=== PATIENT | male | born 1980 | race American Indian/Alaskan Native ===

== ENCOUNTER 2018-06-17 09:27 | Inpatient (IN) | payer OTHER, SELFPAY ==
[2018-06-17] MEDS ORDERED: NITRO-BID 2% TP ONE (10:13)
[2018-06-17] MEDS ORDERED: NORMODYNE IV ONE ×3 (10:16→11:15)
[2018-06-17 10:19] LABS: Basophils % (Auto) 0.4 % (0.0-1.8); Eosinophils # (Auto) 0.1 K/mm3 (0.0-0.4); Eosinophils % (Auto) 1.4 % (0.0-4.3); Hematocrit 27.2 % (35.5-45.6); Hemoglobin 8.4 gm/dl (11.8-15.2); Lymphocytes # (Auto) 1.6 K/mm3 (1.2-5.4); Lymphocytes % (Auto) 20.3 % (13.4-35.0); Mean Corpuscular HGB Conc 31 % (32-34); Mean Corpuscular Volume 77 fl (84-94); Monocytes # (Auto) 0.8 K/mm3 (0.0-0.8); Monocytes % (Auto) 10.5 % (0.0-7.3); Platelet Count 142 K/mm3 (140-440); Red Blood Count 3.54 M/mm3 (3.65-5.03); Red Cell Distribution Width 19.2 % (13.2-15.2)
--- NOTE | 2018-06-17 10:20 | Emergency Department Report ---
ED Chest Pain HPI - General Chief Complaint: Chest Pain Stated Complaint: CP Time Seen by Provider: 06/17/18 10:01 Source: patient Mode of arrival: Stretcher Limitations: No Limitations - History of Present Illness Initial Comments: Mr. Gross is a very pleasant 38-year-old male who presents to the ER with his via EMS. He has a history of severe hypertension, chronic kidney disease CHF COPD and depression. He has had 3 days of reproducible chest pain with exertion. However today became more severe. He was crying due to such severe pain. Pain Is Sharp Central radiating to the neck and back. He has associated shortness of breath. Denies hand pain now is 0 out of 10 after aspirin and nitroglycerin provided by EMS. He did have history of angina. According to his 's recollection, ge was admitted approximately one year ago at [facility] for "angina". No history of heart attack. Mr. Gross Is followed by nephrology, cardiology and PCP are within the [facility]. He has never received treatment at our hospital. MD Complaint: chest pain -: Gradual, days(s) (3) Onset: during rest, during exertion Pain Location: substernal Pain Radiation: back Severity: severe Severity scale (0 -10): 10 Quality: sharp Consistency: constant Improves With: nitroglycerin Worsens With: exertion re: dyspnea Treatments Prior to Arrival: aspirin, nitroglycerin Aspirin use within the Past 7 Days: (1) Yes - Related Data Home Medications Medication Instructions Recorded Confirmed Last Taken Hydralazine HCl 50 mg PO TID 06/17/18 06/17/18 06/16/18 50 ISOSORBIDE MONOnitrate [Imdur ER] 60 mg PO QDAY 06/17/18 06/17/18 06/16/18 60 Metoprolol Xl [Metoprolol 100 mg PO DAILY 06/17/18 06/17/18 06/16/18 SUCCINATE ER TAB] 100 NIFEdipine [Nifedipine ER] 90 mg PO DAILY 06/17/18 06/17/18 06/16/18 90 Pantoprazole [Protonix] 40 mg PO QDAY 06/17/18 06/17/18 06/16/18 40 Allergies Allergy/AdvReac Type Severity Reaction Status Date / Time ibuprofen Allergy Bleeding Verified 06/17/18 09:52 Heart Score - HEART Score History: Moderately suspicious EKG: Non-specific Age: < 45 Risk factors: > 3 risk factors or hx of atherosclerotic disease Troponin: 1-3x normal limit HEART Score: 5 ED Review of Systems ROS: Stated complaint: CP Other details as noted in HPI Comment: All other systems reviewed and negative Constitutional: denies: fever, malaise Respiratory: denies: cough Cardiovascular: chest pain Gastrointestinal: denies: abdominal pain, nausea, vomiting ED Past Medical Hx - Past Medical History Previous Medical History?: Yes Hx Hypertension: Yes Hx Congestive Heart Failure: Yes Hx GERD: Yes Hx Renal Disease: Yes Hx Psychiatric Treatment: Yes (Depression) - Surgical History Additional Surgical History: Vasectomy - Social History Smoking Status: Never Smoker Substance Use Type: None - Medications Home Medications: Home Medications Medication Instructions Recorded Confirmed Last Taken Type Hydralazine HCl 50 mg PO TID 06/17/18 06/17/18 06/16/18 History 50 ISOSORBIDE MONOnitrate [Imdur ER] 60 mg PO QDAY 06/17/18 06/17/18 06/16/18 History 60 Metoprolol Xl [Metoprolol 100 mg PO DAILY 06/17/18 06/17/18 06/16/18 History SUCCINATE ER TAB] 100 NIFEdipine [Nifedipine ER] 90 mg PO DAILY 06/17/18 06/17/18 06/16/18 History 90 Pantoprazole [Protonix] 40 mg PO QDAY 06/17/18 06/17/18 06/16/18 History 40 ED Physical Exam - General Limitations: No Limitations General appearance: alert, in no apparent distress - Head Head exam: Present: atraumatic, normocephalic - Eye Eye exam: Present: normal appearance - ENT ENT exam: Present: mucous membranes moist - Neck Neck exam: Present: normal inspection. Absent: tenderness, meningismus - Respiratory Respiratory exam: Present: normal lung sounds bilaterally. Absent: respiratory distress, wheezes, rales, rhonchi - Cardiovascular Cardiovascular Exam: Present: regular rate, normal rhythm, normal heart sounds. Absent: systolic murmur, diastolic murmur, rubs, gallop - GI/Abdominal GI/Abdominal exam: Present: soft. Absent: distended, tenderness, guarding, rebound - Rectal Rectal exam: Present: deferred - Extremities Exam Extremities exam: Present: normal inspection - Back Exam Back exam: Present: normal inspection - Neurological Exam Neurological exam: Present: alert, oriented X3 - Psychiatric Psychiatric exam: Present: normal affect, normal mood - Skin Skin exam: Present: warm, dry, intact, normal color. Absent: rash ED Course Vital Signs 06/17/18 06/17/18 06/17/18 09:35 09:54 10:20 Temperature 97.9 F Pulse Rate 86 89 Respiratory 13 14 Rate Blood Pressure 204/136 229/155 Blood Pressure [Left] O2 Sat by Pulse 95 93 Oximetry 06/17/18 06/17/18 06/17/18 10:52 11:07 11:16 Temperature Pulse Rate 79 79 82 Respiratory 14 12 11 L Rate Blood Pressure 240/140 240/140 Blood Pressure 221/135 [Left] O2 Sat by Pulse 93 99 98 Oximetry 06/17/18 06/17/18 06/17/18 11:17 11:30 11:46 Temperature Pulse Rate 83 82 84 Respiratory 15 17 Rate Blood Pressure 210/140 240/140 Blood Pressure [Left] O2 Sat by Pulse 97 97 Oximetry 06/17/18 06/17/18 06/17/18 12:00 12:16 12:30 Temperature Pulse Rate 88 93 H 93 H Respiratory 19 16 14 Rate Blood Pressure 172/106 165/102 164/94 Blood Pressure [Left] O2 Sat by Pulse 97 98 99 Oximetry 06/17/18 06/17/18 06/17/18 12:46 13:00 13:16 Temperature Pulse Rate 88 88 89 Respiratory 16 22 21 Rate Blood Pressure 164/94 146/87 146/87 Blood Pressure [Left] O2 Sat by Pulse 99 98 98 Oximetry 06/17/18 06/17/18 06/17/18 13:30 13:46 14:00 Temperature Pulse Rate 87 86 92 H Respiratory 13 24 16 Rate Blood Pressure 153/96 153/96 187/108 Blood Pressure [Left] O2 Sat by Pulse 98 96 99 Oximetry 06/17/18 14:16 Temperature Pulse Rate 91 H Respiratory 12 Rate Blood Pressure 187/108 Blood Pressure [Left] O2 Sat by Pulse 99 Oximetry ED Medical Decision Making - Lab Data Result diagrams: 06/17/18 10:07 06/17/18 10:07 Laboratory Results - last 24 hr 06/17/18 06/17/18 06/17/18 10:07 10:07 12:42 WBC 7.8 RBC 3.54 L Hgb 8.4 L Hct 27.2 L MCV 77 L MCH 24 L MCHC 31 L RDW 19.2 H Plt Count 142 Lymph % (Auto) 20.3 [place] % (Auto) 10.5 H Eos % (Auto) 1.4 Baso % (Auto) 0.4 Lymph # 1.6 [place] # 0.8 Eos # 0.1 Baso # 0.0 Seg Neutrophils % 67.4 Seg Neutrophils # 5.2 Sodium 144 Potassium 4.0 Chloride 109.4 H Carbon Dioxide 20 L Anion Gap 19 BUN 53 H Creatinine 9.7 H Estimated GFR 6 BUN/Creatinine Ratio 5 Glucose 91 Calcium 8.3 L Troponin T 0.100 H 0.103 H* Triglycerides 98 Cholesterol 161 LDL Cholesterol Direct 121 HDL Cholesterol 38 L Cholesterol/HDL Ratio 4.23 - EKG Data -: EKG Interpreted by Me - EKG Data 06/17/18 14:37 EKG time at 10:01 Normal sinus rhythm rate 80 beats a minute normal axis positive LVH with repolarization no evidence of infarct or ischemia - Radiology Data Radiology results: report reviewed Atelectasis or infiltrate of the right middle lobe according to radiology report, - Medical Decision Making Mr. Gross presents with chest pain and hypertensive emergency. Patient did not take his blood pressure medicines prior to arrival. Highest systolic blood pressure 240 mm Hg , he required multiple doses of IV and TP medications to obtain lower blood pressure. Once blood pressure decreased to systolic 144 mm hg, Mr. Gross developed nausea and vomiting. Chest pain easily resolved with nitroglycerin. Therefore I did not feel that patient had dissection or pulmonary embolism. He does have a known history of " angina". He has been prescribed isosorbide dinitrate. He will require cardiac evaluation. explained that he was admitted for anginal symptoms last year at the [facility]. No hx of ND. I have asked our law secretary to obtain medical records from [facility]. Ms. Gross is admitted to telemetry, hospitalist service. Dr. Barnes accepted admission. No indication of pneumonia according to clinical presentation. Critical Care Time: Yes Critical care time in (mins) excluding proc time.: 40 Critical care attestation.: If time is entered above; I have spent that time in minutes in the direct care of this critically ill patient, excluding procedure time. 40 minutes of critical care time excluding procedures were used in the care of the patient. Patient required multiple assessments and interventions. I updated family members at the bedside. I reviewed the electronic medical record. I spoke with jewelry consultant involved in the care of the patient. ED Disposition Clinical Impression: Acute coronary syndrome, Hypertensive emergency Disposition: DC-[id number] OP ADMIT IP TO THIS HOSP Is pt being admited?: Yes Does the pt Need Aspirin: No Condition: Stable
[2018-06-17 10:40] LABS: Calcium 8.3 mg/dL (8.4-10.2)
[2018-06-17 10:58] LABS: Chol/HDL Ratio 4.23 %
[2018-06-17] MEDS ORDERED: MORPHINE ONE (11:09)
[2018-06-17] MEDS ORDERED: MORPHINE IV ONE (11:15)
[2018-06-17] MEDS ORDERED: APRESOLINE IV ONE ×2 (11:26→14:31)
--- NOTE | 2018-06-17 13:31 | XRay Report ---
FINAL REPORT EXAM: XR CHEST 1V AP HISTORY: dyspnea COMPARISON: None. TECHNIQUE: Single frontal view of the chest FINDINGS: The cardiomediastinal silhouette is normal in appearance. There atelectasis of the right middle lobe. The left lung is clear. No pleural effusion or pneumothor ax. No acute bony or soft tissue abnormality. IMPRESSION: Atelectasis or infiltrate of the right middle lobe.
[2018-06-17] MEDS ORDERED: PROTONIX PO ONE (14:41)
[2018-06-17] MEDS ORDERED: APRESOLINE PO ONE (14:41)
[2018-06-17] MEDS ORDERED: TOPROL XL PO ONE (14:41)
[2018-06-17] MEDS: ZOFRAN IV ONE ×2 (15:02→16:01)
[2018-06-17] MEDS ORDERED: PROCARDIA XL PO ONE (15:30)
[2018-06-17] MEDS ORDERED: APRESOLINE ONE (15:58)
[2018-06-17] MEDS ORDERED: ZOFRAN ONE (16:01)
[2018-06-17] MEDS: IMDUR PO SCH (17:55)
[2018-06-17] MEDS ORDERED: ZOFRAN IV PRN (18:02)
--- NOTE | 2018-06-17 19:18 | History and Physical Report ---
History of Present Illness Date of examination: 06/17/18 Date of admission: 06/17/18 13:03 Chief complaint: CC Chest pain for 3 days History of present illness: History of Present Illness: 38 y/o AAM with pmh of HTN,GHF ,COPD and ESRD <Morbid obesity and Depression comes by EMS for recurrent Chest pain since 3 days.Worse today and exacerbated by exertion.No diaphoresis or Palpitations.Slight SOB.No fever or chills.Pain is sharp and radiating to the neck and back.Intensity is about 7/10.No syncope. Past Medical History Previous Medical History?: Yes Hx Hypertension: Yes Hx Congestive Heart Failure: Yes Hx GERD: Yes Hx Renal Disease: Yes Hx Psychiatric Treatment: Yes (Depression) Surgical History Additional Surgical History: Vasectomy Social History Smoking Status: Never Smoker Substance Use Type: None Family history Htn Medications Home Medications: Home Medications Medication Instructions Recorded Confirmed Last Taken Type Hydralazine HCl 50 mg PO TID 06/17/18 06/17/18 06/16/18 History 50 ISOSORBIDE MONOnitrate [Imdur ER] 60 mg PO QDAY 06/17/18 06/17/18 06/16/18 Histo ry 60 Metoprolol Xl [Metoprolol 100 mg PO DAILY 06/17/18 06/17/18 06/16/18 History SUCCINATE ER TAB] 100 NIFEdipine [Nifedipine ER] 90 mg PO DAILY 06/17/18 06/17/18 06/16/18 History 90 Pantoprazole [Protonix] 40 mg PO QDAY 06/17/18 06/17/18 06/16/18 History 40 Review of Systems ROS: Stated complaint: CP Other details as noted in HPI Comment: All other systems reviewed and negative Constitutional: denies: fever, malaise Respiratory: denies: cough Cardiovascular: chest pain Gastrointestinal: denies: abdominal pain, nausea, vomiting Medications and Allergies Allergies Allergy/AdvReac Type Severity Reaction Status Date / Time ibuprofen Allergy Bleeding Verified 06/17/18 09:52 Home Medications Medication Instructions Recorded Confirmed Last Taken Type Hydralazine HCl 50 mg PO TID 06/17/18 06/17/18 06/16/18 History 50 ISOSORBIDE MONOnitrate [Imdur ER] 60 mg PO QDAY 06/17/18 06/17/18 06/16/18 History 60 Metoprolol Xl [Metoprolol 100 mg PO DAILY 06/17/18 06/17/18 06/16/18 History SUCCINATE ER TAB] 100 NIFEdipine [Nifedipine ER] 90 mg PO DAILY 06/17/18 06/17/18 06/16/18 History 90 Pantoprazole [Protonix] 40 mg PO QDAY 06/17/18 06/17/18 06/16/18 History 40 Active Meds: Active Medications Isosorbide Mononitrate (Imdur) 60 mg PO QDAY [facility] Last Admin: 06/17/18 17:55 Dose: 60 mg Documented by: Ondansetron HCl (Zofran) 4 mg IV Q4H PRN PRN Reason: Nausea And Vomiting Last Admin: 06/17/18 18:19 Dose: 4 mg Documented by: Exam - Constitutional Vitals: Temp Pulse Resp BP Pulse Ox 97.9 F 96 H 18 144/86 91 06/17/18 17:04 06/17/18 17:55 06/17/18 17:04 06/17/18 17:55 06/17/18 17:04 General appearance: Present: no acute distress, well-nourished - EENT Eyes: Present: PERRL ENT: hearing intact, clear oral mucosa - Neck Neck: Present: supple, normal ROM - Respiratory Respiratory effort: normal Respiratory: bilateral: CTA - Cardiovascular Heart rate: 78 Rhythm: regular Heart Sounds: Present: S1 & S2. Absent: rub, click - Extremities Extremities: no ischemia, pulses intact, pulses symmetrical, No edema Peripheral Pulses: within normal limits - Abdominal General gastrointestinal: Present: soft, non-tender, non-distended, normal bowel sounds Male genitourinary: Present: normal - Integumentary Integumentary: Present: clear, warm, dry - Musculoskeletal Musculoskeletal: gait normal, strength equal bilaterally - Psychiatric Psychiatric: appropriate mood/affect, intact judgment & insight - Neurologic Neurologic: CNII-XII intact, moves all extremities - Allied Health Allied health notes reviewed: nursing Results - Labs CBC & Chem 7: 06/18/18 04:17 06/18/18 04:17 Labs: Laboratory Last Values WBC 7.8 K/mm3 (4.5-11.0) 06/17/18 10:07 RBC 3.54 M/mm3 (3.65-5.03) L 06/17/18 10:07 Hgb 8.4 gm/dl (11.8-15.2) L 06/17/18 10:07 Hct 27.2 % (35.5-45.6) L 06/17/18 10:07 MCV 77 fl (84-94) L 06/17/18 10:07 MCH 24 pg (28-32) L 06/17/18 10:07 MCHC 31 % (32-34) L 06/17/18 10:07 RDW 19.2 % (13.2-15.2) H 06/17/18 10:07 Plt Count 142 K/mm3 (140-440) 06/17/18 10:07 Lymph % (Auto) 20.3 % (13.4-35.0) 06/17/18 10:07 [place] % (Auto) 10.5 % (0.0-7.3) H 06/17/18 10:07 Eos % (Auto) 1.4 % (0.0-4.3) 06/17/18 10:07 Baso % (Auto) 0.4 % (0.0-1.8) 06/17/18 10:07 Lymph # 1.6 K/mm3 (1.2-5.4) 06/17/18 10:07 [place] # 0.8 K/mm3 (0.0-0.8) 06/17/18 10:07 Eos # 0.1 K/mm3 (0.0-0.4) 06/17/18 10:07 Baso # 0.0 K/mm3 (0.0-0.1) 06/17/18 10:07 Seg Neutrophils % 67.4 % (40.0-70.0) 06/17/18 10:07 Seg Neutrophils # 5.2 K/mm3 (1.8-7.7) 06/17/18 10:07 Sodium 144 mmol/L (137-145) 06/17/18 10:07 Potassium 4.0 mmol/L (3.6-5.0) 06/17/18 10:07 Chloride 109.4 mmol/L (98-107) H 06/17/18 10:07 Carbon Dioxide 20 mmol/L (22-30) L 06/17/18 10:07 Anion Gap 19 mmol/L 06/17/18 10:07 BUN 53 mg/dL (9-20) H 06/17/18 10:07 Creatinine 9.7 mg/dL (0.8-1.5) H 06/17/18 10:07 Estimated GFR 6 ml/min 06/17/18 10:07 BUN/Creatinine Ratio 5 % 06/17/18 10:07 Glucose 91 mg/dL (75-100) 06/17/18 10:07 Calcium 8.3 mg/dL (8.4-10.2) L 06/17/18 10:07 Troponin T 0.106 ng/mL (0.00-0.029) H* 06/17/18 15:53 Triglycerides 98 mg/dL (2-149) 06/17/18 10:07 Cholesterol 161 mg/dL (50-199) 06/17/18 10:07 LDL Cholesterol Direct 121 mg/dL (50-130) 06/17/18 10:07 HDL Cholesterol 38 mg/dL (40-59) L 06/17/18 10:07 Cholesterol/HDL Ratio 4.23 % 06/17/18 10:07 - Imaging and Cardiology EKG: report reviewed CT scan - chest: report reviewed (IMPRESSION: Atelectasis or infiltrate of R middle lobe) Assessment and Plan Advance Directives: Yes (Full code) VTE prophylaxis?: Chemical Plan of care discussed with patient/family: Yes - Patient Problems (1) Hypertensive emergency Current Visit: Yes Status: Acute Plan to address problem: Initial BP very high 204/136 and 229/155 PO HYudralazine Metoprolol and Nifedipine initiated IV Hydralazine and IV Labetolol initiated Counselled about compliance Patient non compliant (2) Acute coronary syndrome Current Visit: Yes Status: Acute Plan to address problem: W/u for NV/Ischemia Lexiscan on Tuesday AM and serial Troponins (3) ESRD on hemodialysis Current Visit: Yes Status: Chronic Plan to address problem: Nephrolology trigonometry teacher consulted for possible HD today or tomorrow (4) GERD (gastroesophageal reflux disease) Current Visit: Yes Status: Chronic Qualifiers: Esophagitis presence: with esophagitis Qualified Code(s): K21.0 - Gastro- esophageal reflux disease with esophagitis Plan to address problem: On PPI's/Famotidine (5) Anemia Current Visit: Yes Status: Chronic Qualifiers: Anemia type: due to chronic kidney disease Chronic kidney disease stage: on chronic dialysis Qualified Code(s): N18.6 - End stage renal disease; D63.1 - Anemia in chronic kidney disease; Z99.2 - Dependence on renal dialysis Plan to address problem: Epogen as outpatient (6) DVT prophylaxis Current Visit: Yes Status: Acute Plan to address problem: On Heparin and GI prophylaxis
[2018-06-17] MEDS ORDERED: TYLENOL PO PRN (19:19)
[2018-06-17] MEDS ORDERED: SODIUM CHLORIDE FLUSH SYRINGE 10 ML IV PRN (19:19)
[2018-06-17] MEDS ORDERED: PHENERGAN PR PRN (19:19)
[2018-06-17] MEDS ORDERED: NON-FORMULARY (Nifedipine [Nifedipine Er] 90 MG) PO SCH (19:30)
[2018-06-17] MEDS ORDERED: IMDUR PO SCH (20:00)
[2018-06-17] MEDS ORDERED: NON-FORMULARY (Hydralazine Hcl [Hydralazine Hcl] 50 MG) PO SCH (20:00)
[2018-06-17] MEDS: APRESOLINE PO SCH (22:42)
[2018-06-17] MEDS: PROTONIX PO SCH (22:43)
[2018-06-17] MEDS: SODIUM CHLORIDE FLUSH SYRINGE 10 ML IV SCH (22:43)
[2018-06-18 05:01] LABS: Basophils % (Auto) 0.3 % (0.0-1.8); Eosinophils % (Auto) 0.1 % (0.0-4.3); Hematocrit 28.7 % (35.5-45.6); Hemoglobin 8.9 gm/dl (11.8-15.2); Lymphocytes # (Auto) 0.8 K/mm3 (1.2-5.4); Mean Corpuscular HGB Conc 31 % (32-34); Mean Corpuscular Volume 77 fl (84-94); Monocytes # (Auto) 0.7 K/mm3 (0.0-0.8); Platelet Count 149 K/mm3 (140-440); Red Blood Count 3.74 M/mm3 (3.65-5.03); Red Cell Distribution Width 19.3 % (13.2-15.2)
[2018-06-18 05:34] LABS: Albumin 3.3 g/dL (3.9-5); Calcium 8.7 mg/dL (8.4-10.2)
[2018-06-18] MEDS: APRESOLINE PO SCH ×3 (06:27→21:52)
[2018-06-18] MEDS: PERCOCET 5/325 PO PRN ×2 (06:33→11:46)
[2018-06-18] MEDS: IMDUR PO SCH (09:45)
[2018-06-18] MEDS: PROTONIX PO SCH (09:45)
[2018-06-18] MEDS: PROCARDIA XL PO SCH (09:46)
[2018-06-18] MEDS: TOPROL XL PO SCH (09:46)
[2018-06-18] MEDS: SODIUM CHLORIDE FLUSH SYRINGE 10 ML IV SCH ×2 (09:47→21:55)
[2018-06-18] MEDS: ZOFRAN IV PRN (11:41)
--- NOTE | 2018-06-18 13:19 | Consultation ---
History of Present Illness - Reason for Consult Consult date: 06/18/18 acute renal failure, chronic renal failure - History of Present Illness History of present illness: Mr Gross is a 38 year old M with a PMH of CKD not on dialysis, HTN, CHF, COPD who has been admitted to the [facility] with chest pain as well as SHOB and nausea and vomiting. He denies diarrhea, dysuria, fever, chill s. He has 2+ BLE edema. Pt has a h/o CKD and is not on dialysis. He says he is making urine. ROS: As in HPI otherwise 12 point review of systems -ve Past Medical History Previous Medical History?: Yes Hx Hypertension: Yes Hx Congestive Heart Failure: Yes Hx GERD: Yes Hx Renal Disease: Yes Hx Psychiatric Treatment: Yes (Depression) Surgical History Additional Surgical History: Vasectomy Social History Smoking Status: Never Smoker Substance Use Type: None Family history HTN Medications and Allergies Allergies Allergy/AdvReac Type Severity Reaction Status Date / Time ibuprofen Allergy Bleeding Verified 06/17/18 09:52 Home Medications Medication Instructions Recorded Confirmed Last Taken Type Hydralazine HCl 50 mg PO TID 06/17/18 06/17/18 06/16/18 History 50 ISOSORBIDE MONOnitrate [Imdur ER] 60 mg PO QDAY 06/17/18 06/17/18 06/16/18 History 60 Metoprolol Xl [Metoprolol 100 mg PO DAILY 06/17/18 06/17/18 06/16/18 History SUCCINATE ER TAB] 100 NIFEdipine [Nifedipine ER] 90 mg PO DAILY 06/17/18 06/17/18 06/16/18 History 90 Pantoprazole [Protonix] 40 mg PO QDAY 06/17/18 06/17/18 06/16/18 History 40 Active Meds: Active Medications Acetaminophen (Tylenol) 650 mg PO Q4H PRN PRN Reason: Pain MILD(1-3)/Fever >100.5/VALDEZ Hydralazine HCl (Apresoline) 50 mg PO Q8HR [facility] Last Admin: 06/18/18 06:27 Dose: 50 mg Documented by: Hydromorphone HCl (Dilaudid) 1 mg IV Q3H PRN PRN Reason: Pain , Severe (7-10) Isosorbide Mononitrate (Imdur) 60 mg PO QDAY [facility] Last Admin: 06/18/18 09:45 Dose: 60 mg Documented by: Metoprolol Succinate (Toprol Xl) 100 mg PO DAILY [facility] Last Admin: 06/18/18 09:46 Dose: 100 mg Documented by: Nifedipine (Procardia Xl) 90 mg PO QDAY [facility] Last Admin: 06/18/18 09:46 Dose: 90 mg Documented by: Ondansetron HCl (Zofran) 4 mg IV Q8H PRN PRN Reason: Nausea And Vomiting Last Admin: 06/18/18 11:41 Dose: 4 mg Documented by: Oxycodone/Acetaminophen (Percocet 5/325) 1 tab PO Q6H PRN PRN Reason: Pain, Moderate (4-6) Last Admin: 06/18/18 11:46 Dose: 1 tab Documented by: Pantoprazole Sodium (Protonix) 40 mg PO QDAY [facility] Last Admin: 06/18/18 09:45 Dose: 40 mg Documented by: Promethazine HCl (Phenergan) 25 mg IN Q6H PRN PRN Reason: N/V IF NPO AND NO IV ACCESS Sodium Chloride (Sodium Chloride Flush Syringe 10 Ml) 10 ml IV BID [facility] Last Admin: 06/18/18 09:47 Dose: 10 ml Documented by: Sodium Chloride (Sodium Chloride Flush Syringe 10 Ml) 10 ml IV PRN PRN PRN Reason: LINE FLUSH Exam - Vital Signs Vital signs: Vital Signs Temp Pulse Resp BP Pulse Ox 97.9 F 86 13 204/136 95 06/17/18 09:35 06/17/18 09:35 06/17/18 09:35 06/17/18 09:35 06/17/18 09:35 - Physical Exam Narrative exam: GE:AAOX3, HEENT:PERRLA Neck:Supple Chest:Coarse BS BL CVS:RRR Abd:Soft, BS+ Ext: 2+ BLE edema UG: No rodriguez Psyche:Appropriate mood Results - Lab Results 06/18/18 04:17 06/18/18 04:17 Most recent lab results Calcium 8.7 mg/dL (8.4-10.2) 06/18/18 04:17 Assessment and Plan Assessment: Acute Kidney injury on top of CKD vs CKD progression Chest Pain Metabolic acidosis: Acute on chronic CHF Essential HTN: Hyperlipidemia, chronic: Anemia of chronic disease: Obesity: Plan -He likely has progressive CKD. Check Urine studies, Renal US. If renal function does not improve will need dialysis initiation. -CXR congested. Diurese with lasix 80 mg BID IV -Renally dose all meds and avoid nephrotoxic meds -Avoid RAAS inhibitors for now -Titrate BP meds PRN -Monitor H&H, Check Iron pane. Start Epogen. Mukesh Lindsey MD [phone]
--- NOTE | 2018-06-18 13:25 | Progress Note ---
Assessment and Plan Assessment and plan: Patient is 38 yo man with a history of hypertension, depression, CHF, CKD 4 not on hemodialysis and gerd who presented with chest pains. -Hypertensive emergency, Initial BP very high, 204/136 and 229/155, PO HYudralazine Metoprolol and Nifedipine initiated, IV Hydralazine and IV Labetolol initiated, -Elevated troponins with chest pains, Acute coronary syndrome: consult Cardiology -ARF/CKD 4, not on hemodialysis: consult nephrology -GERD (gastroesophageal reflux disease) -AOCD: monitor cbc -DVT prophylaxis: On Heparin and GI prophylaxis -Non-compliance: Counseled about compliance History Interval history: Patient was seen and examined. Follow-up on current diagnosis of chest pains. Overnight uneventful. Patient denies any shortness breath, nausea/vomiting or severe headaches. Imaging, nursing note, chart, labs and old chart reviewed. Discussed with patient. Hospitalist Physical - Physical exam Narrative exam: Gen: WDWN, NAD, Awake, Alert, Orientated x 3, bmi 40.9 HEENT: NCAT, EOMI, PERRL, OP Clear Neck: supple, no adenopathy, no thyromegaly, no JVD CVS/Heart: Reg bradycardia, normal S1S2, pulses present bilaterally Chest/Lungs: diminished, Symmetrical chest expansion, good air entry bilaterally GI/Abdomen: soft, NTND, good bowel sounds, no guarding or rebound /Bladder: no suprapubic tenderness, no CVA or paraspinal tenderness Extermity/Skin: bilateral leg edema, no obvious rash MSK: FROM x 4 Neuro: CN 2-12 grossly intact, no new focal deficits Psych: calm - Constitutional Vitals: Temp Pulse Resp BP Pulse Ox 98.3 F 100 H 20 126/76 91 06/18/18 08:19 06/18/18 09:46 06/18/18 11:46 06/18/18 09:46 06/18/18 10:00 General appearance: Present: no acute distress, well-nourished Results - Labs CBC & Chem 7: 06/18/18 04:17 06/18/18 04:17 Labs: Laboratory Last Values WBC 9.4 K/mm3 (4.5-11.0) 06/18/18 04:17 RBC 3.74 M/mm3 (3.65-5.03) 06/18/18 04:17 Hgb 8.9 gm/dl (11.8-15.2) L 06/18/18 04:17 Hct 28.7 % (35.5-45.6) L 06/18/18 04:17 MCV 77 fl (84-94) L 06/18/18 04:17 MCH 24 pg (28-32) L 06/18/18 04:17 MCHC 31 % (32-34) L 06/18/18 04:17 RDW 19.3 % (13.2-15.2) H 06/18/18 04:17 Plt Count 149 K/mm3 (140-440) 06/18/18 04:17 Lymph % (Auto) 9.0 % (13.4-35.0) L 06/18/18 04:17 [place] % (Auto) 7.0 % (0.0-7.3) 06/18/18 04:17 Eos % (Auto) 0.1 % (0.0-4.3) 06/18/18 04:17 Baso % (Auto) 0.3 % (0.0-1.8) 06/18/18 04:17 Lymph # 0.8 K/mm3 (1.2-5.4) L 06/18/18 04:17 [place] # 0.7 K/mm3 (0.0-0.8) 06/18/18 04:17 Eos # 0.0 K/mm3 (0.0-0.4) 06/18/18 04:17 Baso # 0.0 K/mm3 (0.0-0.1) 06/18/18 04:17 Seg Neutrophils % 83.6 % (40.0-70.0) H 06/18/18 04:17 Seg Neutrophils # 7.8 K/mm3 (1.8-7.7) H 06/18/18 04:17 Sodium 144 mmol/L (137-145) 06/18/18 04:17 Potassium 4.0 mmol/L (3.6-5.0) 06/18/18 04:17 Chloride 109.0 mmol/L (98-107) H 06/18/18 04:17 Carbon Dioxide 20 mmol/L (22-30) L 06/18/18 04:17 Anion Gap 19 mmol/L 06/18/18 04:17 BUN 54 mg/dL (9-20) H 06/18/18 04:17 Creatinine 9.9 mg/dL (0.8-1.5) H 06/18/18 04:17 Estimated GFR 7 ml/min 06/18/18 04:17 BUN/Creatinine Ratio 5 % 06/18/18 04:17 Glucose 98 mg/dL (75-100) 06/18/18 04:17 Hemoglobin A1c < 4.2 % (4-6) 06/17/18 19:24 Calcium 8.7 mg/dL (8.4-10.2) 06/18/18 04:17 Total Bilirubin 0.20 mg/dL (0.1-1.2) 06/18/18 04:17 AST 13 units/L (5-40) 06/18/18 04:17 ALT 12 units/L (7-56) 06/18/18 04:17 Alkaline Phosphatase 71 units/L (35-129) 06/18/18 04:17 Troponin T 0.099 ng/mL (0.00-0.029) H 06/17/18 20:00 Total Protein 6.9 g/dL (6.3-8.2) 06/18/18 04:17 Albumin 3.3 g/dL (3.9-5) L 06/18/18 04:17 Albumin/Globulin Ratio 0.9 % 06/18/18 04:17 Triglycerides 98 mg/dL (2-149) 06/17/18 10:07 Cholesterol 161 mg/dL (50-199) 06/17/18 10:07 LDL Cholesterol Direct 121 mg/dL (50-130) 06/17/18 10:07 HDL Cholesterol 38 mg/dL (40-59) L 06/17/18 10:07 Cholesterol/HDL Ratio 4.23 % 06/17/18 10:07
[2018-06-18] MEDS ORDERED: REGLAN IV PRN (13:47)
--- NOTE | 2018-06-18 15:35 | XRay Report ---
FINAL REPORT EXAM: XR ABDOMEN 1V AP HISTORY: nausea and vometing, call results COMPARISON: None. TECHNIQUE: Two views of the abdomen FINDINGS: Nonobstructive bowel gas pattern. No free air. No abnormal calcification. No organomegaly. No acute b dedrick or soft tissue abnormality. Large amount of stool within the colon. IMPRESSION: Nonobstructive bowel gas pattern.
[2018-06-18] MEDS ORDERED: MIRALAX 3350 PO PRN (17:10)
--- NOTE | 2018-06-18 18:08 | Ultrasound Report ---
FINAL REPORT EXAM: US RENAL BILAT HISTORY: suzette COMPARISON: None available. TECHNIQUE: Several real-time grayscale and color Doppler images were obtained. FINDINGS: Right kidney measures 11.5 x 5.3 x 7.4 centimeters. Cortex 2.5 centimeters. Left kidney measures 12.0 x 6.6 x 6.0 centimeters. Cortex 1.8 centimeters. Increased echogenicity of the kidneys concerning fo r medical renal disease. This also limits evaluation for focal renal lesion. At the lateral margin left kidney there is a hypoechoic indeterminate lesion measuring 2.3 x 2.0 x 3. 0 centimeters. Gross vascular flow to the kidneys. IMPRESSION: Increased echogenicity kidneys most often seen with chronic long-standing medical renal disease. No hydronephrosis. Indeterminate hypoechoic lesion at the lateral margin of the left kidney measuring 3 centimeters. Kelli id mass is not excluded.
[2018-06-18] MEDS: LASIX IV SCH (18:23)
[2018-06-19] MEDS: LASIX IV SCH ×2 (05:49→18:23)
[2018-06-19] MEDS: APRESOLINE PO SCH ×3 (05:49→22:10)
[2018-06-19] MEDS: PERCOCET 5/325 PO PRN ×4 (06:05→23:15)
[2018-06-19 06:53] LABS: Creatinine,Urine 80.8 mg/dL (0.1-20.0)
[2018-06-19 06:56] LABS: Amorphous Crystals,Urine 1+; Bilirubin,Urine NEG (Negative); Blood,Urine NEG (Negative); Color,Urine Straw (Yellow); Mucus,Urine FEW /HPF; Urobilinogen,Urine < 2.0 mg/dL (<2.0)
[2018-06-19 07:13] LABS: Protein/Creatinine Ratio,Urine 3.17
[2018-06-19] MEDS ORDERED: LEXISCAN IV ONE ×2 (08:40→08:41)
--- NOTE | 2018-06-19 09:37 | Progress Note ---
Assessment and Plan Acute Kidney injury on top of CKD vs CKD progression Chest Pain Metabolic acidosis: Acute on chronic CHF Essential HTN: Hyperlipidemia, chronic: Anemia of chronic disease: Obesity: Plan -He likely has progressive CKD. no hydronephrosis on renal US but possible solid mass, will consult urology - secondary GN and vasculitis work up ordered - no indication for [employer], if cardiac work up negative and the patient is overall stable with negative secondary GN work up, he can be discharged from renal standpoint and to be followed as an outpt. if remains volume overloaded or signs of uremia will start HD while inpatient -CXR congested. Diurese with lasix 80 mg BID IV -Renally dose all meds and avoid nephrotoxic meds -Avoid RAAS inhibitors for now -Titrate BP meds PRN -Monitor H&H, Check Iron pane. cont Epogen Subjective Date of service: 06/19/18 Principal diagnosis: chronic kidney disease Interval history: the patient was in stress test Objective - Vital Signs Vital signs: Vital Signs - 12hr 06/18/18 06/18/18 06/18/18 21:52 22:00 23:22 Temperature 98.0 F Pulse Rate 100 H 100 H 92 H Respiratory 18 Rate Blood Pressure 144/94 157/102 O2 Sat by Pulse 91 Oximetry 06/19/18 06/19/18 03:35 05:49 Temperature 98.4 F Pulse Rate 99 H 99 H Respiratory 18 Rate Blood Pressure 130/71 130/71 O2 Sat by Pulse 82 L Oximetry - Lab 06/18/18 04:17 06/18/18 04:17 Most recent lab results Calcium 8.7 mg/dL (8.4-10.2) 06/18/18 04:17 Urine Creatinine 80.8 mg/dL (0.1-20.0) H 06/18/18 06:30 Urine Sodium 63 mmol/L 06/18/18 06:30 Urine Total Protein 256 mg/dL (5-11.8) H 06/18/18 06:30 Medications & Allergies - Medications Allergies/Adverse Reactions: Allergies ibuprofen Allergy (Verified 06/17/18 09:52) Bleeding Home Medications: Home Medications Medication Instructions Recorded Confirmed Last Taken Type Hydralazine HCl 50 mg PO TID 06/17/18 06/17/18 06/16/18 History 50 ISOSORBIDE MONOnitrate [Imdur ER] 60 mg PO QDAY 06/17/18 06/17/18 06/16/18 History 60 Metoprolol Xl [Metoprolol 100 mg PO DAILY 06/17/18 06/17/18 06/16/18 History SUCCINATE ER TAB] 100 NIFEdipine [Nifedipine ER] 90 mg PO DAILY 06/17/18 06/17/18 06/16/18 History 90 Pantoprazole [Protonix] 40 mg PO QDAY 06/17/18 06/17/18 06/16/18 History 40 Active Medications: Generic Name Dose Route Start Last Admin Trade Name Freq PRN Reason Stop Dose Admin Acetaminophen 650 mg 06/17/18 19:19 Tylenol PO Q4H PRN Pain MILD(1-3)/Fever >100.5/VALDEZ Epoetin Jeison 10,000 unit 06/19/18 13:29 Procrit SUB-Q MOWEFR VERNELL Furosemide 80 mg 06/18/18 18:00 06/19/18 05:49 Lasix IV 80 mg 0600,1800 VRENELL Administration Hydralazine HCl 50 mg 06/17/18 22:00 06/19/18 05:49 Apresoline PO 50 mg Q8HR VERNELL Administration Hydromorphone HCl 1 mg 06/17/18 19:19 Dilaudid IV Q3H PRN Pain , Severe (7-10) Isosorbide Mononitrate 60 mg 06/17/18 16:00 06/18/18 09:45 Imdur PO 60 mg QDAY VERNELL Administration Metoclopramide HCl 10 mg 06/18/18 13:47 06/18/18 14:05 Reglan IV 10 mg Q6H PRN Administration Nausea And Vomiting Metoprolol Succinate 100 mg 06/18/18 10:00 06/18/18 09:46 Toprol Xl PO 100 mg DAILY VERNELL Administration Nifedipine 90 mg 06/18/18 10:00 06/18/18 09:46 Procardia Xl PO 90 mg QDAY VERNELL Administration Ondansetron HCl 4 mg 06/17/18 19:19 06/18/18 11:41 Zofran IV 4 mg Q8H PRN Administration Nausea And Vomiting Oxycodone/Acetaminophen 1 tab 06/17/18 19:19 06/19/18 06:05 Percocet 5/325 PO 1 tab Q6H PRN Administration Pain, Moderate (4-6) Pantoprazole Sodium 40 mg 06/17/18 22:00 06/18/18 09:45 Protonix PO 40 mg QDAY VERNELL Administration Polyethylene Glycol 17 gm 06/18/18 17:10 06/18/18 18:23 Miralax 3350 PO 17 gm QDAY PRN Administration Constipation Promethazine HCl 25 mg 06/17/18 19:19 Phenergan GA Q6H PRN N/V IF NPO AND NO IV ACCESS Sodium Chloride 10 ml 06/17/18 22:00 06/18/18 21:55 Sodium Chloride Flush Syringe 10 Ml IV 10 ml BID VERNELL Administration Sodium Chloride 10 ml 06/17/18 19:19 Sodium Chloride Flush Syringe 10 Ml IV PRN PRN LINE FLUSH
[2018-06-19] MEDS: ZOFRAN IV PRN (09:38)
[2018-06-19] MEDS ORDERED: ZOFRAN ONE (09:41)
--- NOTE | 2018-06-19 11:31 | Consultation ---
History of Present Illness Consult date: 06/19/18 Consult reason: chest pain History of present illness: Patient is a 38-year-old man with multiple medical problems. He has severe u ncontrolled hypertension, chronic kidney disease, COPD. His chronic kidney disease appears to be severe but he is not yet on hemodialysis. He presents to the hospital at this time with nonexertional chest pain, and on presentation was found severely hypertensive with a systolic blood pressure 200. Laboratory values on this presentation show anemia with a hematocrit of 27, and end-stage renal failure with a creatinine of 9.7. Troponin levels were measured, minimally elevated at 0.1, consistent value on multiple measurements. EKG was a sinus rhythm, left ventricular hypertrophy with diffuse repolarization changes of left ventricle hypertrophy. A chest x-ray showed mild cardiomegaly, clear lungs, no heart failure or fluid overload. The patient has had extensive prior ischemic cardiac workup including a cardiac catheterization just last year at [facility]. Patient describes a radial catheter approach, which reported normal coronaries, he is unable to articulate his left ventricular function assessment. We have requested his cardiac catheterization records for review. This morning, the medical service ordered a stress test which has been completed, results are pending. Past History Past Medical History: hypertension, renal failure Medications and Allergies Allergies Allergy/AdvReac Type Severity Reaction Status Date / Time ibuprofen Allergy Bleeding Verified 06/17/18 09:52 Home Medications Medication Instructions Recorded Confirmed Last Taken Type Hydralazine HCl 50 mg PO TID 06/17/18 06/17/18 06/16/18 History 50 ISOSORBIDE MONOnitrate [Imdur ER] 60 mg PO QDAY 06/17/18 06/17/18 06/16/18 History 60 Metoprolol Xl [Metoprolol 100 mg PO DAILY 06/17/18 06/17/18 06/16/18 History SUCCINATE ER TAB] 100 NIFEdipine [Nifedipine ER] 90 mg PO DAILY 06/17/18 06/17/18 06/16/18 History 90 Pantoprazole [Protonix] 40 mg PO QDAY 06/17/18 06/17/18 06/16/18 History 40 Active Meds: Active Medications Acetaminophen (Tylenol) 650 mg PO Q4H PRN PRN Reason: Pain MILD(1-3)/Fever >100.5/VALDEZ Epoetin Jeison (Procrit) 10,000 [facility] Furosemide (Lasix) 80 mg IV 0600,1800 [facility] Last Admin: 06/19/18 05:49 Dose: 80 mg Documented by: Hydralazine HCl (Apresoline) 50 mg PO Q8HR [facility] Last Admin: 06/19/18 05:49 Dose: 50 mg Documented by: Hydromorphone HCl (Dilaudid) 1 mg IV Q3H PRN PRN Reason: Pain , Severe (7-10) Isosorbide Mononitrate (Imdur) 60 mg PO QDAY [facility] Last Admin: 06/18/18 09:45 Dose: 60 mg Documented by: Metoclopramide HCl (Reglan) 10 mg IV Q6H PRN PRN Reason: Nausea And Vomiting Last Admin: 06/18/18 14:05 Dose: 10 mg Documented by: Metoprolol Succinate (Toprol Xl) 100 mg PO DAILY [facility] Last Admin: 06/18/18 09:46 Dose: 100 mg Documented by: Nifedipine (Procardia Xl) 90 mg PO QDAY [facility] Last Admin: 06/18/18 09:46 Dose: 90 mg Documented by: Ondansetron HCl (Zofran) 4 mg IV Q8H PRN PRN Reason: Nausea And Vomiting Last Admin: 06/19/18 09:38 Dose: 4 mg Documented by: Oxycodone/Acetaminophen (Percocet 5/325) 1 tab PO Q6H PRN PRN Reason: Pain, Moderate (4-6) Last Admin: 06/19/18 06:05 Dose: 1 tab Documented by: Pantoprazole Sodium (Protonix) 40 mg PO QDAY [facility] Last Admin: 06/18/18 09:45 Dose: 40 mg Documented by: Polyethylene Glycol (Miralax [id number]) 17 gm PO QDAY PRN PRN Reason: Constipation Last Admin: 06/18/18 18:23 Dose: 17 gm Documented by: Promethazine HCl (Phenergan) 25 mg DE Q6H PRN PRN Reason: N/V IF NPO AND NO IV ACCESS Sodium Chloride (Sodium Chloride Flush Syringe 10 Ml) 10 ml IV BID [facility] Last Admin: 06/18/18 21:55 Dose: 10 ml Documented by: Sodium Chloride (Sodium Chloride Flush Syringe 10 Ml) 10 ml IV PRN PRN PRN Reason: LINE FLUSH Review of Systems Cardiovascular: chest pain, shortness of breath, no orthopnea, no palpitations, no rapid/irregular heart beat, no edema, no syncope, no lightheadedness Physical Examination Vital Signs Temp Pulse Resp BP Pulse Ox 97.9 F 86 13 204/136 95 06/17/18 09:35 06/17/18 09:35 06/17/18 09:35 06/17/18 09:35 06/17/18 09:35 General appearance: no acute distress HEENT: Positive: PERRL, EOMI Neck: Positive: neck supple Cardiac: Positive: Reg Rate and Rhythm Lungs: Positive: Decreased Breath Sounds Neuro: Positive: Grossly Intact Abdomen: Positive: Soft Male genitourinary: Positive: deferred Skin: Positive: Clear Extremities: Absent: edema Results 06/18/18 04:17 06/18/18 04:17 EKG interpretations - Telemetry EKG Rhythm: Sinus Rhythm Assessment and Plan - Patient Problems (1) Chest pain Current Visit: Yes Status: Acute Plan to address problem: Chest pain is atypical, and the patient's report of a negative cardiac catheterization procedure just last year, makes this an unlikely presentation for symptomatic coronary disease. We will get the cardiac catheterization report from [facility] for review. We will order an echocardiogram for left ventricular function assessment, to tailor further medical therapy. (2) Uncontrolled hypertension Current Visit: Yes Status: Acute Plan to address problem: We will make recommendations for aggressive management and control of hypertension. (3) End stage renal disease Current Visit: Yes Status: Acute Plan to address problem: End-stage renal disease management with nephrology on board.
[2018-06-19] MEDS ORDERED: CARDURA PO ONE (11:35)
[2018-06-19] MEDS: PROCARDIA XL PO SCH (12:31)
[2018-06-19] MEDS: IMDUR PO SCH (12:32)
[2018-06-19] MEDS: PROTONIX PO SCH (12:32)
[2018-06-19] MEDS: TOPROL XL PO SCH (12:32)
--- NOTE | 2018-06-19 12:40 | Treadmill Report ---
THALLIUM STRESS TEST LEFT VENTRICLE: Left ventricle is moderately to severely dilated. Perfusion study demonstrates somewhat heterogeneous uptake of the tracer in all segments, but no significant fixed or reversible defects identified. Gated analysis demonstrates at least mild left ventricular systolic dysfunction with ejection fraction calculated at 45%. CONCLUSION: Evidence of a dilated cardiomyopathy with at least mild left ventricular systolic dysfunction. There is no reversible or significant fixed defect suggesting a nonischemic cardiomyopathy. Clinical correlation is recommended. JOB# [id number] CA/NTS
[2018-06-19] MEDS ORDERED: PROCRIT SUB-Q SCH (13:29)
--- NOTE | 2018-06-19 17:47 | Progress Note ---
Assessment and Plan Assessment and plan: Patient is 38 yo man with a history of hypertension, depression, CHF, CKD 4 not on hemodialysis and gerd who presented with chest pains. 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 Follow-up on current diagnosis of chest pains. Overnight uneventful. Patient denies any shortness breath, nausea/vomiting or severe headaches. Imaging, nursing note, chart, labs and old chart reviewed. Discussed with patient. and stepson at bedside. Hospitalist Physical - Physical exam Narrative exam: Gen: WDWN, NAD, Awake, Alert, Orientated x 3, bmi 40.9 HEENT: NCAT, EOMI, PERRL, OP Clear Neck: supple, no adenopathy, no thyromegaly, no JVD CVS/Heart: Reg bradycardia, normal S1S2, pulses present bilaterally Chest/Lungs: diminished, Symmetrical chest expansion, good air entry bilaterally GI/Abdomen: soft, NTND, good bowel sounds, no guarding or rebound /Bladder: no suprapubic tenderness, no CVA or paraspinal tenderness Extermity/Skin: bilateral leg edema, no obvious rash MSK: FROM x 4 Neuro: CN 2-12 grossly intact, no new focal deficits Psych: calm - Constitutional Vitals: Temp Pulse Resp BP Pulse Ox 98.1 F 96 H 20 131/69 96 06/19/18 17:42 06/19/18 17:41 06/19/18 17:41 06/19/18 17:41 06/19/18 17:41 General appearance: Present: no acute distress Results - Labs CBC & Chem 7: 06/18/18 04:17 06/18/18 04:17 Labs: Laboratory Last Values WBC 9.4 K/mm3 (4.5-11.0) 06/18/18 04:17 RBC 3.74 M/mm3 (3.65-5.03) 06/18/18 04:17 Hgb 8.9 gm/dl (11.8-15.2) L 06/18/18 04:17 Hct 28.7 % (35.5-45.6) L 06/18/18 04:17 MCV 77 fl (84-94) L 06/18/18 04:17 MCH 24 pg (28-32) L 06/18/18 04:17 MCHC 31 % (32-34) L 06/18/18 04:17 RDW 19.3 % (13.2-15.2) H 06/18/18 04:17 Plt Count 149 K/mm3 (140-440) 06/18/18 04:17 Lymph % (Auto) 9.0 % (13.4-35.0) L 06/18/18 04:17 [place] % (Auto) 7.0 % (0.0-7.3) 06/18/18 04:17 Eos % (Auto) 0.1 % (0.0-4.3) 06/18/18 04:17 Baso % (Auto) 0.3 % (0.0-1.8) 06/18/18 04:17 Lymph # 0.8 K/mm3 (1.2-5.4) L 06/18/18 04:17 [place] # 0.7 K/mm3 (0.0-0.8) 06/18/18 04:17 Eos # 0.0 K/mm3 (0.0-0.4) 06/18/18 04:17 Baso # 0.0 K/mm3 (0.0-0.1) 06/18/18 04:17 Seg Neutrophils % 83.6 % (40.0-70.0) H 06/18/18 04:17 Seg Neutrophils # 7.8 K/mm3 (1.8-7.7) H 06/18/18 04:17 Sodium 144 mmol/L (137-145) 06/18/18 04:17 Potassium 4.0 mmol/L (3.6-5.0) 06/18/18 04:17 Chloride 109.0 mmol/L (98-107) H 06/18/18 04:17 Carbon Dioxide 20 mmol/L (22-30) L 06/18/18 04:17 Anion Gap 19 mmol/L 06/18/18 04:17 BUN 54 mg/dL (9-20) H 06/18/18 04:17 Creatinine 9.9 mg/dL (0.8-1.5) H 06/18/18 04:17 Estimated GFR 7 ml/min 06/18/18 04:17 BUN/Creatinine Ratio 5 % 06/18/18 04:17 Glucose 98 mg/dL (75-100) 06/18/18 04:17 Hemoglobin A1c < 4.2 % (4-6) 06/17/18 19:24 Calcium 8.7 mg/dL (8.4-10.2) 06/18/18 04:17 Total Bilirubin 0.20 mg/dL (0.1-1.2) 06/18/18 04:17 AST 13 units/L (5-40) 06/18/18 04:17 ALT 12 units/L (7-56) 06/18/18 04:17 Alkaline Phosphatase 71 units/L (35-129) 06/18/18 04:17 Troponin T 0.099 ng/mL (0.00-0.029) H 06/17/18 20:00 Total Protein 6.9 g/dL (6.3-8.2) 06/18/18 04:17 Albumin 3.3 g/dL (3.9-5) L 06/18/18 04:17 Albumin/Globulin Ratio 0.9 % 06/18/18 04:17 Triglycerides 98 mg/dL (2-149) 06/17/18 10:07 Cholesterol 161 mg/dL (50-199) 06/17/18 10:07 LDL Cholesterol Direct 121 mg/dL (50-130) 06/17/18 10:07 HDL Cholesterol 38 mg/dL (40-59) L 06/17/18 10:07 Cholesterol/HDL Ratio 4.23 % 06/17/18 10:07 Urine Color Straw (Yellow) 06/18/18 06:30 Urine Turbidity Clear (Clear) 06/18/18 06:30 Urine pH 5.0 (5.0-7.0) 06/18/18 06:30 Ur Specific [place] 1.006 (1.003-1.030) 06/18/18 06:30 Urine Protein 100 mg/dl mg/dL (Negative) 06/18/18 06:30 Urine Glucose (UA) Neg mg/dL (Negative) 06/18/18 06:30 Urine Ketones Neg mg/dL (Negative) 06/18/18 06:30 Urine Blood Neg (Negative) 06/18/18 06:30 Urine Nitrite Neg (Negative) 06/18/18 06:30 Urine Bilirubin Neg (Negative) 06/18/18 06:30 Urine Urobilinogen < 2.0 mg/dL (<2.0) 06/18/18 06:30 Ur Leukocyte Esterase Neg (Negative) 06/18/18 06:30 Urine WBC (Auto) 2.0 /HPF (0.0-6.0) 06/18/18 06:30 Urine RBC (Auto) 5.0 /HPF (0.0-6.0) 06/18/18 06:30 Amorphous Crystals 1+ 06/18/18 06:30 Urine Mucus Few /HPF 06/18/18 06:30 Urine Eosinophils None seen (None Seen) 06/18/18 06:30 Urine Creatinine 80.8 mg/dL (0.1-20.0) H 06/18/18 06:30 Protein/Creatinin Ratio 3.17 06/18/18 06:30 Urine Sodium 63 mmol/L 06/18/18 06:30 Urine Urea Nitrogen 257 06/18/18 06:30 Urine Total Protein 256 mg/dL (5-11.8) H 06/18/18 06:30 Hep Bs Antigen Non-reactive (Negative) 06/19/18 16:00 Hepatitis C Antibody Non-reactive (NonReactive) 06/19/18 16:00 HIV 1&2 Antibody Rapid Non react (Non React) 06/19/18 16:00 HIV P24 Antigen Non react (Non React) 06/19/18 16:00
[2018-06-19] MEDS: PROCRIT SUB-Q SCH (19:18)
[2018-06-19] MEDS: SODIUM CHLORIDE FLUSH SYRINGE 10 ML IV SCH (22:11)
[2018-06-20 05:36] LABS: Basophils % (Auto) 0.6 % (0.0-1.8); Eosinophils # (Auto) 0.1 K/mm3 (0.0-0.4); Eosinophils % (Auto) 1.6 % (0.0-4.3); Hematocrit 26.7 % (35.5-45.6); Hemoglobin 8.1 gm/dl (11.8-15.2); Lymphocytes # (Auto) 1.2 K/mm3 (1.2-5.4); Lymphocytes % (Auto) 18.5 % (13.4-35.0); Mean Corpuscular HGB Conc 30 % (32-34); Mean Corpuscular Volume 77 fl (84-94); Monocytes # (Auto) 0.8 K/mm3 (0.0-0.8); Monocytes % (Auto) 11.8 % (0.0-7.3); Platelet Count 137 K/mm3 (140-440); Red Blood Count 3.45 M/mm3 (3.65-5.03)
[2018-06-20] MEDS: APRESOLINE PO SCH ×3 (05:42→21:06)
[2018-06-20] MEDS: LASIX IV SCH ×2 (05:43→18:45)
[2018-06-20 05:57] LABS: Calcium 8.7 mg/dL (8.4-10.2)
--- NOTE | 2018-06-20 09:50 | Progress Note ---
Assessment and Plan Assessment and plan: Patient is 38 yo man with a history of hypertension, depression, CHF, CKD 4 not on hemodialysis and gerd who presented with chest pains. * 06/19/18 2D ECHO: The left ventricular chamber size is normal. Severe concentric LVH. The myocardium has a granular appearance on echo raising the suspicion of infiltrative cardiomyopathy. Global left ventricular systolic function appears hyperdynamic, estimated EF 70-75%, abnormal left ventricular diastolic filling, c/w impaired relaxation, right ventricle wall thickness is moderately increased, right ventricle is mildly dilated, moderate AR, RVSP 48 mmHg, trivial pericardial effusion -Hypertensive malignancy with urgency with Initial BPs very high, 204/136 and 229/155, PO HYudralazine Metoprolol and Nifedipine initiated, IV Hydralazine and IV Labetolol initiated, -Elevated troponins with chest pains, Acute coronary syndrome unlikely: d/w Cardiology -ARF/CKD 5, ATN and Vasomotor nephrology, poa, not on hemodialysis, Cr is worsening: d/w Nephrology -GERD (gastroesophageal reflux disease): h2 christianne, d/c ppi due to renal failure -AOCD: monitor cbc -DVT prophylaxis: On Heparin and GI prophylaxis -Morbid obesity, bmi 40.9: 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 Follow-up on current diagnosis of chest pains. Overnight uneventful. Patient denies any shortness breath, nausea/vomiting or severe headaches. Imaging, nursing note, chart, labs and old chart reviewed. Discussed with patient. and stepson at bedside. Hospitalist Physical - Physical exam Narrative exam: Gen: WDWN, NAD, Awake, Alert, Orientated x 3, bmi 40.9 HEENT: NCAT, EOMI, PERRL, OP Clear Neck: supple, no adenopathy, no thyromegaly, no JVD CVS/Heart: Reg bradycardia, normal S1S2, pulses present bilaterally Chest/Lungs: diminished, Symmetrical chest expansion, good air entry bilaterally GI/Abdomen: soft, NTND, good bowel sounds, no guarding or rebound /Bladder: no suprapubic tenderness, no CVA or paraspinal tenderness Extermity/Skin: bilateral leg edema, no obvious rash MSK: FROM x 4 Neuro: CN 2-12 grossly intact, no new focal deficits Psych: calm - Constitutional Vitals: Temp Pulse Resp BP Pulse Ox 98.3 F 103 H 20 134/68 94 06/20/18 09:01 06/20/18 09:01 06/20/18 09:02 06/20/18 09:02 06/20/18 09:01 General appearance: Present: no acute distress Results - Labs CBC & Chem 7: 06/20/18 05:09 06/20/18 05:09 Labs: Laboratory Last Values WBC 6.5 K/mm3 (4.5-11.0) 06/20/18 05:09 RBC 3.45 M/mm3 (3.65-5.03) L 06/20/18 05:09 Hgb 8.1 gm/dl (11.8-15.2) L 06/20/18 05:09 Hct 26.7 % (35.5-45.6) L 06/20/18 05:09 MCV 77 fl (84-94) L 06/20/18 05:09 MCH 23 pg (28-32) L 06/20/18 05:09 MCHC 30 % (32-34) L 06/20/18 05:09 RDW 20.0 % (13.2-15.2) H 06/20/18 05:09 Plt Count 137 K/mm3 (140-440) L 06/20/18 05:09 Lymph % (Auto) 18.5 % (13.4-35.0) 06/20/18 05:09 [place] % (Auto) 11.8 % (0.0-7.3) H 06/20/18 05:09 Eos % (Auto) 1.6 % (0.0-4.3) 06/20/18 05:09 Baso % (Auto) 0.6 % (0.0-1.8) 06/20/18 05:09 Lymph # 1.2 K/mm3 (1.2-5.4) 06/20/18 05:09 [place] # 0.8 K/mm3 (0.0-0.8) 06/20/18 05:09 Eos # 0.1 K/mm3 (0.0-0.4) 06/20/18 05:09 Baso # 0.0 K/mm3 (0.0-0.1) 06/20/18 05:09 Seg Neutrophils % 67.5 % (40.0-70.0) 06/20/18 05:09 Seg Neutrophils # 4.4 K/mm3 (1.8-7.7) 06/20/18 05:09 Sodium 143 mmol/L (137-145) 06/20/18 05:09 Potassium 4.3 mmol/L (3.6-5.0) 06/20/18 05:09 Chloride 104.6 mmol/L (98-107) 06/20/18 05:09 Carbon Dioxide 26 mmol/L (22-30) 06/20/18 05:09 Anion Gap 17 mmol/L 06/20/18 05:09 BUN 55 mg/dL (9-20) H 06/20/18 05:09 Creatinine 11.6 mg/dL (0.8-1.5) H 06/20/18 05:09 Estimated GFR 6 ml/min 06/20/18 05:09 BUN/Creatinine Ratio 5 % 06/20/18 05:09 Glucose 106 mg/dL (75-100) H 06/20/18 05:09 Hemoglobin A1c < 4.2 % (4-6) 06/17/18 19:24 Calcium 8.7 mg/dL (8.4-10.2) 06/20/18 05:09 Phosphorus 6.60 mg/dL (2.5-4.5) H 06/20/18 05:09 Total Bilirubin 0.20 mg/dL (0.1-1.2) 06/18/18 04:17 AST 13 units/L (5-40) 06/18/18 04:17 ALT 12 units/L (7-56) 06/18/18 04:17 Alkaline Phosphatase 71 units/L (35-129) 06/18/18 04:17 Troponin T 0.099 ng/mL (0.00-0.029) H 06/17/18 20:00 Total Protein 6.9 g/dL (6.3-8.2) 06/18/18 04:17 Albumin 3.3 g/dL (3.9-5) L 06/18/18 04:17 Albumin/Globulin Ratio 0.9 % 06/18/18 04:17 Triglycerides 98 mg/dL (2-149) 06/17/18 10:07 Cholesterol 161 mg/dL (50-199) 06/17/18 10:07 LDL Cholesterol Direct 121 mg/dL (50-130) 06/17/18 10:07 HDL Cholesterol 38 mg/dL (40-59) L 06/17/18 10:07 Cholesterol/HDL Ratio 4.23 % 06/17/18 10:07 Urine Color Straw (Yellow) 06/18/18 06:30 Urine Turbidity Clear (Clear) 06/18/18 06:30 Urine pH 5.0 (5.0-7.0) 06/18/18 06:30 Ur Specific [place] 1.006 (1.003-1.030) 06/18/18 06:30 Urine Protein 100 mg/dl mg/dL (Negative) 06/18/18 06:30 Urine Glucose (UA) Neg mg/dL (Negative) 06/18/18 06:30 Urine Ketones Neg mg/dL (Negative) 06/18/18 06:30 Urine Blood Neg (Negative) 06/18/18 06:30 Urine Nitrite Neg (Negative) 06/18/18 06:30 Urine Bilirubin Neg (Negative) 06/18/18 06:30 Urine Urobilinogen < 2.0 mg/dL (<2.0) 06/18/18 06:30 Ur Leukocyte Esterase Neg (Negative) 06/18/18 06:30 Urine WBC (Auto) 2.0 /HPF (0.0-6.0) 06/18/18 06:30 Urine RBC (Auto) 5.0 /HPF (0.0-6.0) 06/18/18 06:30 Amorphous Crystals 1+ 06/18/18 06:30 Urine Mucus Few /HPF 06/18/18 06:30 Urine Eosinophils None seen (None Seen) 06/18/18 06:30 Urine Creatinine 80.8 mg/dL (0.1-20.0) H 06/18/18 06:30 Protein/Creatinin Ratio 3.17 06/18/18 06:30 Urine Sodium 63 mmol/L 06/18/18 06:30 Urine Urea Nitrogen 257 06/18/18 06:30 Urine Total Protein 256 mg/dL (5-11.8) H 06/18/18 06:30 Hep Bs Antigen Non-reactive (Negative) 06/19/18 16:00 Hepatitis C Antibody Non-reactive (NonReactive) 06/19/18 16:00 HIV 1&2 Antibody Rapid Non react (Non React) 06/19/18 16:00 HIV P24 Antigen Non react (Non React) 06/19/18 16:00
[2018-06-20] MEDS: SODIUM CHLORIDE FLUSH SYRINGE 10 ML IV SCH (10:00)
[2018-06-20] MEDS: PROCARDIA XL PO SCH (10:10)
[2018-06-20] MEDS: TOPROL XL PO SCH (10:10)
[2018-06-20] MEDS: IMDUR PO SCH (10:11)
--- NOTE | 2018-06-20 10:55 | Progress Note ---
Assessment and Plan Chronic renal failure COPD Systemic Hypertension Echo showing severe LVH, normal LVEF Possible infiltrative pattern MPI this admission - no ischemia Recommendations: BP control Consider initiation of HD Outpatient cardiac MRI and/or Tc-pyrophosphate scan to evaluate for cardiac sarcoid No further inpatient cardiac work-up is needed Subjective Date of service: 06/20/18 Principal diagnosis: chronic kidney disease Interval history: Patient denies chest pain or shortness of breath Objective Vital Signs Temp Pulse Resp BP BP Pulse Ox 06/20/18 09:02 20 134/68 06/20/18 09:01 98.3 F 103 H 20 134/88 94 06/20/18 05:42 96 H 159/83 06/20/18 00:39 98.2 F 96 H 18 117/63 91 06/19/18 22:10 94 H 119/75 06/19/18 21:23 92 H 06/19/18 20:21 97.9 F 92 H 18 119/75 92 06/19/18 18:14 96 H 131/69 06/19/18 17:42 98.1 F 06/19/18 17:41 96 H 20 131/69 96 06/19/18 13:30 20 06/19/18 12:35 98.0 F 95 H 20 172/97 92 - Physical Examination HEENT: Positive: PERRL, EOMI Neck: Positive: neck supple Cardiac: Positive: Reg Rate and Rhythm Lungs: Positive: Normal Exam Neuro: Positive: Grossly Intact Abdomen: Positive: Soft Skin: Positive: Clear Extremities: Absent: edema - Labs and Meds CBC 06/20/18 Range/Units 05:09 WBC 6.5 (4.5-11.0) K/mm3 RBC 3.45 L (3.65-5.03) M/mm3 Hgb 8.1 L (11.8-15.2) gm/dl Hct 26.7 L (35.5-45.6) % Plt Count 137 L (140-440) K/mm3 Lymph # 1.2 (1.2-5.4) K/mm3 Isabella # 0.8 (0.0-0.8) K/mm3 Eos # 0.1 (0.0-0.4) K/mm3 Baso # 0.0 (0.0-0.1) K/mm3 Comprehensive Metabolic Panel 06/20/18 Range/Units 05:09 Sodium 143 (137-145) mmol/L Potassium 4.3 (3.6-5.0) mmol/L Chloride 104.6 (98-107) mmol/L Carbon Dioxide 26 (22-30) mmol/L BUN 55 H (9-20) mg/dL Creatinine 11.6 H (0.8-1.5) mg/dL Glucose 106 H (75-100) mg/dL Calcium 8.7 (8.4-10.2) mg/dL - Imaging and Cardiology EKG: report reviewed
--- NOTE | 2018-06-20 12:34 | Progress Note ---
Assessment and Plan poss L renal mass get Ct without oposs mri may be a cyst nothing acute consult dictated Subjective Date of service: 06/20/18 Principal diagnosis: chronic kidney disease Objective - Constitutional Vitals: Vital Signs - 12hr 06/20/18 06/20/18 06/20/18 00:39 05:42 09:01 Temperature 98.2 F 98.3 F Pulse Rate 96 H 96 H 103 H Respiratory 18 20 Rate Blood Pressure 117/63 159/83 Blood Pressure 134/88 [Left] O2 Sat by Pulse 91 94 Oximetry 06/20/18 06/20/18 06/20/18 09:02 12:22 12:24 Temperature 97.9 F 97.9 F Pulse Rate 91 H Respiratory 20 18 Rate Blood Pressure 134/68 Blood Pressure 118/81 [Left] O2 Sat by Pulse 96 Oximetry General appearance: Present: no acute distress Extremities: no ischemia - Gastrointestinal General gastrointestinal: Present: non-tender - Labs CBC & Chem 7: 06/20/18 05:09 06/20/18 05:09 Labs: Abnormal lab results 06/20/18 06/20/18 Range/Units 05:09 05:09 RBC 3.45 L (3.65-5.03) M/mm3 Hgb 8.1 L (11.8-15.2) gm/dl Hct 26.7 L (35.5-45.6) % MCV 77 L (84-94) fl MCH 23 L (28-32) pg MCHC 30 L (32-34) % RDW 20.0 H (13.2-15.2) % Plt Count 137 L (140-440) K/mm3 [place] % (Auto) 11.8 H (0.0-7.3) % BUN 55 H (9-20) mg/dL Creatinine 11.6 H (0.8-1.5) mg/dL Glucose 106 H (75-100) mg/dL Phosphorus 6.60 H (2.5-4.5) mg/dL Medications & Allergies - Medications Allergies/Adverse Reactions: Allergies ibuprofen Allergy (Verified 06/17/18 09:52) Bleeding Home Medications: Home Medications Medication Instructions Recorded Confirmed Last Taken Type Hydralazine HCl 50 mg PO TID 06/17/18 06/17/18 06/16/18 History 50 ISOSORBIDE MONOnitrate [Imdur ER] 60 mg PO QDAY 06/17/18 06/17/18 06/16/18 History 60 Metoprolol Xl [Metoprolol 100 mg PO DAILY 06/17/18 06/17/18 06/16/18 History SUCCINATE ER TAB] 100 NIFEdipine [Nifedipine ER] 90 mg PO DAILY 06/17/18 06/17/18 06/16/18 History 90 Pantoprazole [Protonix] 40 mg PO QDAY 06/17/18 06/17/18 06/16/18 History 40 Active Medications: Generic Name Dose Route Start Last Admin Trade Name Freq PRN Reason Stop Dose Admin Acetaminophen 650 mg 06/17/18 19:19 Tylenol PO Q4H PRN Pain MILD(1-3)/Fever >100.5/VALDEZ Epoetin Jeison 10,000 unit 06/19/18 18:09 06/19/18 19:18 Procrit SUB-Q 10,000 unit MOWEFR VERNELL Administration Famotidine 20 mg 06/20/18 22:00 Pepcid PO DAILY VERNELL Furosemide 80 mg 06/18/18 18:00 06/20/18 05:43 Lasix IV 80 mg 0600,1800 VERNELL Administration Hydralazine HCl 50 mg 06/17/18 22:00 06/20/18 05:42 Apresoline PO 50 mg Q8HR VERNELL Administration Hydromorphone HCl 1 mg 06/17/18 19:19 Dilaudid IV Q3H PRN Pain , Severe (7-10) Isosorbide Mononitrate 60 mg 06/17/18 16:00 06/20/18 10:11 Imdur PO 60 mg QDAY VERNELL Administration Metoclopramide HCl 10 mg 06/18/18 13:47 06/18/18 14:05 Reglan IV 10 mg Q6H PRN Administration Nausea And Vomiting Metoprolol Succinate 100 mg 06/18/18 10:00 06/20/18 10:10 Toprol Xl PO 100 mg DAILY VERNELL Administration Nifedipine 90 mg 06/18/18 10:00 06/20/18 10:10 Procardia Xl PO 90 mg QDAY VERNELL Administration Ondansetron HCl 4 mg 06/17/18 19:19 06/19/18 09:38 Zofran IV 4 mg Q8H PRN Administration Nausea And Vomiting Oxycodone/Acetaminophen 1 tab 06/17/18 19:19 06/19/18 23:15 Percocet 5/325 PO 1 tab Q6H PRN Administration Pain, Moderate (4-6) Polyethylene Glycol 17 gm 06/18/18 17:10 06/18/18 18:23 Miralax 3350 PO 17 gm QDAY PRN Administration Constipation Promethazine HCl 25 mg 06/17/18 19:19 Phenergan [place] Q6H PRN N/V IF NPO AND NO IV ACCESS Sodium Chloride 10 ml 06/17/18 22:00 06/19/18 22:11 Sodium Chloride Flush Syringe 10 Ml IV 10 ml BID VERNELL Administration Sodium Chloride 10 ml 06/17/18 19:19 Sodium Chloride Flush Syringe 10 Ml IV PRN PRN LINE FLUSH
--- NOTE | 2018-06-20 13:29 | Progress Note ---
Assessment and Plan Assessment: Acute Kidney injury on top of CKD vs CKD progression Chest Pain Metabolic acidosis: Acute on chronic CHF Essential HTN: Hyperlipidemia, chronic: Anemia of chronic disease: Obesity: Plan -Cr worsening. Possibly ESRD now. Discussed R&B of HD with patient risks including hypotension, bleeding, infection, arrythmia, stroke. Also made aware of risks of not doing dialysis. Pt does not want dialysis at this time but will think about it. -CXR was congested. Diurese with lasix 80 mg BID IV -No hydronephrosis on renal US but possible solid mass, Urology consulted. - has nephrotic range proteinuria, secondary GN and vasculitis work up ordered -Renally dose all meds and avoid nephrotoxic meds -Avoid RAAS inhibitors for now -Titrate BP meds PRN -Monitor H&H, Started Epogen. Mukesh Lindsey MD [phone] Subjective Date of service: 06/20/18 Principal diagnosis: chronic kidney disease Interval history: Denies CP, SHOB. Family at bedside. Objective - Exam Narrative Exam: GE:AAOX3, HEENT:PERRLA Neck:Supple Chest:Coarse BS BL CVS:RRR Abd:Soft, BS+ Ext: 2+ BLE edema UG: No rodriguez Psyche:Appropriate mood - Vital Signs Vital signs: Vital Signs - 12hr 06/20/18 06/20/18 06/20/18 05:42 09:01 09:02 Temperature 98.3 F Pulse Rate 96 H 103 H Respiratory 20 20 Rate Blood Pressure 159/83 134/68 Blood Pressure 134/88 [Left] O2 Sat by Pulse 94 Oximetry 06/20/18 06/20/18 12:22 12:24 Temperature 97.9 F 97.9 F Pulse Rate 91 H Respiratory 18 Rate Blood Pressure Blood Pressure 118/81 [Left] O2 Sat by Pulse 96 Oximetry - Lab 06/20/18 05:09 06/20/18 05:09 Most recent lab results Calcium 8.7 mg/dL (8.4-10.2) 06/20/18 05:09 Phosphorus 6.60 mg/dL (2.5-4.5) H 06/20/18 05:09 Urine Creatinine 80.8 mg/dL (0.1-20.0) H 06/18/18 06:30 Urine Sodium 63 mmol/L 06/18/18 06:30 Urine Total Protein 256 mg/dL (5-11.8) H 06/18/18 06:30 Medications & Allergies - Medications Allergies/Adverse Reactions: Allergies ibuprofen Allergy (Verified 06/17/18 09:52) Bleeding Home Medications: Home Medications Medication Instructions Recorded Confirmed Last Taken Type Hydralazine HCl 50 mg PO TID 06/17/18 06/17/18 06/16/18 History 50 ISOSORBIDE MONOnitrate [Imdur ER] 60 mg PO QDAY 06/17/18 06/17/18 06/16/18 History 60 Metoprolol Xl [Metoprolol 100 mg PO DAILY 06/17/18 06/17/18 06/16/18 History SUCCINATE ER TAB] 100 NIFEdipine [Nifedipine ER] 90 mg PO DAILY 06/17/18 06/17/18 06/16/18 History 90 Pantoprazole [Protonix] 40 mg PO QDAY 06/17/18 06/17/18 06/16/18 History 40 Active Medications: Generic Name Dose Route Start Last Admin Trade Name Freq PRN Reason Stop Dose Admin Acetaminophen 650 mg 06/17/18 19:19 Tylenol PO Q4H PRN Pain MILD(1-3)/Fever >100.5/VALDEZ Epoetin Jeison 10,000 unit 06/19/18 18:09 06/19/18 19:18 Procrit SUB-Q 10,000 unit MOWEFR VERNELL Administration Famotidine 20 mg 06/20/18 22:00 Pepcid PO DAILY VERNELL Furosemide 80 mg 06/18/18 18:00 06/20/18 05:43 Lasix IV 80 mg 0600,1800 VERNELL Administration Hydralazine HCl 50 mg 06/17/18 22:00 06/20/18 05:42 Apresoline PO 50 mg Q8HR VERNELL Administration Hydromorphone HCl 1 mg 06/17/18 19:19 Dilaudid IV Q3H PRN Pain , Severe (7-10) Isosorbide Mononitrate 60 mg 06/17/18 16:00 06/20/18 10:11 Imdur PO 60 mg QDAY VERNELL Administration Metoclopramide HCl 10 mg 06/18/18 13:47 06/18/18 14:05 Reglan IV 10 mg Q6H PRN Administration Nausea And Vomiting Metoprolol Succinate 100 mg 06/18/18 10:00 06/20/18 10:10 Toprol Xl PO 100 mg DAILY VERNELL Administration Nifedipine 90 mg 06/18/18 10:00 06/20/18 10:10 Procardia Xl PO 90 mg QDAY VERNELL Administration Ondansetron HCl 4 mg 06/17/18 19:19 06/19/18 09:38 Zofran IV 4 mg Q8H PRN Administration Nausea And Vomiting Oxycodone/Acetaminophen 1 tab 06/17/18 19:19 06/19/18 23:15 Percocet 5/325 PO 1 tab Q6H PRN Administration Pain, Moderate (4-6) Polyethylene Glycol 17 gm 06/18/18 17:10 06/18/18 18:23 Miralax 3350 PO 17 gm QDAY PRN Administration Constipation Promethazine HCl 25 mg 06/17/18 19:19 Phenergan [place] Q6H PRN N/V IF NPO AND NO IV ACCESS Sodium Chloride 10 ml 06/17/18 22:00 06/19/18 22:11 Sodium Chloride Flush Syringe 10 Ml IV 10 ml BID VERNELL Administration Sodium Chloride 10 ml 06/17/18 19:19 Sodium Chloride Flush Syringe 10 Ml IV PRN PRN LINE FLUSH
--- NOTE | 2018-06-20 13:33 | Consultation ---
HISTORY OF PRESENT ILLNESS: The patient is a 38-year-old gentleman, who is morbidly obese, who presented with hypertension and renal failure. He is on multiple medications for blood pressure including metoprolol, nifedipine, nitroglycerin, and hydralazine. He has creatinine of 11. He has no hydronephrosis, questionable hypoechoic mass, left lateral kidney. He has never had manipulation. He had previous Trichomonas. He is moderately anemic and has severe erectile dysfunction. He has no difficulty with flow, but he has some mild polyuria. PAST MEDICAL HISTORY: As mentioned above including congestive heart failure and depression. MEDICATIONS: As mentioned above. SOCIAL HISTORY: Negative. FAMILY HISTORY: Hypertension. REVIEW OF SYSTEMS: Significant weight gain and erectile dysfunction. PHYSICAL EXAMINATION: GENERAL: He is awake. He is in no distress. ABDOMEN: Protuberant, soft, and nondistended. No CVA tenderness. GENITALIA: Testes descended bilaterally, circumcised. No hernias. IMPRESSION AND PLAN: Possible left renal mass. We will get a CT scan without contrast, possible MRI. I suspect this is more of a cyst, chronic renal insufficiency, and no acute genitourinary problem. At this point, he needs to be followed up as an outpatient. Limited use of oral medications for erectile dysfunction because of nitroglycerin. He may be a candidate for an implant or for injections and/or vacuum device. JOB# [id number] KATHRYN/OSIEL
--- NOTE | 2018-06-20 14:41 | Cat Scan Report ---
FINAL REPORT EXAM: CT ABDOMEN WO CON HISTORY: l renal mass TECHNIQUE: CT of the abdomen was performed without intravenous contrast. Reconstructions were included in the coronal and sagittal planes. PRIORS: Renal ultrasound from 06/18/2018. FINDINGS: Lower thorax: The lung bases are clear. The visualized portions of the heart are normal. Liver: The liver is normal in attenuation. No intrahepatic biliary duct dilation. No focal hepatic le sions. Gallbladder/ biliary system: No cholelithiasis. The common bile duct appears nondilated. Spleen: No splenic lesions are seen. Pancreas: No pancreatic lesions are seen. No pancreatic duct dilation. Kidneys: There is a nonspecific hyper attenuating left renal lesion measuring 2.9 x 2.4 centimeters. No hydronephrosis. No renal or ureteral calcifications. Adrenal glands: No adrenal masses. Vasculature: The abdominal aorta is nondilated. Lymph nodes: No enlarged lymph nodes are seen in the abdomen. Bowel, mesentery, peritoneum: No bowel obstruction. No free fluid or free air. The appendix is normal . No colonic diverticulosis. No bowel wall thickening. There is a large hiatal hernia containing most of the stomach. Abdominal wall: No abdominal wall hernia or other subcutaneous findings. Bones: Diffuse sclerotic appearance of the bones may be related to chronic renal disease. IMPRESSION: 1. Nonspecific left renal lesion likely represents a proteinaceous or hemorrhagic cyst. Further evalu ation with multiphasic renal CT or MRI is necessary for definitive characterization. Solid renal neop lasm is not completely excluded on the basis of this study. 2. Large hiatal hernia containing most of the stomach.
[2018-06-20] MEDS: PERCOCET 5/325 PO PRN ×2 (14:43→21:10)
[2018-06-20] MEDS: PEPCID PO SCH (21:06)
[2018-06-21] MEDS: APRESOLINE PO SCH ×3 (05:00→21:15)
[2018-06-21] MEDS: LASIX IV SCH ×2 (05:00→17:32)
[2018-06-21] MEDS: SODIUM CHLORIDE FLUSH SYRINGE 10 ML IV SCH ×3 (05:23→21:16)
[2018-06-21 06:31] LABS: Basophils % (Auto) 0.7 % (0.0-1.8); Eosinophils # (Auto) 0.1 K/mm3 (0.0-0.4); Eosinophils % (Auto) 1.8 % (0.0-4.3); Hematocrit 28.5 % (35.5-45.6); Hemoglobin 8.8 gm/dl (11.8-15.2); Lymphocytes # (Auto) 1.3 K/mm3 (1.2-5.4); Lymphocytes % (Auto) 23.1 % (13.4-35.0); Mean Corpuscular HGB Conc 31 % (32-34); Mean Corpuscular Volume 77 fl (84-94); Monocytes # (Auto) 0.8 K/mm3 (0.0-0.8); Monocytes % (Auto) 14.8 % (0.0-7.3); Platelet Count 142 K/mm3 (140-440); Red Blood Count 3.69 M/mm3 (3.65-5.03); Red Cell Distribution Width 19.4 % (13.2-15.2)
[2018-06-21 07:07] LABS: Calcium 8.7 mg/dL (8.4-10.2)
[2018-06-21] MEDS: PROCARDIA XL PO SCH (09:33)
[2018-06-21] MEDS: PEPCID PO SCH (09:34)
[2018-06-21] MEDS: IMDUR PO SCH (09:34)
[2018-06-21] MEDS: TOPROL XL PO SCH (09:46)
--- NOTE | 2018-06-21 10:56 | Progress Note ---
Assessment and Plan Chronic renal failure Nephrotic range proteinuria COPD Systemic Hypertension Echo showing severe LVH, normal LVEF Possible infiltrative pattern MPI this admission - no ischemia Recommendations: BP control Consider initiation of HD Outpatient cardiac MRI and/or Tc-pyrophosphate scan to evaluate for cardiac amyloid Check SPEP and UPEP while in the hospital No further inpatient cardiac work-up is needed Subjective Date of service: 06/21/18 Principal diagnosis: chronic kidney disease Interval history: No events overnight Objective Vital Signs Temp Pulse Resp BP BP Pulse Ox 06/21/18 09:46 93 H 149/97 06/21/18 09:34 93 H 149/97 06/21/18 05:13 98.4 F 93 H 18 149/97 91 06/21/18 05:00 94 H 149/97 06/20/18 22:58 98.9 F 98 H 18 109/72 90 06/20/18 22:00 98 H 06/20/18 21:06 99 H 127/78 06/20/18 20:42 98.5 F 99 H 18 127/78 93 06/20/18 15:05 98.2 F 93 H 06/20/18 15:03 130 H 18 128/84 94 06/20/18 12:24 97.9 F 91 H 18 118/81 96 06/20/18 12:22 97.9 F - Physical Examination HEENT: Positive: PERRL, EOMI Neck: Positive: neck supple Cardiac: Positive: Reg Rate and Rhythm Lungs: Positive: Normal Exam Neuro: Positive: Grossly Intact Abdomen: Positive: Soft Skin: Positive: Clear Extremities: Absent: edema - Labs and Meds CBC 06/21/18 Range/Units 06:05 WBC 5.6 (4.5-11.0) K/mm3 RBC 3.69 (3.65-5.03) M/mm3 Hgb 8.8 L (11.8-15.2) gm/dl Hct 28.5 L (35.5-45.6) % Plt Count 142 (140-440) K/mm3 Lymph # 1.3 (1.2-5.4) K/mm3 [place] # 0.8 (0.0-0.8) K/mm3 Eos # 0.1 (0.0-0.4) K/mm3 Baso # 0.0 (0.0-0.1) K/mm3 Comprehensive Metabolic Panel 06/21/18 Range/Units 06:05 Sodium 143 (137-145) mmol/L Potassium 3.7 (3.6-5.0) mmol/L Chloride 102.7 (98-107) mmol/L Carbon Dioxide 24 (22-30) mmol/L BUN 56 H (9-20) mg/dL Creatinine 11.2 H (0.8-1.5) mg/dL Glucose 104 H (75-100) mg/dL Calcium 8.7 (8.4-10.2) mg/dL - Imaging and Cardiology EKG: report reviewed
--- NOTE | 2018-06-21 11:15 | Progress Note ---
Assessment and Plan ESRD not on HD Chest Pain Metabolic acidosis: Acute on chronic CHF Essential HTN: Hyperlipidemia, chronic: Anemia of chronic disease: Obesity: Plan -agreeable with HD, vascular consult placed for permcath. discussed with case management re outpatient dilaysis placement -cont lasix 80 mg BID IV -No hydronephrosis on renal US but possible solid mass, Urology consulted. - has nephrotic range proteinuria, secondary GN and vasculitis work up ordered, pending -Renally dose all meds and avoid nephrotoxic meds -Avoid RAAS inhibitors for now -Titrate BP meds PRN -Monitor H&H, Started Epogen. Subjective Date of service: 06/21/18 Principal diagnosis: chronic kidney disease Interval history: the patient is agreeable to HD. Objective - Vital Signs Vital signs: Vital Signs - 12hr 06/21/18 06/21/18 06/21/18 05:00 05:13 09:34 Temperature 98.4 F Pulse Rate 94 H 93 H 93 H Respiratory 18 Rate Blood Pressure 149/97 149/97 149/97 O2 Sat by Pulse 91 Oximetry 06/21/18 09:46 Temperature Pulse Rate 93 H Respiratory Rate Blood Pressure 149/97 O2 Sat by Pulse Oximetry - General Appearance General appearance: well-developed, well-nourished, appears stated age EENT: ATNC, PERRL, mucous membranes moist Neck: no JVD, no carotid bruit Respiratory: Present: Decreased Breath Sounds. Absent: Rales, Ronchi Cardiology: regular, S1S2 Gastrointestinal: normoactive bowel sounds, no tenderness, no distended Integumentary: no rash, warm and dry Neurologic: no focal deficit, no asterixis, alert and oriented x3 Musculoskeletal: other (trace pitting edema in BLE) Psychiatric: mood/affect appropriate, cooperative - Lab 06/21/18 06:05 06/21/18 06:05 Most recent lab results Calcium 8.7 mg/dL (8.4-10.2) 06/21/18 06:05 Phosphorus 6.40 mg/dL (2.5-4.5) H 06/21/18 06:05 Urine Creatinine 54.1 mg/dL (0.1-20.0) H 06/21/18 05:30 Urine Sodium 63 mmol/L 06/18/18 06:30 Urine Total Protein 256 mg/dL (5-11.8) H 06/18/18 06:30 Medications & Allergies - Medications Allergies/Adverse Reactions: Allergies ibuprofen Allergy (Verified 06/17/18 09:52) Bleeding Home Medications: Home Medications Medication Instructions Recorded Confirmed Last Taken Type Hydralazine HCl 50 mg PO TID 06/17/18 06/17/18 06/16/18 History 50 ISOSORBIDE MONOnitrate [Imdur ER] 60 mg PO QDAY 06/17/18 06/17/18 06/16/18 History 60 Metoprolol Xl [Metoprolol 100 mg PO DAILY 06/17/18 06/17/18 06/16/18 History SUCCINATE ER TAB] 100 NIFEdipine [Nifedipine ER] 90 mg PO DAILY 06/17/18 06/17/18 06/16/18 History 90 Pantoprazole [Protonix] 40 mg PO QDAY 06/17/18 06/17/18 06/16/18 History 40 Active Medications: Generic Name Dose Route Start Last Admin Trade Name Freq PRN Reason Stop Dose Admin Acetaminophen 650 mg 06/17/18 19:19 Tylenol PO Q4H PRN Pain MILD(1-3)/Fever >100.5/VALDEZ Epoetin Jeison 10,000 unit 06/19/18 18:09 06/19/18 19:18 Procrit SUB-Q 10,000 unit MOWEFR VERNELL Administration Famotidine 20 mg 06/20/18 22:00 06/21/18 09:34 Pepcid PO 20 mg DAILY VERNELL Administration Furosemide 80 mg 06/18/18 18:00 06/21/18 05:00 Lasix IV 80 mg 0600,1800 VERNELL Administration Hydralazine HCl 50 mg 06/17/18 22:00 06/21/18 05:00 Apresoline PO 50 mg Q8HR VERNELL Administration Hydromorphone HCl 1 mg 06/17/18 19:19 Dilaudid IV Q3H PRN Pain , Severe (7-10) Isosorbide Mononitrate 60 mg 06/17/18 16:00 06/21/18 09:34 Imdur PO 60 mg QDAY VERNELL Administration Metoclopramide HCl 10 mg 06/18/18 13:47 06/18/18 14:05 Reglan IV 10 mg Q6H PRN Administration Nausea And Vomiting Metoprolol Succinate 100 mg 06/18/18 10:00 06/21/18 09:46 Toprol Xl PO 100 mg DAILY VERNELL Administration Nifedipine 90 mg 06/18/18 10:00 06/21/18 09:33 Procardia Xl PO 90 mg QDAY VERNELL Administration Ondansetron HCl 4 mg 06/17/18 19:19 06/19/18 09:38 Zofran IV 4 mg Q8H PRN Administration Nausea And Vomiting Oxycodone/Acetaminophen 1 tab 06/17/18 19:19 06/20/18 21:10 Percocet 5/325 PO 1 tab Q6H PRN Administration Pain, Moderate (4-6) Polyethylene Glycol 17 gm 06/18/18 17:10 06/18/18 18:23 Miralax 3350 PO 17 gm QDAY PRN Administration Constipation Promethazine HCl 25 mg 06/17/18 19:19 Phenergan [place] Q6H PRN N/V IF NPO AND NO IV ACCESS Sodium Chloride 10 ml 06/17/18 22:00 06/21/18 09:35 Sodium Chloride Flush Syringe 10 Ml IV 10 ml BID VERNELL Administration Sodium Chloride 10 ml 06/17/18 19:19 Sodium Chloride Flush Syringe 10 Ml IV PRN PRN LINE FLUSH
--- NOTE | 2018-06-21 13:03 | Progress Note ---
Assessment and Plan Assessment and plan: Patient is 38 yo man with a history of hypertension, depression, CHF, CKD 4 not on hemodialysis and gerd who presented with chest pains. * 06/19/18 2D ECHO: The left ventricular chamber size is normal. Severe concentric LVH. The myocardium has a granular appearance on echo raising the suspicion of infiltrative cardiomyopathy. Global left ventricular systolic function appears hyperdynamic, estimated EF 70-75%, abnormal left ventricular diastolic filling, c/w impaired relaxation, right ventricle wall thickness is moderately increased, right ventricle is mildly dilated, moderate AR, RVSP 48 mmHg, trivial pericardial effusion -Hypertensive malignancy with urgency with Initial BPs very high, 204/136 and 229/155, PO HYudralazine Metoprolol and Nifedipine initiated, IV Hydralazine and IV Labetolol initiated, -Elevated troponins with chest pains, Acute coronary syndrome unlikely: d/w Cardiology -ARF/CKD 5, ATN and Vasomotor nephrology, poa, not on hemodialysis, Cr steady today at 11.2, was 11.6 yesterday: d/w Nephrology, Renal u/s reviewed -GERD (gastroesophageal reflux disease): h2 christianne, d/c ppi due to renal failure -AOCD: monitor cbc -DVT prophylaxis: On Heparin and GI prophylaxis -Morbid obesity, bmi 40.9: senior counsel commercial on weight reduction -Non-compliance: Counseled about compliance Disposition: continue inpatient care, anticipate discharge once Cr plateau and cleared by nephrology d/w his mother over the phone per his request to start HD, History Interval history: Patient was seen and examined. Follow-up on current diagnosis of chest pains. Overnight uneventful. Patient denies any shortness breath, nausea/vomiting or severe headaches. Imaging, nursing note, chart, labs and old chart reviewed. Discussed with patient. and stepson at bedside. Hospitalist Physical - Physical exam Narrative exam: Gen: WDWN, NAD, Awake, Alert, Orientated x 3, bmi 40.9 HEENT: NCAT, EOMI, PERRL, OP Clear Neck: supple, no adenopathy, no thyromegaly, no JVD CVS/Heart: Reg bradycardia, normal S1S2, pulses present bilaterally Chest/Lungs: diminished, Symmetrical chest expansion, good air entry bilaterally GI/Abdomen: soft, NTND, good bowel sounds, no guarding or rebound /Bladder: no suprapubic tenderness, no CVA or paraspinal tenderness Extermity/Skin: bilateral leg edema, no obvious rash MSK: FROM x 4 Neuro: CN 2-12 grossly intact, no new focal deficits Psych: calm - Constitutional Vitals: Temp Pulse Resp BP Pulse Ox 98.4 F 93 H 18 149/97 99 06/21/18 05:13 06/21/18 10:00 06/21/18 10:00 06/21/18 09:46 06/21/18 10:00 General appearance: Present: no acute distress Results - Labs CBC & Chem 7: 06/21/18 06:05 06/21/18 06:05 Labs: Laboratory Last Values WBC 5.6 K/mm3 (4.5-11.0) 06/21/18 06:05 RBC 3.69 M/mm3 (3.65-5.03) 06/21/18 06:05 Hgb 8.8 gm/dl (11.8-15.2) L 06/21/18 06:05 Hct 28.5 % (35.5-45.6) L 06/21/18 06:05 MCV 77 fl (84-94) L 06/21/18 06:05 MCH 24 pg (28-32) L 06/21/18 06:05 MCHC 31 % (32-34) L 06/21/18 06:05 RDW 19.4 % (13.2-15.2) H 06/21/18 06:05 Plt Count 142 K/mm3 (140-440) 06/21/18 06:05 Lymph % (Auto) 23.1 % (13.4-35.0) 06/21/18 06:05 [place] % (Auto) 14.8 % (0.0-7.3) H 06/21/18 06:05 Eos % (Auto) 1.8 % (0.0-4.3) 06/21/18 06:05 Baso % (Auto) 0.7 % (0.0-1.8) 06/21/18 06:05 Lymph # 1.3 K/mm3 (1.2-5.4) 06/21/18 06:05 [place] # 0.8 K/mm3 (0.0-0.8) 06/21/18 06:05 Eos # 0.1 K/mm3 (0.0-0.4) 06/21/18 06:05 Baso # 0.0 K/mm3 (0.0-0.1) 06/21/18 06:05 Seg Neutrophils % 59.6 % (40.0-70.0) 06/21/18 06:05 Seg Neutrophils # 3.3 K/mm3 (1.8-7.7) 06/21/18 06:05 Sodium 143 mmol/L (137-145) 06/21/18 06:05 Potassium 3.7 mmol/L (3.6-5.0) 06/21/18 06:05 Chloride 102.7 mmol/L (98-107) 06/21/18 06:05 Carbon Dioxide 24 mmol/L (22-30) 06/21/18 06:05 Anion Gap 20 mmol/L 06/21/18 06:05 BUN 56 mg/dL (9-20) H 06/21/18 06:05 Creatinine 11.2 mg/dL (0.8-1.5) H 06/21/18 06:05 Estimated GFR 6 ml/min 06/21/18 06:05 BUN/Creatinine Ratio 5 % 06/21/18 06:05 Glucose 104 mg/dL (75-100) H 06/21/18 06:05 Hemoglobin A1c < 4.2 % (4-6) 06/17/18 19:24 Calcium 8.7 mg/dL (8.4-10.2) 06/21/18 06:05 Phosphorus 6.40 mg/dL (2.5-4.5) H 06/21/18 06:05 Total Bilirubin 0.20 mg/dL (0.1-1.2) 06/18/18 04:17 AST 13 units/L (5-40) 06/18/18 04:17 ALT 12 units/L (7-56) 06/18/18 04:17 Alkaline Phosphatase 71 units/L (35-129) 06/18/18 04:17 Troponin T 0.099 ng/mL (0.00-0.029) H 06/17/18 20:00 Total Protein 6.9 g/dL (6.3-8.2) 06/18/18 04:17 Albumin 3.3 g/dL (3.9-5) L 06/18/18 04:17 Albumin/Globulin Ratio 0.9 % 06/18/18 04:17 Triglycerides 98 mg/dL (2-149) 06/17/18 10:07 Cholesterol 161 mg/dL (50-199) 06/17/18 10:07 LDL Cholesterol Direct 121 mg/dL (50-130) 06/17/18 10:07 HDL Cholesterol 38 mg/dL (40-59) L 06/17/18 10:07 Cholesterol/HDL Ratio 4.23 % 06/17/18 10:07 Urine Color Straw (Yellow) 06/18/18 06:30 Urine Turbidity Clear (Clear) 06/18/18 06:30 Urine pH 5.0 (5.0-7.0) 06/18/18 06:30 Ur Specific [place] 1.006 (1.003-1.030) 06/18/18 06:30 Urine Protein 100 mg/dl mg/dL (Negative) 06/18/18 06:30 Urine Glucose (UA) Neg mg/dL (Negative) 06/18/18 06:30 Urine Ketones Neg mg/dL (Negative) 06/18/18 06:30 Urine Blood Neg (Negative) 06/18/18 06:30 Urine Nitrite Neg (Negative) 06/18/18 06:30 Urine Bilirubin Neg (Negative) 06/18/18 06:30 Urine Urobilinogen < 2.0 mg/dL (<2.0) 06/18/18 06:30 Ur Leukocyte Esterase Neg (Negative) 06/18/18 06:30 Urine WBC (Auto) 2.0 /HPF (0.0-6.0) 06/18/18 06:30 Urine RBC (Auto) 5.0 /HPF (0.0-6.0) 06/18/18 06:30 Amorphous Crystals 1+ 06/18/18 06:30 Urine Mucus Few /HPF 06/18/18 06:30 Urine Eosinophils None seen (None Seen) 06/18/18 06:30 Urine Creatinine 54.1 mg/dL (0.1-20.0) H 06/21/18 05:30 Protein/Creatinin Ratio 3.17 06/18/18 06:30 Urine Sodium 63 mmol/L 06/18/18 06:30 Urine Urea Nitrogen 257 06/18/18 06:30 Urine Total Protein 256 mg/dL (5-11.8) H 06/18/18 06:30 Hep Bs Antigen Non-reactive (Negative) 06/19/18 16:00 Hepatitis C Antibody Non-reactive (NonReactive) 06/19/18 16:00 HIV 1&2 Antibody Rapid Non react (Non React) 06/19/18 16:00 HIV P24 Antigen Non react (Non React) 06/19/18 16:00
--- NOTE | 2018-06-21 14:50 | Progress Note ---
Assessment and Plan renal mass likely ctyst all discussed needs f/u as out pt Subjective Date of service: 06/21/18 Principal diagnosis: chronic kidney disease Objective - Constitutional Vitals: Vital Signs - 12hr 06/21/18 06/21/18 06/21/18 05:00 05:13 09:34 Temperature 98.4 F Pulse Rate 94 H 93 H 93 H Pulse Rate [ Apical] Pulse Rate [ Left Dorsalis Pedis] Pulse Rate [ Left Radial] Pulse Rate [ Right Dorsalis Pedis] Pulse Rate [ Right Radial] Respiratory 18 Rate Blood Pressure 149/97 149/97 149/97 O2 Sat by Pulse 91 Oximetry 06/21/18 06/21/18 06/21/18 09:46 10:00 14:00 Temperature Pulse Rate 93 H 106 H Pulse Rate [ 93 H Apical] Pulse Rate [ 93 H Left Dorsalis Pedis] Pulse Rate [ 93 H Left Radial] Pulse Rate [ 93 H Right Dorsalis Pedis] Pulse Rate [ 93 H Right Radial] Respiratory 18 Rate Blood Pressure 149/97 O2 Sat by Pulse 99 Oximetry 06/21/18 14:25 Temperature Pulse Rate 90 Pulse Rate [ Apical] Pulse Rate [ Left Dorsalis Pedis] Pulse Rate [ Left Radial] Pulse Rate [ Right Dorsalis Pedis] Pulse Rate [ Right Radial] Respiratory Rate Blood Pressure 120/90 O2 Sat by Pulse Oximetry General appearance: Present: no acute distress - Labs CBC & Chem 7: 06/21/18 06:05 06/21/18 06:05 Labs: Abnormal lab results 06/21/18 06/21/18 06/21/18 Range/Units 05:30 06:05 06:05 Hgb 8.8 L (11.8-15.2) gm/dl Hct 28.5 L (35.5-45.6) % MCV 77 L (84-94) fl MCH 24 L (28-32) pg MCHC 31 L (32-34) % RDW 19.4 H (13.2-15.2) % [place] % (Auto) 14.8 H (0.0-7.3) % BUN 56 H (9-20) mg/dL Creatinine 11.2 H (0.8-1.5) mg/dL Glucose 104 H (75-100) mg/dL Phosphorus 6.40 H (2.5-4.5) mg/dL Urine Creatinine 54.1 H (0.1-20.0) mg/dL Medications & Allergies - Medications Allergies/Adverse Reactions: Allergies ibuprofen Allergy (Verified 06/17/18 09:52) Bleeding Home Medications: Home Medications Medication Instructions Recorded Confirmed Last Taken Type Hydralazine HCl 50 mg PO TID 06/17/18 06/17/18 06/16/18 History 50 ISOSORBIDE MONOnitrate [Imdur ER] 60 mg PO QDAY 06/17/18 06/17/18 06/16/18 History 60 Metoprolol Xl [Metoprolol 100 mg PO DAILY 06/17/18 06/17/18 06/16/18 History SUCCINATE ER TAB] 100 NIFEdipine [Nifedipine ER] 90 mg PO DAILY 06/17/18 06/17/18 06/16/18 History 90 Pantoprazole [Protonix] 40 mg PO QDAY 06/17/18 06/17/18 06/16/18 History 40 Active Medications: Generic Name Dose Route Start Last Admin Trade Name Freq PRN Reason Stop Dose Admin Acetaminophen 650 mg 06/17/18 19:19 Tylenol PO Q4H PRN Pain MILD(1-3)/Fever >100.5/VALDEZ Epoetin Jeison 10,000 unit 06/19/18 18:09 06/19/18 19:18 Procrit SUB-Q 10,000 unit MOWEFR VERNELL Administration Famotidine 20 mg 06/20/18 22:00 06/21/18 09:34 Pepcid PO 20 mg DAILY VERNELL Administration Furosemide 80 mg 06/18/18 18:00 06/21/18 05:00 Lasix IV 80 mg 0600,1800 VERNELL Administration Hydralazine HCl 50 mg 06/17/18 22:00 06/21/18 14:25 Apresoline PO 50 mg Q8HR VERNELL Administration Hydromorphone HCl 1 mg 06/17/18 19:19 Dilaudid IV Q3H PRN Pain , Severe (7-10) Isosorbide Mononitrate 60 mg 06/17/18 16:00 06/21/18 09:34 Imdur PO 60 mg QDAY VERNELL Administration Metoclopramide HCl 10 mg 06/18/18 13:47 06/18/18 14:05 Reglan IV 10 mg Q6H PRN Administration Nausea And Vomiting Metoprolol Succinate 100 mg 06/18/18 10:00 06/21/18 09:46 Toprol Xl PO 100 mg DAILY VERNELL Administration Nifedipine 90 mg 06/18/18 10:00 06/21/18 09:33 Procardia Xl PO 90 mg QDAY VERNELL Administration Ondansetron HCl 4 mg 06/17/18 19:19 06/19/18 09:38 Zofran IV 4 mg Q8H PRN Administration Nausea And Vomiting Oxycodone/Acetaminophen 1 tab 06/17/18 19:19 06/20/18 21:10 Percocet 5/325 PO 1 tab Q6H PRN Administration Pain, Moderate (4-6) Polyethylene Glycol 17 gm 06/18/18 17:10 06/18/18 18:23 Miralax 3350 PO 17 gm QDAY PRN Administration Constipation Promethazine HCl 25 mg 06/17/18 19:19 Phenergan VT Q6H PRN N/V IF NPO AND NO IV ACCESS Sodium Chloride 10 ml 06/17/18 22:00 06/21/18 09:35 Sodium Chloride Flush Syringe 10 Ml IV 10 ml BID VERNELL Administration Sodium Chloride 10 ml 06/17/18 19:19 Sodium Chloride Flush Syringe 10 Ml IV PRN PRN LINE FLUSH
--- NOTE | 2018-06-21 15:59 | Consultation ---
History of Present Illness - Reason for Consult Consult date: 06/21/18 Evaluation for Hemodialysis Access Requesting physician: ABIOLA GERMAIN - History of Present Illness This patient is a 38-year-old -I[place] male that was admitted via the emergency room on 06/17/2018 due to chest pain. This has since improved. Cardiology in addition to nephrology have been consulted. The patient was felt to have acute on chronic kidney disease. It was recommended that he be initiated on hemodialysis. The patient was initially resistant to the idea, but has since agreed. A vascular surgery consult has been requested to evaluate for permacath placement. The patient is right-hand dominant. Past History Past Medical History: hypertension, renal failure Past Surgical History: Other (EGD, colonoscopy, vasectomy) Social history: . denies: smoking (remote history of tobacco use) Family history: other (renal failure) Medications and Allergies Allergies Allergy/AdvReac Type Severity Reaction Status Date / Time ibuprofen Allergy Bleeding Verified 06/17/18 09:52 Home Medications Medication Instructions Recorded Confirmed Last Taken Type Hydralazine HCl 50 mg PO TID 06/17/18 06/17/18 06/16/18 History 50 ISOSORBIDE MONOnitrate [Imdur ER] 60 mg PO QDAY 06/17/18 06/17/18 06/16/18 History 60 Metoprolol Xl [Metoprolol 100 mg PO DAILY 06/17/18 06/17/18 06/16/18 History SUCCINATE ER TAB] 100 NIFEdipine [Nifedipine ER] 90 mg PO DAILY 06/17/18 06/17/18 06/16/18 History 90 Pantoprazole [Protonix] 40 mg PO QDAY 06/17/18 06/17/18 06/16/18 History 40 Active Meds: Active Medications Acetaminophen (Tylenol) 650 mg PO Q4H PRN PRN Reason: Pain MILD(1-3)/Fever >100.5/VALDEZ Epoetin Je[place] (Procrit) 10,000 unit SUB-Q MOWEFR [facility] Last Admin: 06/19/18 19:18 Dose: 10,000 unit Documented by: Famotidine (Pepcid) 20 mg PO DAILY [facility] Last Admin: 06/21/18 09:34 Dose: 20 mg Documented by: Furosemide (Lasix) 80 mg IV 0600,1800 [facility] Last Admin: 06/21/18 05:00 Dose: 80 mg Documented by: Hydralazine HCl (Apresoline) 50 mg PO Q8HR [facility] Last Admin: 06/21/18 14:25 Dose: 50 mg Documented by: Hydromorphone HCl (Dilaudid) 1 mg IV Q3H PRN PRN Reason: Pain , Severe (7-10) Isosorbide Mononitrate (Imdur) 60 mg PO QDAY [facility] Last Admin: 06/21/18 09:34 Dose: 60 mg Documented by: Metoclopramide HCl (Reglan) 10 mg IV Q6H PRN PRN Reason: Nausea And Vomiting Last Admin: 06/18/18 14:05 Dose: 10 mg Documented by: Metoprolol Succinate (Toprol Xl) 100 mg PO DAILY [facility] Last Admin: 06/21/18 09:46 Dose: 100 mg Documented by: Nifedipine (Procardia Xl) 90 mg PO QDAY [facility] Last Admin: 06/21/18 09:33 Dose: 90 mg Documented by: Ondansetron HCl (Zofran) 4 mg IV Q8H PRN PRN Reason: Nausea And Vomiting Last Admin: 06/19/18 09:38 Dose: 4 mg Documented by: Oxycodone/Acetaminophen (Percocet 5/325) 1 tab PO Q6H PRN PRN Reason: Pain, Moderate (4-6) Last Admin: 06/20/18 21:10 Dose: 1 tab Documented by: Polyethylene Glycol (Miralax 3350) 17 gm PO QDAY PRN PRN Reason: Constipation Last Admin: 06/18/18 18:23 Dose: 17 gm Documented by: Promethazine HCl (Phenergan) 25 mg HI Q6H PRN PRN Reason: N/V IF NPO AND NO IV ACCESS Sodium Chloride (Sodium Chloride Flush Syringe 10 Ml) 10 ml IV BID [facility] Last Admin: 06/21/18 09:35 Dose: 10 ml Documented by: Sodium Chloride (Sodium Chloride Flush Syringe 10 Ml) 10 ml IV PRN PRN PRN Reason: LINE FLUSH Review of Systems All systems: negative Exam - Constitutional Vitals: Temp Pulse Resp BP Pulse Ox 98.7 F 90 16 125/82 95 06/21/18 15:51 06/21/18 15:51 06/21/18 15:51 06/21/18 15:51 06/21/18 15:51 General appearance: Present: obese - EENT Eyes: Present: EOM intact ENT: hearing intact - Neck Neck: Present: supple - Respiratory Respiratory effort: normal - Cardiovascular Rhythm: regular - Extremities Extremities: no ischemia - Psychiatric Psychiatric: appropriate mood/affect, intact judgment & insight, cooperative - Neurologic Neurologic: no focal deficits Results - Labs CBC & Chem 7: 06/21/18 06:05 06/21/18 06:05 Labs: Abnormal lab results 06/21/18 06/21/18 06/21/18 Range/Units 05:30 06:05 06:05 Hgb 8.8 L (11.8-15.2) gm/dl Hct 28.5 L (35.5-45.6) % MCV 77 L (84-94) fl MCH 24 L (28-32) pg MCHC 31 L (32-34) % RDW 19.4 H (13.2-15.2) % [place] % (Auto) 14.8 H (0.0-7.3) % BUN 56 H (9-20) mg/dL Creatinine 11.2 H (0.8-1.5) mg/dL Glucose 104 H (75-100) mg/dL Phosphorus 6.40 H (2.5-4.5) mg/dL Urine Creatinine 54.1 H (0.1-20.0) mg/dL Assessment and Plan This patient was admitted via the emergency room due to chest pain. Cardiology and nephrology were consulted. History of pain has improved. He was noted to be in acute on chronic kidney disease. It is felt he will require initiation of hemodialysis. A vascular surgery consult has been requested to evaluate for permacath placement. Risks benefits and alternatives to permacath placement were discussed, and the patient has agreed to proceed. This will be performed in the cardiac catheterization suite utilizing both fluoroscopic and ultrasound guidance. In the event the patient does require long-term hemodialysis access, I will recommend no vena punctures to his left upper extremity. - Patient Problems (1) Acute kidney injury superimposed on chronic kidney disease Current Visit: Yes Status: Acute (2) Uncontrolled hypertension Current Visit: Yes Status: Acute (3) Chest pain Current Visit: Yes Status: Acute
[2018-06-21] MEDS: PROCRIT SUB-Q SCH (18:00)
[2018-06-21] MEDS: PERCOCET 5/325 PO PRN (21:16)
[2018-06-22 06:14] LABS: Basophils % (Auto) 0.6 % (0.0-1.8); Eosinophils # (Auto) 0.1 K/mm3 (0.0-0.4); Eosinophils % (Auto) 1.8 % (0.0-4.3); Hematocrit 31.6 % (35.5-45.6); Hemoglobin 9.7 gm/dl (11.8-15.2); Lymphocytes # (Auto) 1.8 K/mm3 (1.2-5.4); Lymphocytes % (Auto) 23.5 % (13.4-35.0); Mean Corpuscular HGB Conc 31 % (32-34); Mean Corpuscular Volume 76 fl (84-94); Monocytes # (Auto) 0.9 K/mm3 (0.0-0.8); Monocytes % (Auto) 12.1 % (0.0-7.3); Platelet Count 188 K/mm3 (140-440); Red Blood Count 4.14 M/mm3 (3.65-5.03); Red Cell Distribution Width 19.4 % (13.2-15.2)
[2018-06-22] MEDS: APRESOLINE PO SCH ×3 (07:23→22:18)
[2018-06-22] MEDS: LASIX IV SCH ×2 (07:24→17:39)
[2018-06-22] MEDS ORDERED: ANCEF/STERILE WATER 2 GM/20 ML 2 GM/20 ML SYRINGE IV NR (08:00)
--- NOTE | 2018-06-22 09:17 | Progress Note ---
Assessment and Plan ESRD not on HD Chest Pain Metabolic acidosis: Acute on chronic CHF Essential HTN: Hyperlipidemia, chronic: Anemia of chronic disease: Obesity: Plan -agreeable with HD, vascular consult placed for permcath. discussed with case management re outpatient dialysis placement - HD today after permcath placement -cont lasix 80 mg BID IV -No hydronephrosis on renal US but possible solid mass, Urology consulted. - has nephrotic range proteinuria, secondary GN and vasculitis work up ordered, pending -Renally dose all meds and avoid nephrotoxic meds -Avoid RAAS inhibitors for now -Titrate BP meds PRN -Monitor H&H, Started Epogen. Subjective Date of service: 06/22/18 Principal diagnosis: chronic kidney disease Interval history: waiting for catheter placement Objective - Vital Signs Vital signs: Vital Signs - 12hr 06/21/18 06/22/18 06/22/18 22:59 05:04 07:23 Temperature 98.5 F 98.5 F Pulse Rate 91 H 94 H 94 H Respiratory 16 16 Rate Blood Pressure 166/97 182/95 182/95 O2 Sat by Pulse 94 94 Oximetry - General Appearance General appearance: well-developed, well-nourished EENT: ATNC, PERRL, mucous membranes moist Neck: no JVD, no carotid bruit Cardiology: regular, S1S2 Gastrointestinal: normoactive bowel sounds, no tenderness, no distended Integumentary: no rash, warm and dry Neurologic: no focal deficit, no asterixis, alert and oriented x3 Musculoskeletal: other (trace pitting edema in BLE) Psychiatric: mood/affect appropriate, cooperative - Lab 06/22/18 05:24 06/22/18 05:24 Most recent lab results Calcium 9.0 mg/dL (8.4-10.2) 06/22/18 05:24 Phosphorus 6.30 mg/dL (2.5-4.5) H 06/22/18 05:24 Urine Creatinine 54.1 mg/dL (0.1-20.0) H 06/21/18 05:30 Urine Sodium 63 mmol/L 06/18/18 06:30 Urine Total Protein 256 mg/dL (5-11.8) H 06/18/18 06:30 Medications & Allergies - Medications Allergies/Adverse Reactions: Allergies ibuprofen Allergy (Verified 06/17/18 09:52) Bleeding Home Medications: Home Medications Medication Instructions Recorded Confirmed Last Taken Type Hydralazine HCl 50 mg PO TID 06/17/18 06/17/18 06/16/18 History 50 ISOSORBIDE MONOnitrate [Imdur ER] 60 mg PO QDAY 06/17/18 06/17/18 06/16/18 History 60 Metoprolol Xl [Metoprolol 100 mg PO DAILY 06/17/18 06/17/18 06/16/18 History SUCCINATE ER TAB] 100 NIFEdipine [Nifedipine ER] 90 mg PO DAILY 06/17/18 06/17/18 06/16/18 History 90 Pantoprazole [Protonix] 40 mg PO QDAY 06/17/18 06/17/18 06/16/18 History 40 Active Medications: Generic Name Dose Route Start Last Admin Trade Name Freq PRN Reason Stop Dose Admin Acetaminophen 650 mg 06/17/18 19:19 Tylenol PO Q4H PRN Pain MILD(1-3)/Fever >100.5/VALDEZ Epoetin Jeison 10,000 unit 06/19/18 18:09 06/21/18 18:00 Procrit SUB-Q Not Given MOWEFR VERNELL Famotidine 20 mg 06/20/18 22:00 06/21/18 09:34 Pepcid PO 20 mg DAILY VERNELL Administration Furosemide 80 mg 06/18/18 18:00 06/22/18 07:24 Lasix IV 80 mg 0600,1800 VERNELL Administration Hydralazine HCl 50 mg 06/17/18 22:00 06/22/18 07:23 Apresoline PO 50 mg Q8HR VERNELL Administration Hydromorphone HCl 1 mg 06/17/18 19:19 Dilaudid IV Q3H PRN Pain , Severe (7-10) Cefazolin Sodium 2 gm in 20 mls @ 80 mls/hr 06/22/18 08:00 Ancef/Sterile Water 2 Gm/20 Ml IV 06/22/18 23:00 PREOP NR Protocol Isosorbide Mononitrate 60 mg 06/17/18 16:00 06/21/18 09:34 Imdur PO 60 mg QDAY VERNELL Administration Metoclopramide HCl 10 mg 06/18/18 13:47 06/18/18 14:05 Reglan IV 10 mg Q6H PRN Administration Nausea And Vomiting Metoprolol Succinate 100 mg 06/18/18 10:00 06/21/18 09:46 Toprol Xl PO 100 mg DAILY VERNELL Administration Nifedipine 90 mg 06/18/18 10:00 06/21/18 09:33 Procardia Xl PO 90 mg QDAY VERNELL Administration Ondansetron HCl 4 mg 06/17/18 19:19 06/19/18 09:38 Zofran IV 4 mg Q8H PRN Administration Nausea And Vomiting Oxycodone/Acetaminophen 1 tab 06/17/18 19:19 06/21/18 21:16 Percocet 5/325 PO 1 tab Q6H PRN Administration Pain, Moderate (4-6) Polyethylene Glycol 17 gm 06/18/18 17:10 06/18/18 18:23 Miralax 3350 PO 17 gm QDAY PRN Administration Constipation Promethazine HCl 25 mg 06/17/18 19:19 Phenergan MA Q6H PRN N/V IF NPO AND NO IV ACCESS Sodium Chloride 10 ml 06/17/18 22:00 06/21/18 21:16 Sodium Chloride Flush Syringe 10 Ml IV 10 ml BID VERNELL Administration Sodium Chloride 10 ml 06/17/18 19:19 Sodium Chloride Flush Syringe 10 Ml IV PRN PRN LINE FLUSH
[2018-06-22] MEDS: PEPCID PO SCH (09:41)
[2018-06-22] MEDS: IMDUR PO SCH (09:41)
[2018-06-22] MEDS: PROCARDIA XL PO SCH (09:41)
[2018-06-22] MEDS: TOPROL XL PO SCH (09:41)
[2018-06-22] MEDS: SODIUM CHLORIDE FLUSH SYRINGE 10 ML IV SCH ×2 (09:42→22:18)
--- NOTE | 2018-06-22 10:33 | Progress Note ---
Addendum entered and electronically signed by MARIAH BRANCH MD 06/22/18 15:34: Medical therapy for chronic hypertension, nonischemic cardiomyopathy and chronic systolic heart failure. Permacath placement is planned for initiation of hemodialysis. Original Note: Assessment and Plan Chronic renal failure with plans to initiate dialysis COPD Systemic Hypertension Echo showing severe LVH with hyperdynamic LVEF 70-75%. MPI this admission - no ischemia. Plan: Conservative cardiac management. Subjective Date of service: 06/22/18 Principal diagnosis: chronic kidney disease Interval history: Patient awaits permacath placement. He denies chest pain and shortness of breath. Objective Vital Signs Temp Pulse Resp BP BP Pulse Ox 06/22/18 07:23 94 H 182/95 06/22/18 05:04 98.5 F 94 H 16 182/95 94 06/21/18 22:59 98.5 F 91 H 16 166/97 94 06/21/18 21:16 20 06/21/18 21:15 89 165/75 06/21/18 15:51 98.7 F 90 16 125/82 95 06/21/18 14:25 90 120/90 06/21/18 14:00 106 H 06/21/18 12:22 98.3 F 89 18 131/75 94 - Physical Examination General: No Apparent Distress HEENT: Positive: PERRL Neck: Positive: trachea midline Cardiac: Positive: Reg Rate and Rhythm Lungs: Positive: Decreased Breath Sounds Neuro: Positive: Grossly Intact Abdomen: Positive: Soft Extremities: Absent: edema - Labs and Meds CBC 06/22/18 Range/Units 05:24 WBC 7.6 (4.5-11.0) K/mm3 RBC 4.14 (3.65-5.03) M/mm3 Hgb 9.7 L (11.8-15.2) gm/dl Hct 31.6 L (35.5-45.6) % Plt Count 188 (140-440) K/mm3 Lymph # 1.8 (1.2-5.4) K/mm3 [place] # 0.9 H (0.0-0.8) K/mm3 Eos # 0.1 (0.0-0.4) K/mm3 Baso # 0.0 (0.0-0.1) K/mm3 Comprehensive Metabolic Panel 12/27/18 Range/Units 05:24 Sodium 143 (137-145) mmol/L Potassium 3.5 L (3.6-5.0) mmol/L Chloride 103.0 (98-107) mmol/L Carbon Dioxide 23 (22-30) mmol/L BUN 59 H (9-20) mg/dL Creatinine 10.6 H (0.8-1.5) mg/dL Glucose 100 (75-100) mg/dL Calcium 9.0 (8.4-10.2) mg/dL
[2018-06-22] MEDS ORDERED: HEPARIN/NS 5000 UNIT/500ML(CATH LAB) 500 ML IR ONE (12:50)
[2018-06-22] MEDS ORDERED: ANCEF/STERILE WATER 2 GM/20 ML 2 GM/20 ML SYRINGE IV ONE (12:51)
[2018-06-22] MEDS ORDERED: NACL 0.9% 250ML 0 ML ONE (12:51)
[2018-06-22] MEDS ORDERED: NACL 0.9% 250ML 250 ML ONE (12:54)
[2018-06-22] MEDS: VERSED ONE ×4 (13:25→13:41)
[2018-06-22] MEDS: SUBLIMAZE ONE ×4 (13:25→13:41)
[2018-06-22] MEDS: XYLOCAINE 1%/ EPI 1:100,000 INFILTRATI ONE ×3 (13:25→13:36)
[2018-06-22] MEDS: HEPARIN 10,000 UNITS/10 ML ONE ×3 (13:26→14:05)
[2018-06-22] MEDS ORDERED: SUBLIMAZE ONE (13:47)
[2018-06-22] MEDS ORDERED: VERSED ONE (13:47)
--- NOTE | 2018-06-22 14:05 | Operative Report ---
Operative Report Operative Report: EXAM: 1. Ultrasound-guided puncture of the right internal jugular vein 2. Fluoroscopic-guided placement of a right internal jugular tunneled cuffed hemodialysis catheter. DATE: 06/22/18 INDICATION: End stage renal disease MEDICATIONS: Please see nursing report for full details. DEVICES: 27 cm tip to cuff 15 Fr dual lumen hemodialysis catheter [employer] LABORER: KATIE GARCIA MD CONTRAST: None PROCEDURE: The risks, benefits, and alternatives were discussed and informed consent was obtained. The patient was transported to the angiography suite in satisfactory/stable condition and was transported onto the angiography table. The patient's right internal jugular vein was assessed with ultrasound and det ermined to be patent prior to procedure. The patient was prepped and draped in a sterile fashion. The puncture site was anesthetized. Under sonographic guidance, the right internal jugular vein was punctured with a 21-gauge micropuncture needle and a 0.018 inch wire was advanced into the inferior vena cava. The micropuncture needle was exchanged for a transitional dilator and the wire was retracted into the right atrium to tamiko intravascular distance. The wire and inner dilator were removed. 0.035 inch wire was advanced through the transitional dilator into the inferior vena cava. A suitable exit site was identified on the patient's chest inferior and lateral to the venotomy. The site was anesthetized with local anesthetic and the track was anesthetized. Dermatotomy was made. The PermCath was attached to the tunneling device and tunneled between the dermatotomy to the venotomy. Over the 0.035 inch wire, serial dilatation was performed with ultimate placement of a peel-away sheath. The catheter was advanced through the peel- away sheath after the wire was removed and positioned centrally under fluoroscopic guidance. The peel-away sheath was removed. 4-0 Vicryl suture was used to close the venotomy and Dermabond was then applied. 2-0 Ethilon suture was used to secure the catheter at the dermatotomy. The catheter was charged with heparin 1000 units/mL space. Sterile dressing applied. The patient was transferred from the angiography suite back to the floor in stable condition. FINDINGS: 1. Excellent flow was obtained through the dialysis catheter with 20 mL syringes. 2. The catheter tip is in the right atrium. IMPRESSION: 1. Successful ultrasound and fluoroscopically guided placement of a right internal jugular tunneled cuffed hemodialysis catheter.
--- NOTE | 2018-06-22 14:06 | Post Operative Note ---
Date of procedure: 06/22/18 Pre-op diagnosis: ESRD requiring hemodialysis access Post-op diagnosis: same Procedure: permcath placement Anesthesia: local (w/ conscious sedation) Surgeon: KATIE GARCIA Estimated blood loss: minimal Condition: stable Disposition: floor
--- NOTE | 2018-06-22 14:24 | Progress Note ---
Assessment and Plan Assessment and plan: Patient is 38 yo man with a history of hypertension, depression, CHF, CKD 4 not on hemodialysis and gerd who presented with chest pains. * 06/19/18 2D ECHO: The left ventricular chamber size is normal. Severe concentric LVH. The myocardium has a granular appearance on echo raising the suspicion of infiltrative cardiomyopathy. Global left ventricular systolic function appears hyperdynamic, estimated EF 70-75%, abnormal left ventricular diastolic filling, c/w impaired relaxation, right ventricle wall thickness is moderately increased, right ventricle is mildly dilated, moderate AR, RVSP 48 mmHg, trivial pericardial effusion -Hypertensive malignancy with urgency with Initial BPs very high, 204/136 and 229/155, PO HYudralazine Metoprolol and Nifedipine initiated, IV Hydralazine and IV Labetolol initiated, -Elevated troponins with chest pains, Acute coronary syndrome unlikely: d/w Cardiology -ARF/CKD 5, ATN and Vasomotor nephrology, poa, not on hemodialysis, Cr plateau: d/w Nephrology, Renal u/s reviewed -GERD (gastroesophageal reflux disease): h2 christianne, d/c ppi due to renal failure -AOCD: monitor cbc -DVT prophylaxis: On Heparin and GI prophylaxis -Morbid obesity, bmi 40.9: 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 Follow-up on current diagnosis of chest pains, resolved. Overnight uneventful. Patient denies any shortness breath, nausea/vomiting or severe headaches. Imaging, nursing note, chart, labs and old chart reviewed. Discussed with patient. and grandson at bedside. Hospitalist Physical - Physical exam Narrative exam: Gen: WDWN, NAD, Awake, Alert, Orientated x 3, bmi 40.9 HEENT: NCAT, EOMI, PERRL, OP Clear Neck: supple, no adenopathy, no thyromegaly, no JVD CVS/Heart: Reg bradycardia, normal S1S2, pulses present bilaterally Chest/Lungs: diminished, Symmetrical chest expansion, good air entry bilaterally GI/Abdomen: soft, NTND, good bowel sounds, no guarding or rebound /Bladder: no suprapubic tenderness, no CVA or paraspinal tenderness Extermity/Skin: bilateral leg edema, no obvious rash MSK: FROM x 4 Neuro: CN 2-12 grossly intact, no new focal deficits Psych: calm - Constitutional Vitals: Temp Pulse Resp BP Pulse Ox 99.1 F 87 18 176/86 94 06/22/18 12:53 06/22/18 12:53 06/22/18 12:53 06/22/18 12:53 06/22/18 11:35 General appearance: Present: obese Results - Labs CBC & Chem 7: 06/22/18 05:24 06/22/18 05:24 Labs: Laboratory Last Values WBC 7.6 K/mm3 (4.5-11.0) 06/22/18 05:24 RBC 4.14 M/mm3 (3.65-5.03) 06/22/18 05:24 Hgb 9.7 gm/dl (11.8-15.2) L 06/22/18 05:24 Hct 31.6 % (35.5-45.6) L 06/22/18 05:24 MCV 76 fl (84-94) L 06/22/18 05:24 MCH 24 pg (28-32) L 06/22/18 05:24 MCHC 31 % (32-34) L 06/22/18 05:24 RDW 19.4 % (13.2-15.2) H 06/22/18 05:24 Plt Count 188 K/mm3 (140-440) 06/22/18 05:24 Lymph % (Auto) 23.5 % (13.4-35.0) 06/22/18 05:24 [place] % (Auto) 12.1 % (0.0-7.3) H 06/22/18 05:24 Eos % (Auto) 1.8 % (0.0-4.3) 06/22/18 05:24 Baso % (Auto) 0.6 % (0.0-1.8) 06/22/18 05:24 Lymph # 1.8 K/mm3 (1.2-5.4) 06/22/18 05:24 [place] # 0.9 K/mm3 (0.0-0.8) H 06/22/18 05:24 Eos # 0.1 K/mm3 (0.0-0.4) 06/22/18 05:24 Baso # 0.0 K/mm3 (0.0-0.1) 06/22/18 05:24 Seg Neutrophils % 62.0 % (40.0-70.0) 06/22/18 05:24 Seg Neutrophils # 4.7 K/mm3 (1.8-7.7) 06/22/18 05:24 Sodium 143 mmol/L (137-145) 06/22/18 05:24 Potassium 3.5 mmol/L (3.6-5.0) L 06/22/18 05:24 Chloride 103.0 mmol/L (98-107) 06/22/18 05:24 Carbon Dioxide 23 mmol/L (22-30) 06/22/18 05:24 Anion Gap 21 mmol/L 06/22/18 05:24 BUN 59 mg/dL (9-20) H 06/22/18 05:24 Creatinine 10.6 mg/dL (0.8-1.5) H 06/22/18 05:24 Estimated GFR 7 ml/min 06/22/18 05:24 BUN/Creatinine Ratio 6 % 06/22/18 05:24 Glucose 100 mg/dL (75-100) 06/22/18 05:24 Hemoglobin A1c < 4.2 % (4-6) 06/17/18 19:24 Calcium 9.0 mg/dL (8.4-10.2) 06/22/18 05:24 Phosphorus 6.30 mg/dL (2.5-4.5) H 06/22/18 05:24 Total Bilirubin 0.20 mg/dL (0.1-1.2) 06/18/18 04:17 AST 13 units/L (5-40) 06/18/18 04:17 ALT 12 units/L (7-56) 06/18/18 04:17 Alkaline Phosphatase 71 units/L (35-129) 06/18/18 04:17 Troponin T 0.099 ng/mL (0.00-0.029) H 06/17/18 20:00 Total Protein 6.9 g/dL (6.3-8.2) 06/18/18 04:17 Albumin 3.3 g/dL (3.9-5) L 06/18/18 04:17 Albumin/Globulin Ratio 0.9 % 06/18/18 04:17 Triglycerides 98 mg/dL (2-149) 06/17/18 10:07 Cholesterol 161 mg/dL (50-199) 06/17/18 10:07 LDL Cholesterol Direct 121 mg/dL (50-130) 06/17/18 10:07 HDL Cholesterol 38 mg/dL (40-59) L 06/17/18 10:07 Cholesterol/HDL Ratio 4.23 % 06/17/18 10:07 Urine Color Straw (Yellow) 06/18/18 06:30 Urine Turbidity Clear (Clear) 06/18/18 06:30 Urine pH 5.0 (5.0-7.0) 06/18/18 06:30 Ur Specific [place] 1.006 (1.003-1.030) 06/18/18 06:30 Urine Protein 100 mg/dl mg/dL (Negative) 06/18/18 06:30 Urine Glucose (UA) Neg mg/dL (Negative) 06/18/18 06:30 Urine Ketones Neg mg/dL (Negative) 06/18/18 06:30 Urine Blood Neg (Negative) 06/18/18 06:30 Urine Nitrite Neg (Negative) 06/18/18 06:30 Urine Bilirubin Neg (Negative) 06/18/18 06:30 Urine Urobilinogen < 2.0 mg/dL (<2.0) 06/18/18 06:30 Ur Leukocyte Esterase Neg (Negative) 06/18/18 06:30 Urine WBC (Auto) 2.0 /HPF (0.0-6.0) 06/18/18 06:30 Urine RBC (Auto) 5.0 /HPF (0.0-6.0) 06/18/18 06:30 Amorphous Crystals 1+ 06/18/18 06:30 Urine Mucus Few /HPF 06/18/18 06:30 Urine Eosinophils None seen (None Seen) 06/18/18 06:30 Urine Creatinine 54.1 mg/dL (0.1-20.0) H 06/21/18 05:30 Protein/Creatinin Ratio 3.17 06/18/18 06:30 Urine Sodium 63 mmol/L 06/18/18 06:30 Urine Urea Nitrogen 257 06/18/18 06:30 Urine Total Protein 256 mg/dL (5-11.8) H 06/18/18 06:30 Hep Bs Antigen Non-reactive (Negative) 06/19/18 16:00 Hepatitis C Antibody Non-reactive (NonReactive) 06/19/18 16:00 HIV 1&2 Antibody Rapid Non react (Non React) 06/19/18 16:00 HIV P24 Antigen Non react (Non React) 06/19/18 16:00 Nutrition/Malnutrition Assess - Dietary Evaluation Nutrition/Malnutrition Findings: Nutrition Notes Start: 06/22/18 10 :21 Freq: Status: Active Protocol: Document 06/22/18 10:21 SOTO (Rec: 06/22/18 10:26 [facility] SRW- [id number]) Nutrition Notes Need for Assessment generated from: LOS Initial or Follow up Brief Note Height 6 ft 4 in Weight 152.407 kg [place] Body Weight (lbs) 202.0 BMI 40.8 Subjective/Other Information Pt screened for LOS. He has consumed 90% of meals since admission. Percent of energy/protein needs met: 90% energy 72% pro Burn Absent Trauma Absent Is patient on ventilator? No Is Patient Ambulatory and/or Out of Bed Yes REE-([place]-St. Jeor-ambulatory/OOB) [ 3322.241 NUTR.MSJOOB] Kcal/Kg value to use for calculation 14 Approximate Energy Requirements Using 2134 kcal/Kg Calculation Used for Recommendations Kcal/kg Additional Notes Pro needs 0.8-1g/kg adjBW: 98- 122g/day Fluid needs 1ml/kcal Nutrition Intervention Follow-Up By: 06/28/18 Additional Comments F/U: stable intakes
[2018-06-22] MEDS ORDERED: NACL 0.9 (PRIMING MACHINE ONLY DIALYSIS) MC ONE (14:48)
[2018-06-22] MEDS: DILAUDID IV PRN (15:02)
[2018-06-22] MEDS: PERCOCET 5/325 PO PRN (19:18)
[2018-06-22 23:32] LABS: Albumin 3.5 g/dL (3.8-4.8); Gamma Globulin 1.8 g/dL (0.8-1.7)
[2018-06-23 06:11] LABS: Basophils % (Auto) 0.7 % (0.0-1.8); Eosinophils # (Auto) 0.1 K/mm3 (0.0-0.4); Eosinophils % (Auto) 1.3 % (0.0-4.3); Hematocrit 29.5 % (35.5-45.6); Hemoglobin 9.2 gm/dl (11.8-15.2); Lymphocytes # (Auto) 1.3 K/mm3 (1.2-5.4); Lymphocytes % (Auto) 19.9 % (13.4-35.0); Mean Corpuscular HGB Conc 31 % (32-34); Mean Corpuscular Volume 76 fl (84-94); Monocytes # (Auto) 0.8 K/mm3 (0.0-0.8); Monocytes % (Auto) 12.3 % (0.0-7.3); Platelet Count 155 K/mm3 (140-440); Red Blood Count 3.87 M/mm3 (3.65-5.03); Red Cell Distribution Width 19.5 % (13.2-15.2)
[2018-06-23] MEDS: LASIX IV SCH ×2 (06:23→18:31)
[2018-06-23] MEDS: APRESOLINE PO SCH ×3 (06:23→21:14)
[2018-06-23] MEDS: PERCOCET 5/325 PO PRN ×3 (06:28→21:16)
[2018-06-23 06:38] LABS: Calcium 9.1 mg/dL (8.4-10.2)
[2018-06-23] MEDS: PROCARDIA XL PO SCH (09:29)
[2018-06-23] MEDS: SODIUM CHLORIDE FLUSH SYRINGE 10 ML IV SCH ×2 (09:29→21:13)
[2018-06-23] MEDS: IMDUR PO SCH (09:29)
[2018-06-23] MEDS: TOPROL XL PO SCH (09:29)
[2018-06-23] MEDS: PEPCID PO SCH (09:29)
[2018-06-23] MEDS ORDERED: NACL 0.9% 100 ML IV PRN (09:59)
--- NOTE | 2018-06-23 10:16 | Progress Note ---
Assessment and Plan Chronic renal failure initiated on dialysis COPD Systemic Hypertension Echo showing severe LVH with hyperdynamic LVEF 70-75%. MPI this admission - no ischemia. No further recommendations. We will follow intermittently. Subjective Date of service: 06/23/18 Principal diagnosis: chronic kidney disease Interval history: Initiated on dialysis yesterday. Patient denies chest pain and shortness of breath. Objective Vital Signs Temp Pulse Pulse Resp BP BP Pulse Ox 06/23/18 06:28 20 06/23/18 06:23 101 H 141/90 06/23/18 04:53 99.1 F 101 H 18 141/90 98 06/22/18 23:21 99.1 F 87 18 119/66 94 06/22/18 22:18 87 111/72 06/22/18 21:34 94 H 06/22/18 17:00 97.9 F 111 H 20 122/77 95 06/22/18 16:59 97.6 F 92 H 20 155/76 06/22/18 16:46 92 H 155/76 06/22/18 16:15 92 H 111/77 06/22/18 16:00 92 H 151/92 06/22/18 15:45 90 143/74 06/22/18 15:30 93 H 125/73 06/22/18 15:15 90 171/99 06/22/18 15:02 20 06/22/18 15:00 92 H 166/91 06/22/18 14:45 94 H 170/92 06/22/18 14:30 97.5 F L 99 H 20 148/86 06/22/18 12:53 99.1 F 87 18 176/86 06/22/18 11:35 98.2 F 87 20 149/99 94 - Physical Examination General: No Apparent Distress HEENT: Positive: PERRL Neck: Positive: trachea midline Cardiac: Positive: Reg Rate and Rhythm Lungs: Positive: Decreased Breath Sounds Neuro: Positive: Grossly Intact Abdomen: Positive: Soft Extremities: Absent: edema - Labs and Meds CBC 06/23/18 Range/Units 05:50 WBC 6.4 (4.5-11.0) K/mm3 RBC 3.87 (3.65-5.03) M/mm3 Hgb 9.2 L (11.8-15.2) gm/dl Hct 29.5 L (35.5-45.6) % Plt Count 155 (140-440) K/mm3 Lymph # 1.3 (1.2-5.4) K/mm3 [place] # 0.8 (0.0-0.8) K/mm3 Eos # 0.1 (0.0-0.4) K/mm3 Baso # 0.0 (0.0-0.1) K/mm3 Comprehensive Metabolic Panel 06/20/18 06/23/18 Range/Units 09:22 05:50 Sodium 140 (137-145) mmol/L Potassium 3.5 L (3.6-5.0) mmol/L Chloride 98.8 (98-107) mmol/L Carbon Dioxide 24 (22-30) mmol/L BUN 52 H (9-20) mg/dL Creatinine 9.2 H (0.8-1.5) mg/dL Glucose 95 (75-100) mg/dL Calcium 9.1 (8.4-10.2) mg/dL Albumin 3.5 L (3.8-4.8) g/dL
--- NOTE | 2018-06-23 10:36 | Progress Note ---
Assessment and Plan ESRD not on HD Chest Pain Metabolic acidosis: Acute on chronic CHF Essential HTN: Hyperlipidemia, chronic: Anemia of chronic disease: Obesity: Plan -HDagain today for clearance and volume removal - can be discharged from renal standpoint once outpatient dialysis is set up, discussed with case management, unlikely to be done before the holiday - has nephrotic range proteinuria, secondary GN and vasculitis work up ordered, so far with normal complement and negative HCV, HBV and HIV -Renally dose all meds and avoid nephrotoxic meds -Avoid RAAS inhibitors for now -Titrate BP meds PRN Subjective Date of service: 06/23/18 Principal diagnosis: chronic kidney disease Interval history: tolerated permcath placement and dialysis well yesterday Objective - Vital Signs Vital signs: Vital Signs - 12hr 06/22/18 06/23/18 06/23/18 23:21 04:53 06:23 Temperature 99.1 F 99.1 F Pulse Rate 87 101 H 101 H Respiratory 18 18 Rate Blood Pressure 119/66 141/90 141/90 O2 Sat by Pulse 94 98 Oximetry 06/23/18 06:28 Temperature Pulse Rate Respiratory 20 Rate Blood Pressure O2 Sat by Pulse Oximetry - General Appearance General appearance: well-developed, well-nourished, appears stated age EENT: ATNC, PERRL, mucous membranes moist Neck: no JVD, no carotid bruit Respiratory: Present: Clear to Ascultation. Absent: Rales, Ronchi Cardiology: regular, S1S2 Gastrointestinal: normoactive bowel sounds, no tenderness, no distended Integumentary: no rash, warm and dry Neurologic: no focal deficit, no asterixis, alert and oriented x3 Musculoskeletal: other (trace pitting edema in BLE) Psychiatric: mood/affect appropriate, cooperative - Lab 06/23/18 05:50 06/23/18 05:50 Most recent lab results Calcium 9.1 mg/dL (8.4-10.2) 06/23/18 05:50 Phosphorus 6.50 mg/dL (2.5-4.5) H 06/23/18 05:50 Urine Creatinine 54.1 mg/dL (0.1-20.0) H 06/21/18 05:30 Urine Sodium 63 mmol/L 06/18/18 06:30 Urine Total Protein 256 mg/dL (5-11.8) H 06/18/18 06:30 Medications & Allergies - Medications Allergies/Adverse Reactions: Allergies ibuprofen Allergy (Verified 06/17/18 09:52) Bleeding Home Medications: Home Medications Medication Instructions Recorded Confirmed Last Taken Type Hydralazine HCl 50 mg PO TID 06/17/18 06/17/18 06/16/18 History 50 ISOSORBIDE MONOnitrate [Imdur ER] 60 mg PO QDAY 06/17/18 06/17/18 06/16/18 Histo ry 60 Metoprolol Xl [Metoprolol 100 mg PO DAILY 06/17/18 06/17/18 06/16/18 History SUCCINATE ER TAB] 100 NIFEdipine [Nifedipine ER] 90 mg PO DAILY 06/17/18 06/17/18 06/16/18 History 90 Pantoprazole [Protonix] 40 mg PO QDAY 06/17/18 06/17/18 06/16/18 History 40 Active Medications: Generic Name Dose Route Start Last Admin Trade Name Freq PRN Reason Stop Dose Admin Acetaminophen 650 mg 06/17/18 19:19 Tylenol PO Q4H PRN Pain MILD(1-3)/Fever >100.5/VALDEZ Epoetin Jeison 10,000 unit 06/19/18 18:09 06/21/18 18:00 Procrit SUB-Q Not Given MOWEFR VERNELL Famotidine 20 mg 06/20/18 22:00 06/23/18 09:29 Pepcid PO 20 mg DAILY VERNELL Administration Furosemide 80 mg 06/18/18 18:00 06/23/18 06:23 Lasix IV 80 mg 0600,1800 VERNELL Administration Hydralazine HCl 50 mg 06/17/18 22:00 06/23/18 06:23 Apresoline PO 50 mg Q8HR VERNELL Administration Hydromorphone HCl 1 mg 06/17/18 19:19 06/22/18 15:02 Dilaudid IV 1 mg Q3H PRN Administration Pain , Severe (7-10) Sodium Chloride 100 mls @ 999 mls/hr 06/23/18 09:59 Nacl 0.9% IV JC PRN Hypotension Isosorbide Mononitrate 60 mg 06/17/18 16:00 06/23/18 09:29 Imdur PO 60 mg QDAY VERNELL Administration Metoclopramide HCl 10 mg 06/18/18 13:47 06/18/18 14:05 Reglan IV 10 mg Q6H PRN Administration Nausea And Vomiting Metoprolol Succinate 100 mg 06/18/18 10:00 06/23/18 09:29 Toprol Xl PO 100 mg DAILY VERNELL Administration Nifedipine 90 mg 06/18/18 10:00 06/23/18 09:29 Procardia Xl PO 90 mg QDAY VERNELL Administration Ondansetron HCl 4 mg 06/17/18 19:19 06/19/18 09:38 Zofran IV 4 mg Q8H PRN Administration Nausea And Vomiting Oxycodone/Acetaminophen 1 tab 06/17/18 19:19 06/23/18 06:28 Percocet 5/325 PO 1 tab Q6H PRN Administration Pain, Moderate (4-6) Polyethylene Glycol 17 gm 06/18/18 17:10 06/18/18 18:23 Miralax 3350 PO 17 gm QDAY PRN Administration Constipation Promethazine HCl 25 mg 06/17/18 19:19 Phenergan VT Q6H PRN N/V IF NPO AND NO IV ACCESS Sodium Chloride 10 ml 06/17/18 22:00 06/23/18 09:29 Sodium Chloride Flush Syringe 10 Ml IV 10 ml BID VERNELL Administration Sodium Chloride 10 ml 06/17/18 19:19 Sodium Chloride Flush Syringe 10 Ml IV PRN PRN LINE FLUSH
[2018-06-23] MEDS: DILAUDID IV PRN (11:14)
[2018-06-23] MEDS ORDERED: NACL 0.9 (PRIMING MACHINE ONLY DIALYSIS) MC ONE (13:19)
--- NOTE | 2018-06-23 14:47 | Progress Note ---
Assessment and Plan Assessment and plan: Patient is 38 yo man with a history of hypertension, depression, CHF, CKD 4 not on hemodialysis and gerd who presented with chest pains. * 06/19/18 2D ECHO: The left ventricular chamber size is normal. Severe concentric LVH. The myocardium has a granular appearance on echo raising the suspicion of infiltrative cardiomyopathy. Global left ventricular systolic function appears hyperdynamic, estimated EF 70-75%, abnormal left ventricular diastolic filling, c/w impaired relaxation, right ventricle wall thickness is moderately increased, right ventricle is mildly dilated, moderate AR, RVSP 48 mmHg, trivial pericardial effusion -Hypertensive malignancy with urgency with Initial BPs very high, 204/136 and 229/155, PO HYudralazine Metoprolol and Nifedipine initiated, IV Hydralazine and IV Labetolol initiated, -Elevated troponins with chest pains, Acute coronary syndrome unlikely: d/w Cardiology -ARF/CKD 5 now ESRD, ATN and Vasomotor nephrology, poa, not on hemodialysis, Cr plateau: d/w Nephrology, Renal u/s reviewed -GERD (gastroesophageal reflux disease): h2 christianne, d/c ppi due to renal vel lure -AOCD: monitor cbc -DVT prophylaxis: On Heparin and GI prophylaxis -Morbid obesity, bmi 40.9: equal opportunity counselor on weight reduction -Non-compliance: Counseled about compliance Disposition: continue inpatient care, anticipate discharge when hemodialysis is setup d/w his mother over the phone per his request to start HD after permacath 06/22/18 and first hemodialysis 06/22/18, another hemodialysis today. History Interval history: Patient was seen and examined. Follow-up on current diagnosis of chest pains, resolved. Overnight uneventful. Patient denies any shortness breath, nausea/vomiting or severe headaches. Imaging, nursing note, chart, labs and old chart reviewed. Discussed with patient. Patient states that he felt much much better after hemodialysis Hospitalist Physical - Physical exam Narrative exam: Gen: WDWN, NAD, Awake, Alert, Orientated x 3, bmi 40.9 HEENT: NCAT, EOMI, PERRL, OP Clear Neck: supple, no adenopathy, no thyromegaly, no JVD CVS/Heart: Reg bradycardia, normal S1S2, pulses present bilaterally Chest/Lungs: diminished, Symmetrical chest expansion, good air entry bilaterally GI/Abdomen: soft, NTND, good bowel sounds, no guarding or rebound /Bladder: no suprapubic tenderness, no CVA or paraspinal tenderness Extermity/Skin: bilateral leg edema, no obvious rash MSK: FROM x 4 Neuro: CN 2-12 grossly intact, no new focal deficits Psych: calm - Constitutional Vitals: Temp Pulse Resp BP Pulse Ox 97.8 F 86 16 85/47 98 06/23/18 14:19 06/23/18 14:30 06/23/18 14:19 06/23/18 14:30 06/23/18 04:53 General appearance: Present: obese Results - Labs CBC & Chem 7: 06/23/18 05:50 06/23/18 05:50 Labs: Laboratory Last Values WBC 6.4 K/mm3 (4.5-11.0) 06/23/18 05:50 RBC 3.87 M/mm3 (3.65-5.03) 06/23/18 05:50 Hgb 9.2 gm/dl (11.8-15.2) L 06/23/18 05:50 Hct 29.5 % (35.5-45.6) L 06/23/18 05:50 MCV 76 fl (84-94) L 06/23/18 05:50 MCH 24 pg (28-32) L 06/23/18 05:50 MCHC 31 % (32-34) L 06/23/18 05:50 RDW 19.5 % (13.2-15.2) H 06/23/18 05:50 Plt Count 155 K/mm3 (140-440) 06/23/18 05:50 Lymph % (Auto) 19.9 % (13.4-35.0) 06/23/18 05:50 [place] % (Auto) 12.3 % (0.0-7.3) H 06/23/18 05:50 Eos % (Auto) 1.3 % (0.0-4.3) 06/23/18 05:50 Baso % (Auto) 0.7 % (0.0-1.8) 06/23/18 05:50 Lymph # 1.3 K/mm3 (1.2-5.4) 06/23/18 05:50 [place] # 0.8 K/mm3 (0.0-0.8) 06/23/18 05:50 Eos # 0.1 K/mm3 (0.0-0.4) 06/23/18 05:50 Baso # 0.0 K/mm3 (0.0-0.1) 06/23/18 05:50 Seg Neutrophils % 65.8 % (40.0-70.0) 06/23/18 05:50 Seg Neutrophils # 4.2 K/mm3 (1.8-7.7) 06/23/18 05:50 Sodium 140 mmol/L (137-145) 06/23/18 05:50 Potassium 3.5 mmol/L (3.6-5.0) L 06/23/18 05:50 Chloride 98.8 mmol/L (98-107) 06/23/18 05:50 Carbon Dioxide 24 mmol/L (22-30) 06/23/18 05:50 Anion Gap 21 mmol/L 06/23/18 05:50 BUN 52 mg/dL (9-20) H 06/23/18 05:50 Creatinine 9.2 mg/dL (0.8-1.5) H 06/23/18 05:50 Estimated GFR 8 ml/min 06/23/18 05:50 BUN/Creatinine Ratio 6 % 06/23/18 05:50 Glucose 95 mg/dL (75-100) 06/23/18 05:50 Hemoglobin A1c < 4.2 % (4-6) 06/17/18 19:24 Calcium 9.1 mg/dL (8.4-10.2) 06/23/18 05:50 Phosphorus 6.50 mg/dL (2.5-4.5) H 06/23/18 05:50 Total Bilirubin 0.20 mg/dL (0.1-1.2) 06/18/18 04:17 AST 13 units/L (5-40) 06/18/18 04:17 ALT 12 units/L (7-56) 06/18/18 04:17 Alkaline Phosphatase 71 units/L (35-129) 06/18/18 04:17 Troponin T 0.099 ng/mL (0.00-0.029) H 06/17/18 20:00 Serum Total Protein 7.5 g/dL (6.1-8.1) 06/20/18 09:22 Total Protein 6.9 g/dL (6.3-8.2) 06/18/18 04:17 Albumin 3.5 g/dL (3.8-4.8) L 06/20/18 09:22 Albumin/Globulin Ratio 0.9 % 06/18/18 04:17 Pcguu-9-Pqtcchquj 0.5 g/dL (0.2-0.3) H 06/20/18 09:22 Cifqu-7-Alxpvktfe 0.8 g/dL (0.5-0.9) 06/20/18 09:22 Beta Globulins 0.4 g/dL (0.2-0.5) 06/20/18 09:22 Gamma Globulins 1.8 g/dL (0.8-1.7) H 06/20/18 09:22 Abnorm Protein Band 1 see below 06/20/18 09:22 PEP Interpretation see below H 06/20/18 09:22 Triglycerides 98 mg/dL (2-149) 06/17/18 10:07 Cholesterol 161 mg/dL (50-199) 06/17/18 10:07 LDL Cholesterol Direct 121 mg/dL (50-130) 06/17/18 10:07 HDL Cholesterol 38 mg/dL (40-59) L 06/17/18 10:07 Cholesterol/HDL Ratio 4.23 % 06/17/18 10:07 Urine Color Straw (Yellow) 06/18/18 06:30 Urine Turbidity Clear (Clear) 06/18/18 06:30 Urine pH 5.0 (5.0-7.0) 06/18/18 06:30 Ur Specific [place] 1.006 (1.003-1.030) 06/18/18 06:30 Urine Protein 100 mg/dl mg/dL (Negative) 06/18/18 06:30 Urine Glucose (UA) Neg mg/dL (Negative) 06/18/18 06:30 Urine Ketones Neg mg/dL (Negative) 06/18/18 06:30 Urine Blood Neg (Negative) 06/18/18 06:30 Urine Nitrite Neg (Negative) 06/18/18 06:30 Urine Bilirubin Neg (Negative) 06/18/18 06:30 Urine Urobilinogen < 2.0 mg/dL (<2.0) 06/18/18 06:30 Ur Leukocyte Esterase Neg (Negative) 06/18/18 06:30 Urine WBC (Auto) 2.0 /HPF (0.0-6.0) 06/18/18 06:30 Urine RBC (Auto) 5.0 /HPF (0.0-6.0) 06/18/18 06:30 Amorphous Crystals 1+ 06/18/18 06:30 Urine Mucus Few /HPF 06/18/18 06:30 Urine Eosinophils None seen (None Seen) 06/18/18 06:30 Urine Creatinine 54.1 mg/dL (0.1-20.0) H 06/21/18 05:30 Protein/Creatinin Ratio 3.17 06/18/18 06:30 Urine Sodium 63 mmol/L 06/18/18 06:30 Urine Urea Nitrogen 257 06/18/18 06:30 Urine Total Protein 256 mg/dL (5-11.8) H 06/18/18 06:30 Complement C3 138 mg/dL (82-185) 06/19/18 16:00 Complement C4 35 mg/dL (15-53) 06/19/18 16:00 Hep Bs Antigen Non-reactive (Negative) 06/19/18 16:00 Hepatitis C Antibody Non-reactive (NonReactive) 06/19/18 16:00 HIV 1&2 Antibody Rapid Non react (Non React) 06/19/18 16:00 HIV P24 Antigen Non react (Non React) 06/19/18 16:00 Nutrition/Malnutrition Assess - Dietary Evaluation Nutrition/Malnutrition Findings: Nutrition Notes Start: 06/22/18 10:21 Freq: Status: Active Protocol: Document 06/22/18 10:21 [facility] (Rec: 06/22/18 10:26 [facility] [email or web address]) Nutrition Notes Need for Assessment generated from: LOS Initial or Follow up Brief Note Height 6 ft 4 in Weight 152.407 kg [place] Body Weight (lbs) 202.0 BMI 40.8 Subjective/Other Information Pt screened for LOS. He has consumed 90% of meals since admission. Percent of energy/protein needs met: 90% energy 72% pro Burn Absent Trauma Absent Is patient on ventilator? No Is Patient Ambulatory and/or Out of Bed Yes REE-([place]-ambulatory/OOB) [ 3322.241 NUTR.MSJOOB] Kcal/Kg value to use for calculation 14 Approximate Energy Requirements Using 2134 kcal/Kg Calculation Used for Recommendations Kcal/kg Additional Notes Pro needs 0.8-1g/kg adjBW: 98- 122g/day Fluid needs 1ml/kcal Nutrition Intervention Follow-Up By: 06/28/18 Additional Comments F/U: stable intakes
[2018-06-23] MEDS: PROCRIT SUB-Q SCH (18:09)
[2018-06-24] MEDS: APRESOLINE PO SCH ×3 (06:05→21:40)
[2018-06-24] MEDS: LASIX IV SCH ×2 (06:05→17:10)
[2018-06-24 07:47] LABS: Basophils # (Auto) 0.1 K/mm3 (0.0-0.1); Basophils % (Auto) 0.8 % (0.0-1.8); Eosinophils # (Auto) 0.2 K/mm3 (0.0-0.4); Eosinophils % (Auto) 3.5 % (0.0-4.3); Hemoglobin 9.2 gm/dl (11.8-15.2); Lymphocytes # (Auto) 1.6 K/mm3 (1.2-5.4); Lymphocytes % (Auto) 22.2 % (13.4-35.0); Mean Corpuscular HGB Conc 31 % (32-34); Mean Corpuscular Volume 76 fl (84-94); Monocytes % (Auto) 14.6 % (0.0-7.3); Platelet Count 182 K/mm3 (140-440); Red Blood Count 3.93 M/mm3 (3.65-5.03); Red Cell Distribution Width 19.2 % (13.2-15.2)
[2018-06-24] MEDS: PERCOCET 5/325 PO PRN ×2 (07:52→21:40)
[2018-06-24 08:04] LABS: Calcium 9.4 mg/dL (8.4-10.2)
[2018-06-24] MEDS: SODIUM CHLORIDE FLUSH SYRINGE 10 ML IV SCH ×2 (09:51→21:41)
[2018-06-24] MEDS: PEPCID PO SCH (09:51)
[2018-06-24] MEDS: IMDUR PO SCH (10:00)
[2018-06-24] MEDS: TOPROL XL PO SCH (10:00)
[2018-06-24] MEDS: PROCARDIA XL PO SCH (10:00)
[2018-06-24 11:19] LABS: Myeloperoxidase Antibody <1.0 AI (<1.0)
--- NOTE | 2018-06-24 12:10 | Progress Note ---
Assessment and Plan - Patient Problems (1) Chest pain Current Visit: Yes Status: Acute Plan to address problem: Atypical chest pain has resolved. Myocardial perfusion study was negative. (2) Uncontrolled hypertension Current Visit: Yes Status: Acute Plan to address problem: Blood pressure control is optimal on current medications. (3) End stage renal disease Current Visit: Yes Status: Acute Plan to address problem: End-stage renal disease management with initiation of hemodialysis on this admission. Subjective Date of service: 06/24/18 Principal diagnosis: chronic kidney disease Interval history: Patient is comfortable, no chest pain, no shortness of breath, dialysis has been initiated 2 days ago, and a second dialysis session was scheduled for today. Blood pressure is stable at 121 systolic on current medications. Objective Vital Signs Temp Pulse Pulse Resp BP Pulse Ox 06/24/18 06:05 88 121/66 06/24/18 05:30 98.0 F 88 20 121/66 94 06/23/18 22:58 98.0 F 86 20 110/50 95 06/23/18 22:00 86 20 95 06/23/18 21:14 88 103/59 06/23/18 16:55 98.5 F 87 20 95/48 93 06/23/18 14:30 86 85/47 06/23/18 14:19 97.8 F 88 16 113/65 06/23/18 13:45 88 117/75 06/23/18 13:30 92 H 94/61 06/23/18 13:15 95 H 114/54 06/23/18 13:00 95 H 128/69 06/23/18 12:45 92 H 107/81 06/23/18 12:30 98 H 110/82 06/23/18 12:15 93 H 147/86 - Physical Examination General: Appears Well, No Apparent Distress HEENT: Positive: PERRL Neck: Positive: trachea midline Cardiac: Positive: Reg Rate and Rhythm Lungs: Positive: Decreased Breath Sounds Neuro: Positive: Grossly Intact Abdomen: Positive: Soft Skin: Positive: Clear Extremities: Absent: edema - Labs and Meds CBC 06/24/18 Range/Units 07:16 WBC 7.2 (4.5-11.0) K/mm3 RBC 3.93 (3.65-5.03) M/mm3 Hgb 9.2 L (11.8-15.2) gm/dl Hct 30.0 L (35.5-45.6) % Plt Count 182 (140-440) K/mm3 Lymph # 1.6 (1.2-5.4) K/mm3 [place] # 1.0 H (0.0-0.8) K/mm3 Eos # 0.2 (0.0-0.4) K/mm3 Baso # 0.1 (0.0-0.1) K/mm3 Comprehensive Metabolic Panel 06/24/18 Range/Units 07:16 Sodium 140 (137-145) mmol/L Potassium 3.4 L (3.6-5.0) mmol/L Chloride 98.2 (98-107) mmol/L Carbon Dioxide 25 (22-30) mmol/L BUN 40 H (9-20) mg/dL Creatinine 8.5 H (0.8-1.5) mg/dL Glucose 103 H (75-100) mg/dL Calcium 9.4 (8.4-10.2) mg/dL - Imaging and Cardiology EKG: report reviewed
[2018-06-24 13:24] LABS: ANA Screen, IFA Negative (Negative)
--- NOTE | 2018-06-24 14:50 | Progress Note ---
Assessment and Plan Assessment and plan: Patient is 38 yo man with a history of hypertension, depression, CHF, CKD 4 not on hemodialysis and gerd who presented with chest pains. * 06/19/18 2D ECHO: The left ventricular chamber size is normal. Severe concentric LVH. The myocardium has a granular appearance on echo raising the suspicion of infiltrative cardiomyopathy. Global left ventricular systolic function appears hyperdynamic, estimated EF 70-75%, abnormal left ventricular diastolic filling, c/w impaired relaxation, right ventricle wall thickness is moderately increased, right ventricle is mildly dilated, moderate AR, RVSP 48 mmHg, trivial pericardial effusion * His blood pressure medications were optimized. He was seen by cardiology who performed stress test which was negative * The patient had worsening renal function and then went into end-stage renal disease. He was started on dialysis. * His medications were optimized for chronic conditions, he was counseled about improved adherence with medications. * At this point the patient is ready for discharge, and he is awaiting dialysis placement prior to discharge Diagnosis -Hypertensive malignancy with urgency -Chest pain due to hypertensive urgency Nonspecific elevation of troponin, likely due to end-stage renal disease End-stage renal disease -GERD (gastroesophageal reflux disease): -AOCD: -DVT prophylaxis: -Morbid obesity, -Non-compliance: History Interval history: Review of systems Constitutional: No fevers, no malaise, no joint pains CVS: No chest pain, no orthopnea, no dyspnea on exertion, no pedal edema GI: No abdominal pain, no diarrhea, no vomiting, no constipation Respiratory: No shortness of breath, no wheezing, no coughing Hospitalist Physical - Physical exam Narrative exam: General.: Appears well, no distress, nontoxic HEENT: Moist mucous membranes, extraocular muscles intact, no lymphadenopathy Neck: supple Cardiac: S1-S2 heard Lungs: clear to auscultation bilaterally Abdomen: soft , nontender, nondistended, bowel sounds positive Extremities: no edema clubbing or cyanosis Skin: no rash or lesions Neurologic: no gross focal deficits Psych: appropriate behavior, appropriate mood, corporative, judgment intact - Constitutional Vitals: Temp Pulse Resp BP Pulse Ox 98.0 F 88 20 121/66 94 06/24/18 05:30 06/24/18 06:05 06/24/18 05:30 06/24/18 06:05 06/24/18 05:30 General appearance: Present: obese Results - Labs CBC & Chem 7: 06/26/18 04:40 06/26/18 04:40 Labs: Laboratory Last Values WBC 7.2 K/mm3 (4.5-11.0) 06/24/18 07:16 RBC 3.93 M/mm3 (3.65-5.03) 06/24/18 07:16 Hgb 9.2 gm/dl (11.8-15.2) L 06/24/18 07:16 Hct 30.0 % (35.5-45.6) L 06/24/18 07:16 MCV 76 fl (84-94) L 06/24/18 07:16 MCH 24 pg (28-32) L 06/24/18 07:16 MCHC 31 % (32-34) L 06/24/18 07:16 RDW 19.2 % (13.2-15.2) H 06/24/18 07:16 Plt Count 182 K/mm3 (140-440) 06/24/18 07:16 Lymph % (Auto) 22.2 % (13.4-35.0) 06/24/18 07:16 [place] % (Auto) 14.6 % (0.0-7.3) H 06/24/18 07:16 Eos % (Auto) 3.5 % (0.0-4.3) 06/24/18 07:16 Baso % (Auto) 0.8 % (0.0-1.8) 06/24/18 07:16 Lymph # 1.6 K/mm3 (1.2-5.4) 06/24/18 07:16 [place] # 1.0 K/mm3 (0.0-0.8) H 06/24/18 07:16 Eos # 0.2 K/mm3 (0.0-0.4) 06/24/18 07:16 Baso # 0.1 K/mm3 (0.0-0.1) 06/24/18 07:16 Seg Neutrophils % 58.9 % (40.0-70.0) 06/24/18 07:16 Seg Neutrophils # 4.2 K/mm3 (1.8-7.7) 06/24/18 07:16 Sodium 140 mmol/L (137-145) 06/24/18 07:16 Potassium 3.4 mmol/L (3.6-5.0) L 06/24/18 07:16 Chloride 98.2 mmol/L (98-107) 06/24/18 07:16 Carbon Dioxide 25 mmol/L (22-30) 06/24/18 07:16 Anion Gap 20 mmol/L 06/24/18 07:16 BUN 40 mg/dL (9-20) H 06/24/18 07:16 Creatinine 8.5 mg/dL (0.8-1.5) H 06/24/18 07:16 Estimated GFR 9 ml/min 06/24/18 07:16 BUN/Creatinine Ratio 5 % 06/24/18 07:16 Glucose 103 mg/dL (75-100) H 06/24/18 07:16 Hemoglobin A1c < 4.2 % (4-6) 06/17/18 19:24 Calcium 9.4 mg/dL (8.4-10.2) 06/24/18 07:16 Phosphorus 7.00 mg/dL (2.5-4.5) H 06/24/18 07:16 Total Bilirubin 0.20 mg/dL (0.1-1.2) 06/18/18 04:17 AST 13 units/L (5-40) 06/18/18 04:17 ALT 12 units/L (7-56) 06/18/18 04:17 Alkaline Phosphatase 71 units/L (35-129) 06/18/18 04:17 Troponin T 0.099 ng/mL (0.00-0.029) H 06/17/18 20:00 Serum Total Protein 7.5 g/dL (6.1-8.1) 06/20/18 09:22 Total Protein 6.9 g/dL (6.3-8.2) 06/18/18 04:17 Albumin 3.5 g/dL (3.8-4.8) L 06/20/18 09:22 Albumin/Globulin Ratio 0.9 % 06/18/18 04:17 Pbaxq-6-Hlxxsueon 0.5 g/dL (0.2-0.3) H 06/20/18 09:22 Nxdvc-7-Lmziqmqvo 0.8 g/dL (0.5-0.9) 06/20/18 09:22 Beta Globulins 0.4 g/dL (0.2-0.5) 06/20/18 09:22 Gamma Globulins 1.8 g/dL (0.8-1.7) H 06/20/18 09:22 Abnorm Protein Band 1 see below 06/20/18 09:22 PEP Interpretation see below H 06/20/18 09:22 Triglycerides 98 mg/dL (2-149) 06/17/18 10:07 Cholesterol 161 mg/dL (50-199) 06/17/18 10:07 LDL Cholesterol Direct 121 mg/dL (50-130) 06/17/18 10:07 HDL Cholesterol 38 mg/dL (40-59) L 06/17/18 10:07 Cholesterol/HDL Ratio 4.23 % 06/17/18 10:07 Urine Color Straw (Yellow) 06/18/18 06:30 Urine Turbidity Clear (Clear) 06/18/18 06:30 Urine pH 5.0 (5.0-7.0) 06/18/18 06:30 Ur Specific [place] 1.006 (1.003-1.030) 06/18/18 06:30 Urine Protein 100 mg/dl mg/dL (Negative) 06/18/18 06:30 Urine Glucose (UA) Neg mg/dL (Negative) 06/18/18 06:30 Urine Ketones Neg mg/dL (Negative) 06/18/18 06:30 Urine Blood Neg (Negative) 06/18/18 06:30 Urine Nitrite Neg (Negative) 06/18/18 06:30 Urine Bilirubin Neg (Negative) 06/18/18 06:30 Urine Urobilinogen < 2.0 mg/dL (<2.0) 06/18/18 06:30 Ur Leukocyte Esterase Neg (Negative) 06/18/18 06:30 Urine WBC (Auto) 2.0 /HPF (0.0-6.0) 06/18/18 06:30 Urine RBC (Auto) 5.0 /HPF (0.0-6.0) 06/18/18 06:30 Amorphous Crystals 1+ 06/18/18 06:30 Urine Mucus Few /HPF 06/18/18 06:30 Urine Eosinophils None seen (None Seen) 06/18/18 06:30 Urine Creatinine 54.1 mg/dL (0.1-20.0) H 06/21/18 05:30 Protein/Creatinin Ratio 3.17 06/18/18 06:30 Urine Sodium 63 mmol/L 06/18/18 06:30 Urine Urea Nitrogen 257 06/18/18 06:30 Urine Total Protein 256 mg/dL (5-11.8) H 06/18/18 06:30 MELODY Screen Negative (Negative) 06/19/18 16:00 Proteinase 3 (PR3) Ab <1.0 AI (<1.0) 06/19/18 16:00 Myeloperoxidase Ab <1.0 AI (<1.0) 06/19/18 16:00 Complement C3 138 mg/dL (82-185) 06/19/18 16:00 Complement C4 35 mg/dL (15-53) 06/19/18 16:00 Hep Bs Antigen Non-reactive (Negative) 06/19/18 16:00 Hepatitis C Antibody Non-reactive (NonReactive) 06/19/18 16:00 HIV 1&2 Antibody Rapid Non react (Non React) 06/19/18 16:00 HIV P24 Antigen Non react (Non React) 06/19/18 16:00 Nutrition/Malnutrition Assess - Dietary Evaluation Nutrition/Malnutrition Findings: Nutrition Notes Start: 06/22/18 10:21 Freq: Status: Active Protocol: Document 06/22/18 10:21 [facility] (Rec: 06/22/18 10:26 [facility] [email or web address]) Nutrition Notes Need for Assessment generated from: LOS Initial or Follow up Brief Note Height 6 ft 4 in Weight 152.407 kg [place] Body Weight (lbs) 202.0 BMI 40.8 Subjective/Other Information Pt screened for LOS. He has consumed 90% of meals since admission. Percent of energy/protein needs met: 90% energy 72% pro Burn Absent Trauma Absent Is patient on ventilator? No Is Patient Ambulatory and/or Out of Bed Yes REE-([place]-ambulatory/OOB) [ 3322.241 NUTR.MSJOOB] Kcal/Kg value to use for calculation 14 Approximate Energy Requirements Using 2134 kcal/Kg Calculation Used for Recommendations Kcal/kg Additional Notes Pro needs 0.8-1g/kg adjBW: 98- 122g/day Fluid needs 1ml/kcal Nutrition Intervention Follow-Up By: 06/28/18 Additional Comments F/U: stable intakes
--- NOTE | 2018-06-24 17:51 | Progress Note ---
Assessment and Plan ESRD not on HD Chest Pain Metabolic acidosis: Acute on chronic CHF Essential HTN: Hyperlipidemia, chronic: Anemia of chronic disease: Obesity: Plan - no indication for HD ot, will plan for Tuesday - can be discharged from renal standpoint once outpatient dialysis is set up, discussed with case management, unlikely to be done before the iday - has nephrotic range proteinuria, secondary GN and vasculitis work up ordered,all negative -Renally dose all meds and avoid nephrotoxic meds -Avoid RAAS inhibitors for now -Titrate BP meds PRN Subjective Date of service: 06/24/18 Principal diagnosis: chronic kidney disease Interval history: tolerated HD yesterday Objective - Vital Signs Vital signs: Vital Signs - 12hr 06/24/18 06/24/18 06/24/18 06:05 09:47 16:53 Temperature 98.9 F 98.8 F Pulse Rate 88 95 H 95 H Respiratory 20 20 Rate Blood Pressure 121/66 148/98 140/90 O2 Sat by Pulse 100 94 Oximetry - General Appearance General appearance: well-developed, well-nourished EENT: ATNC, PERRL Neck: no JVD, no carotid bruit Respiratory: Present: Clear to Ascultation Cardiology: regular, S1S2 Gastrointestinal: normoactive bowel sounds Integumentary: no rash, warm and dry Neurologic: no focal deficit, no asterixis, alert and oriented x3 Musculoskeletal: other (no edema iN BLE) Psychiatric: mood/affect appropriate, cooperative - Lab 06/24/18 07:16 06/24/18 07:16 Most recent lab results Calcium 9.4 mg/dL (8.4-10.2) 06/24/18 07:16 Phosphorus 7.00 mg/dL (2.5-4.5) H 06/24/18 07:16 Urine Creatinine 54.1 mg/dL (0.1-20.0) H 06/21/18 05:30 Urine Sodium 63 mmol/L 06/18/18 06:30 Urine Total Protein 256 mg/dL (5-11.8) H 06/18/18 06:30 Medications & Allergies - Medications Allergies/Adverse Reactions: Allergies ibuprofen Allergy (Verified 06/17/18 09:52) Bleeding Home Medications: Home Medications Medication Instructions Recorded Confirmed Last Taken Type Hydralazine HCl 50 mg PO TID 06/17/18 06/17/1806/16/18 History 50 ISOSORBIDE MONOnitrate [Imdur ER] 60 mg PO QDAY 06/17/18 06/17/18 06/16/18 History 60 Metoprolol Xl [Metoprolol 100 mg PO DAILY 06/17/18 06/17/18 06/16/18 History SUCCINATE ER TAB] 100 NIFEdipine [Nifedipine ER] 90 mg PO DAILY 06/17/18 06/17/18 06/16/18 History 90 Pantoprazole [Protonix] 40 mg PO QDAY 06/17/18 06/17/18 06/16/18 History 40 Active Medications: Generic Name Dose Route Start Last Admin Trade Name Freq PRN Reason Stop Dose Admin Acetaminophen 650 mg 06/17/18 19:19 Tylenol PO Q4H PRN Pain MILD(1-3)/Fever >100.5/VALDEZ Epoetin Jeison 10,000 unit 06/19/18 18:09 06/23/18 18:09 Procrit SUB-Q Not Given MOWEFR [facility] Famotidine 20 mg 06/20/18 22:00 06/24/18 09:51 Pepcid PO 20 mg DAILY VERNELL Administration Furosemide 80 mg 06/18/18 18:00 06/24/18 17:10 Lasix IV 80 mg 0600,1800 VERNELL Administration Hydralazine HCl 50 mg 06/17/18 22:00 06/24/18 14:12 Apresoline PO Not Given Q8HR VERNELL Hydromorphone HCl 1 mg 06/17/18 19:19 06/23/18 11:14 Dilaudid IV 1 mg Q3H PRN Administration Pain , Severe (7-10) Sodium Chloride 100 mls @ 999 mls/hr 06/23/18 09:59 Nacl 0.9% IV JC PRN Hypotension Isosorbide Mononitrate 60 mg 06/17/18 16:00 06/24/18 10:00 Imdur PO Not Given QDAY [facility] Metoclopramide HCl 10 mg 06/18/18 13:47 06/18/18 14:05 Reglan IV 10 mg Q6H PRN Administration Nausea And Vomiting Metoprolol Succinate 100 mg 06/18/18 10:00 06/24/18 10:00 Toprol Xl PO Not Given DAILY [facility] Nifedipine 90 mg 06/18/18 10:00 06/24/18 10:00 Procardia Xl PO Not Given QDAY VERNELL Ondansetron HCl 4 mg 06/17/18 19:19 06/19/18 09:38 Zofran IV 4 mg Q8H PRN Administration Nausea And Vomiting Oxycodone/Acetaminophen 1 tab 06/17/18 19:19 06/24/18 07:52 Percocet 5/325 PO 1 tab Q6H PRN Administration Pain, Moderate (4-6) Polyethylene Glycol 17 gm 06/18/18 17:10 06/18/18 18:23 Miralax 3350 PO 17 gm QDAY PRN Administration Constipation Promethazine HCl 25 mg 06/17/18 19:19 Phenergan CO Q6H PRN N/V IF NPO AND NO IV ACCESS Sodium Chloride 10 ml 06/17/18 22:00 06/24/18 09:51 Sodium Chloride Flush Syringe 10 Ml IV 10 ml BID VERNELL Administration Sodium Chloride 10 ml 06/17/18 19:19 Sodium Chloride Flush Syringe 10 Ml IV PRN PRN LINE FLUSH
[2018-06-25 06:22] LABS: Basophils % (Auto) 0.7 % (0.0-1.8); Eosinophils # (Auto) 0.2 K/mm3 (0.0-0.4); Eosinophils % (Auto) 3.3 % (0.0-4.3); Hematocrit 29.3 % (35.5-45.6); Hemoglobin 9.1 gm/dl (11.8-15.2); Lymphocytes # (Auto) 1.4 K/mm3 (1.2-5.4); Lymphocytes % (Auto) 21.5 % (13.4-35.0); Mean Corpuscular HGB Conc 31 % (32-34); Mean Corpuscular Volume 76 fl (84-94); Monocytes # (Auto) 0.9 K/mm3 (0.0-0.8); Monocytes % (Auto) 13.3 % (0.0-7.3); Platelet Count 156 K/mm3 (140-440); Red Blood Count 3.86 M/mm3 (3.65-5.03); Red Cell Distribution Width 18.7 % (13.2-15.2)
--- NOTE | 2018-06-25 06:39 | Progress Note ---
Assessment and Plan ESRD not on HD Chest Pain Metabolic acidosis: Acute on chronic CHF Essential HTN: Hyperlipidemia, chronic: Anemia of chronic disease: Obesity: Plan - no indication for HD, ordered for tomorrow - can be discharged from renal standpoint once outpatient dialysis is set up - negative secondary GN and vascultis work up - Renally dose all meds and avoid nephrotoxic meds - Avoid RAAS inhibitors for now Subjective Date of service: 06/25/18 Principal diagnosis: chronic kidney disease Interval history: comfortable, denies SOB Objective - Vital Signs Vital signs: Vital Signs - 12hr 06/24/18 06/24/18 06/24/18 21:37 21:40 23:14 Temperature 97.8 F Pulse Rate 95 H 95 H 94 H Respiratory 20 Rate Blood Pressure 167/104 167/104 156/85 O2 Sat by Pulse 93 91 Oximetry 06/25/18 06/25/18 02:07 04:58 Temperature 97.8 F Pulse Rate 101 H 95 H Respiratory 18 18 Rate Blood Pressure 166/99 O2 Sat by Pulse 100 90 Oximetry - General Appearance General appearance: well-developed, well-nourished, obese EENT: ATNC, PERRL, mucous membranes moist Neck: no JVD, no carotid bruit Respiratory: Present: Clear to Ascultation. Absent: Rales, Ronchi Cardiology: regular, S1S2 Gastrointestinal: normoactive bowel sounds, no hypoactive bowel sounds, no tenderness, no distended Integumentary: no rash, warm and dry Neurologic: no focal deficit, no asterixis Musculoskeletal: other (no edema IN BLE) Psychiatric: mood/affect appropriate, cooperative - Lab 06/25/18 05:50 06/24/18 07:16 Most recent lab results Calcium 9.4 mg/dL (8.4-10.2) 06/24/18 07:16 Phosphorus 7.00 mg/dL (2.5-4.5) H 06/24/18 07:16 Urine Creatinine 54.1 mg/dL (0.1-20.0) H 06/21/18 05:30 Urine Sodium 63 mmol/L 06/18/18 06:30 Urine Total Protein 256 mg/dL (5-11.8) H 06/18/18 06:30 Medications & Allergies - Medications Allergies/Adverse Reactions: Allergies ibuprofen Allergy (Verified 06/17/18 09:52) Bleeding Home Medications: Home Medications Medication Instructions Recorded Confirmed Last Taken Type Hydralazine HCl 50 mg PO TID 06/17/18 06/17/18 06/16/18 History 50 ISOSORBIDE MONOnitrate [Imdur ER] 60 mg PO QDAY 06/17/18 06/17/18 06/16/18 H istory 60 Metoprolol Xl [Metoprolol 100 mg PO DAILY 06/17/18 06/17/18 06/16/18 History SUCCINATE ER TAB] 100 NIFEdipine [Nifedipine ER] 90 mg PO DAILY 06/17/18 06/17/18 06/16/18 History 90 Pantoprazole [Protonix] 40 mg PO QDAY 06/17/18 06/17/18 06/16/18 History 40 Active Medications: Generic Name Dose Route Start Last Admin Trade Name Freq PRN Reason Stop Dose Admin Acetaminophen 650 mg 06/17/18 19:19 Tylenol PO Q4H PRN Pain MILD(1-3)/Fever >100.5/VALDEZ Epoetin Jeison 10,000 unit 06/19/18 18:09 06/23/18 18:09 Procrit SUB-Q Not Given MOWEFR VERNELL Famotidine 20 mg 06/20/18 22:00 06/24/18 09:51 Pepcid PO 20 mg DAILY VERNELL Administration Furosemide 80 mg 06/18/18 18:00 06/24/18 17:10 Lasix IV 80 mg 0600,1800 VERNELL Administration Hydralazine HCl 50 mg 06/17/18 22:00 06/24/18 21:40 Apresoline PO 50 mg Q8HR VERNELL Administration Hydromorphone HCl 1 mg 06/17/18 19:19 06/23/18 11:14 Dilaudid IV 1 mg Q3H PRN Administration Pain , Severe (7-10) Sodium Chloride 100 mls @ 999 mls/hr 06/23/18 09:59 Nacl 0.9% IV JC PRN Hypotension Isosorbide Mononitrate 60 mg 06/17/18 16:00 06/24/18 10:00 Imdur PO Not Given QDAY VERNELL Metoclopramide HCl 10 mg 06/18/18 13:47 06/18/18 14:05 Reglan IV 10 mg Q6H PRN Administration Nausea And Vomiting Metoprolol Succinate 100 mg 06/18/18 10:00 06/24/18 10:00 Toprol Xl PO Not Given DAILY VERNELL Nifedipine 90 mg 06/18/18 10:00 06/24/18 10:00 Procardia Xl PO Not Given QDAY VERNELL Ondansetron HCl 4 mg 06/17/18 19:19 06/19/18 09:38 Zofran IV 4 mg Q8H PRN Administration Nausea And Vomiting Oxycodone/Acetaminophen 1 tab 06/17/18 19:19 06/24/18 21:40 Percocet 5/325 PO 1 tab Q6H PRN Administration Pain, Moderate (4-6) Polyethylene Glycol 17 gm 06/18/18 17:10 06/18/18 18:23 Miralax 3350 PO 17 gm QDAY PRN Administration Constipation Promethazine HCl 25 mg 06/17/18 19:19 Phenergan PA Q6H PRN N/V IF NPO AND NO IV ACCESS Sodium Chloride 10 ml 06/17/18 22:00 06/24/18 21:41 Sodium Chloride Flush Syringe 10 Ml IV 10 ml BID VERNELL Administration Sodium Chloride 10 ml 06/17/18 19:19 Sodium Chloride Flush Syringe 10 Ml IV PRN PRN LINE FLUSH
[2018-06-25] MEDS: LASIX IV SCH ×2 (06:43→17:25)
[2018-06-25] MEDS: APRESOLINE PO SCH ×3 (06:44→22:43)
[2018-06-25] MEDS: PEPCID PO SCH (09:42)
[2018-06-25] MEDS: TOPROL XL PO SCH (09:42)
[2018-06-25] MEDS: PROCARDIA XL PO SCH (09:42)
[2018-06-25] MEDS: IMDUR PO SCH (09:42)
[2018-06-25] MEDS: SODIUM CHLORIDE FLUSH SYRINGE 10 ML IV SCH ×2 (09:43→22:44)
--- NOTE | 2018-06-25 12:30 | Progress Note ---
Assessment and Plan - Patient Problems (1) Chest pain Current Visit: Yes Status: Acute Plan to address problem: Atypical chest pain has resolved. Myocardial perfusion study was negative. (2) Uncontrolled hypertension Current Visit: Yes Status: Acute Plan to address problem: Blood pressure control is optimal on current medications. (3) End stage renal disease Current Visit: Yes Status: Acute Plan to address problem: End-stage renal disease management with initiation of hemodialysis on this admission. Subjective Date of service: 06/25/18 Principal diagnosis: chronic kidney disease Interval history: Patient is comfortable, no chest pain, no shortness of breath, doing well on ongoing hemodialysis. Objective Vital Signs Temp Pulse Resp BP BP Pulse Ox 06/25/18 09:42 94 H 175/91 06/25/18 06:42 93 H 18 167/111 94 06/25/18 04:58 97.8 F 95 H 18 166/99 90 06/25/18 02:07 101 H 18 100 06/24/18 23:14 97.8 F 94 H 20 156/85 91 06/24/18 21:40 95 H 167/104 06/24/18 21:37 95 H 167/104 93 06/24/18 16:53 98.8 F 95 H 20 140/90 94 - Physical Examination General: Appears Well, No Apparent Distress HEENT: Positive: PERRL Neck: Positive: trachea midline Cardiac: Positive: Reg Rate and Rhythm Lungs: Positive: Decreased Breath Sounds Neuro: Positive: Grossly Intact Abdomen: Positive: Soft Skin: Positive: Clear Extremities: Absent: edema - Labs and Meds CBC 06/25/18 Range/Units 05:50 WBC 6.6 (4.5-11.0) K/mm3 RBC 3.86 (3.65-5.03) M/mm3 Hgb 9.1 L (11.8-15.2) gm/dl Hct 29.3 L (35.5-45.6) % Plt Count 156 (140-440) K/mm3 Lymph # 1.4 (1.2-5.4) K/mm3 [place] # 0.9 H (0.0-0.8) K/mm3 Eos # 0.2 (0.0-0.4) K/mm3 Baso # 0.0 (0.0-0.1) K/mm3 Comprehensive Metabolic Panel 06/25/18 Range/Units 05:50 Sodium 138 (137-145) mmol/L Potassium 3.4 L (3.6-5.0) mmol/L Chloride 97.1 L (98-107) mmol/L Carbon Dioxide 23 (22-30) mmol/L BUN 50 H (9-20) mg/dL Creatinine 9.4 H (0.8-1.5) mg/dL Glucose 102 H (75-100) mg/dL Calcium 9.0 (8.4-10.2) mg/dL - Imaging and Cardiology EKG: report reviewed
--- NOTE | 2018-06-25 14:05 | Progress Note ---
Assessment and Plan Assessment and plan: Patient is 38 yo man with a history of hypertension, depression, CHF, CKD 4 not on hemodialysis and gerd who presented with chest pains. * 06/19/18 2D ECHO: The left ventricular chamber size is normal. Severe concentric LVH. The myocardium has a granular appearance on echo raising the suspicion of infiltrative cardiomyopathy. Global left ventricular systolic function appears hyperdynamic, estimated EF 70-75%, abnormal left ventricular diastolic filling, c/w impaired relaxation, right ventricle wall thickness is moderately increased, right ventricle is mildly dilated, moderate AR, RVSP 48 mmHg, trivial pericardial effusion * His blood pressure medications were optimized. He was seen by cardiology who performed stress test which was negative * The patient had worsening renal function and then went into end-stage renal disease. He was started on dialysis. * His medications were optimized for chronic conditions, he was counseled about improved adherence with medications. * At this point the patient is ready for discharge, and he is awaiting dialysis placement prior to discharge Diagnosis -Hypertensive malignancy with urgency -Chest pain due to hypertensive urgency Nonspecific elevation of troponin, likely due to end-stage renal disease End-stage renal disease -GERD (gastroesophageal reflux disease): -AOCD: -DVT prophylaxis: -Morbid obesity, -Non-compliance: History Interval history: Review of systems Constitutional: No fevers, no malaise, no joint pains CVS: No chest pain, no orthopnea, no dyspnea on exertion, no pedal edema GI: No abdominal pain, no diarrhea, no vomiting, no constipation Respiratory: No shortness of breath, no wheezing, no coughing Hospitalist Physical - Physical exam Narrative exam: General.: Appears well, no distress, nontoxic HEENT: Moist mucous membranes, extraocular muscles intact, no lymphadenopathy Neck: supple Cardiac: S1-S2 heard Lungs: clear to auscultation bilaterally Abdomen: soft , nontender, nondistended, bowel sounds positive Extremities: no edema clubbing or cyanosis Skin: no rash or lesions Neurologic: no gross focal deficits Psych: appropriate behavior, appropriate mood, corporative, judgment intact - Constitutional Vitals: Temp Pulse Resp BP Pulse Ox 98.4 F 94 H 22 147/90 95 06/25/18 12:12 06/25/18 12:12 06/25/18 12:12 06/25/18 12:12 06/25/18 12:12 General appearance: Present: obese Results - Labs CBC & Chem 7: 06/26/18 04:40 06/26/18 04:40 Labs: Laboratory Last Values WBC 6.6 K/mm3 (4.5-11.0) 06/25/18 05:50 RBC 3.86 M/mm3 (3.65-5.03) 06/25/18 05:50 Hgb 9.1 gm/dl (11.8-15.2) L 06/25/18 05:50 Hct 29.3 % (35.5-45.6) L 06/25/18 05:50 MCV 76 fl (84-94) L 06/25/18 05:50 MCH 24 pg (28-32) L 06/25/18 05:50 MCHC 31 % (32-34) L 06/25/18 05:50 RDW 18.7 % (13.2-15.2) H 06/25/18 05:50 Plt Count 156 K/mm3 (140-440) 06/25/18 05:50 Lymph % (Auto) 21.5 % (13.4-35.0) 06/25/18 05:50 [place] % (Auto) 13.3 % (0.0-7.3) H 06/25/18 05:50 Eos % (Auto) 3.3 % (0.0-4.3) 06/25/18 05:50 Baso % (Auto) 0.7 % (0.0-1.8) 06/25/18 05:50 Lymph # 1.4 K/mm3 (1.2-5.4) 06/25/18 05:50 [place] # 0.9 K/mm3 (0.0-0.8) H 06/25/18 05:50 Eos # 0.2 K/mm3 (0.0-0.4) 06/25/18 05:50 Baso # 0.0 K/mm3 (0.0-0.1) 06/25/18 05:50 Seg Neutrophils % 61.2 % (40.0-70.0) 06/25/18 05:50 Seg Neutrophils # 4.1 K/mm3 (1.8-7.7) 06/25/18 05:50 Sodium 138 mmol/L (137-145) 06/25/18 05:50 Potassium 3.4 mmol/L (3.6-5.0) L 06/25/18 05:50 Chloride 97.1 mmol/L (98-107) L 06/25/18 05:50 Carbon Dioxide 23 mmol/L (22-30) 06/25/18 05:50 Anion Gap 21 mmol/L 06/25/18 05:50 BUN 50 mg/dL (9-20) H 06/25/18 05:50 Creatinine 9.4 mg/dL (0.8-1.5) H 06/25/18 05:50 Estimated GFR 8 ml/min 06/25/18 05:50 BUN/Creatinine Ratio 5 % 06/25/18 05:50 Glucose 102 mg/dL (75-100) H 06/25/18 05:50 Hemoglobin A1c < 4.2 % (4-6) 06/17/18 19:24 Calcium 9.0 mg/dL (8.4-10.2) 06/25/18 05:50 Phosphorus 7.90 mg/dL (2.5-4.5) H 06/25/18 05:50 Total Bilirubin 0.20 mg/dL (0.1-1.2) 06/18/18 04:17 AST 13 units/L (5-40) 06/18/18 04:17 ALT 12 units/L (7-56) 06/18/18 04:17 Alkaline Phosphatase 71 units/L (35-129) 06/18/18 04:17 Troponin T 0.099 ng/mL (0.00-0.029) H 06/17/18 20:00 Serum Total Protein 7.5 g/dL (6.1-8.1) 06/20/18 09:22 Total Protein 6.9 g/dL (6.3-8.2) 06/18/18 04:17 Albumin 3.5 g/dL (3.8-4.8) L 06/20/18 09:22 Albumin/Globulin Ratio 0.9 % 06/18/18 04:17 Uqrjt-6-Vtwosmmhy 0.5 g/dL (0.2-0.3) H 06/20/18 09:22 Kurhz-7-Vzfemczgd 0.8 g/dL (0.5-0.9) 06/20/18 09:22 Beta Globulins 0.4 g/dL (0.2-0.5) 06/20/18 09:22 Gamma Globulins 1.8 g/dL (0.8-1.7) H 06/20/18 09:22 Abnorm Protein Band 1 see below 06/20/18 09:22 PEP Interpretation see below H 06/20/18 09:22 Triglycerides 98 mg/dL (2-149) 06/17/18 10:07 Cholesterol 161 mg/dL (50-199) 06/17/18 10:07 LDL Cholesterol Direct 121 mg/dL (50-130) 06/17/18 10:07 HDL Cholesterol 38 mg/dL (40-59) L 06/17/18 10:07 Cholesterol/HDL Ratio 4.23 % 06/17/18 10:07 Urine Color Straw (Yellow) 06/18/18 06:30 Urine Turbidity Clear (Clear) 06/18/18 06:30 Urine pH 5.0 (5.0-7.0) 06/18/18 06:30 Ur Specific [place] 1.006 (1.003-1.030) 06/18/18 06:30 Urine Protein 100 mg/dl mg/dL (Negative) 06/18/18 06:30 Urine Glucose (UA) Neg mg/dL (Negative) 06/18/18 06:30 Urine Ketones Neg mg/dL (Negative) 06/18/18 06:30 Urine Blood Neg (Negative) 06/18/18 06:30 Urine Nitrite Neg (Negative) 06/18/18 06:30 Urine Bilirubin Neg (Negative) 06/18/18 06:30 Urine Urobilinogen < 2.0 mg/dL (<2.0) 06/18/18 06:30 Ur Leukocyte Esterase Neg (Negative) 06/18/18 06:30 Urine WBC (Auto) 2.0 /HPF (0.0-6.0) 06/18/18 06:30 Urine RBC (Auto) 5.0 /HPF (0.0-6.0) 06/18/18 06:30 Amorphous Crystals 1+ 06/18/18 06:30 Urine Mucus Few /HPF 06/18/18 06:30 Urine Eosinophils None seen (None Seen) 06/18/18 06:30 Urine Creatinine 54.1 mg/dL (0.1-20.0) H 06/21/18 05:30 Protein/Creatinin Ratio 3.17 06/18/18 06:30 Urine Sodium 63 mmol/L 06/18/18 06:30 Urine Urea Nitrogen 257 06/18/18 06:30 Urine Total Protein 256 mg/dL (5-11.8) H 06/18/18 06:30 MELODY Screen Negative (Negative) 06/19/18 16:00 Proteinase 3 (PR3) Ab <1.0 AI (<1.0) 06/19/18 16:00 Myeloperoxidase Ab <1.0 AI (<1.0) 06/19/18 16:00 Complement C3 138 mg/dL (82-185) 06/19/18 16:00 Complement C4 35 mg/dL (15-53) 06/19/18 16:00 Hep Bs Antigen Non-reactive (Negative) 06/19/18 16:00 Hepatitis C Antibody Non-reactive (NonReactive) 06/19/18 16:00 HIV 1&2 Antibody Rapid Non react (Non React) 06/19/18 16:00 HIV P24 Antigen Non react (Non React) 06/19/18 16:00 Nutrition/Malnutrition Assess - Dietary Evaluation Nutrition/Malnutrition Findings: Nutrition Notes Start: 06/22/18 10:21 Freq: Status: Active Protocol: Document 06/22/18 10:21 SOTO (Rec: 06/22/18 10:26 SOTO [email or web address] [email or web address]) Nutrition Notes Need for Assessment generated from: LOS Initial or Follow up Brief Note Height 6 ft 4 in Weight 152.407 kg [place] Body Weight (lbs) 202.0 BMI 40.8 Subjective/Other Information Pt screened for LOS. He has consumed 90% of meals since admission. Percent of energy/protein needs met: 90% energy 72% pro Burn Absent Trauma Absent Is patient on ventilator? No Is Patient Ambulatory and/or Out of Bed Yes REE-([facility] or-ambulatory/OOB) [ 3322.241 NUTR.MSJOOB] Kcal/Kg value to use for calculation 14 Approximate Energy Requirements Using 2134 kcal/Kg Calculation Used for Recommendations Kcal/kg Additional Notes Pro needs 0.8-1g/kg adjBW: 98- 122g/day Fluid needs 1ml/kcal Nutrition Intervention Follow-Up By: 06/28/18 Additional Comments F/U: stable intakes
[2018-06-25] MEDS: PERCOCET 5/325 PO PRN (22:42)
[2018-06-26 05:02] LABS: Basophils % (Auto) 0.5 % (0.0-1.8); Eosinophils # (Auto) 0.2 K/mm3 (0.0-0.4); Eosinophils % (Auto) 2.9 % (0.0-4.3); Hematocrit 27.8 % (35.5-45.6); Hemoglobin 8.7 gm/dl (11.8-15.2); Lymphocytes # (Auto) 1.6 K/mm3 (1.2-5.4); Mean Corpuscular HGB Conc 31 % (32-34); Mean Corpuscular Volume 76 fl (84-94); Monocytes # (Auto) 0.8 K/mm3 (0.0-0.8); Monocytes % (Auto) 11.7 % (0.0-7.3); Platelet Count 173 K/mm3 (140-440); Red Blood Count 3.65 M/mm3 (3.65-5.03); Red Cell Distribution Width 18.7 % (13.2-15.2)
[2018-06-26 05:20] LABS: Calcium 9.1 mg/dL (8.4-10.2)
[2018-06-26] MEDS: APRESOLINE PO SCH ×3 (06:56→22:08)
[2018-06-26] MEDS: SODIUM CHLORIDE FLUSH SYRINGE 10 ML IV SCH ×2 (10:00→22:08)
[2018-06-26] MEDS: DILAUDID IV PRN (13:10)
--- NOTE | 2018-06-26 15:07 | Progress Note ---
Assessment and Plan Assessment and plan: Patient is 38 yo man with a history of hypertension, depression, CHF, CKD 4 not on hemodialysis and gerd who presented with chest pains. * 06/19/18 2D ECHO: The left ventricular chamber size is normal. Severe concentric LVH. The myocardium has a granular appearance on echo raising the suspicion of infiltrative cardiomyopathy. Global left ventricular systolic function appears hyperdynamic, estimated EF 70-75%, abnormal left ventricular diastolic filling, c/w impaired relaxation, right ventricle wall thickness is moderately increased, right ventricle is mildly dilated, moderate AR, RVSP 48 mmHg, trivial pericardial effusion * His blood pressure medications were optimized. He was seen by cardiology who performed stress test which was negative * The patient had worsening renal function and then went into end-stage renal disease. He was started on dialysis. * His medications were optimized for chronic conditions, he was counseled about improved adherence with medications. * At this point the patient is ready for discharge, and he is awaiting dialysis placement prior to discharge Diagnosis -Hypertensive malignancy with urgency -Chest pain due to hypertensive urgency Nonspecific elevation of troponin, likely due to end-stage renal disease End-stage renal disease -GERD (gastroesophageal reflux disease): -AOCD: -DVT prophylaxis: -Morbid obesity, -Non-compliance: History Interval history: Review of systems Constitutional: No fevers, no malaise, no joint pains CVS: No chest pain, no orthopnea, no dyspnea on exertion, no pedal edema GI: No abdominal pain, no diarrhea, no vomiting, no constipation Respiratory: No shortness of breath, no wheezing, no coughing Hospitalist Physical - Physical exam Narrative exam: General.: Appears well, no distress, nontoxic HEENT: Moist mucous membranes, extraocular muscles intact, no lymphadenopathy Neck: supple Cardiac: S1-S2 heard Lungs: clear to auscultation bilaterally Abdomen: soft , nontender, nondistended, bowel sounds positive Extremities: no edema clubbing or cyanosis Skin: no rash or lesions Neurologic: no gross focal deficits Psych: appropriate behavior, appropriate mood, corporative, judgment intact - Constitutional Vitals: Temp Pulse Resp BP Pulse Ox 98.2 F 87 16 152/87 96 06/26/18 13:00 06/26/18 14:30 06/26/18 13:00 06/26/18 14:30 06/26/18 11:13 General appearance: Present: obese Results - Labs CBC & Chem 7: 06/26/18 04:40 06/26/18 04:40 Labs: Laboratory Last Values WBC 7.1 K/mm3 (4.5-11.0) 06/26/18 04:40 RBC 3.65 M/mm3 (3.65-5.03) 06/26/18 04:40 Hgb 8.7 gm/dl (11.8-15.2) L 06/26/18 04:40 Hct 27.8 % (35.5-45.6) L 06/26/18 04:40 MCV 76 fl (84-94) L 06/26/18 04:40 MCH 24 pg (28-32) L 06/26/18 04:40 MCHC 31 % (32-34) L 06/26/18 04:40 RDW 18.7 % (13.2-15.2) H 06/26/18 04:40 Plt Count 173 K/mm3 (140-440) 06/26/18 04:40 Lymph % (Auto) 22.0 % (13.4-35.0) 06/26/18 04:40 [place] % (Auto) 11.7 % (0.0-7.3) H 06/26/18 04:40 Eos % (Auto) 2.9 % (0.0-4.3) 06/26/18 04:40 Baso % (Auto) 0.5 % (0.0-1.8) 06/26/18 04:40 Lymph # 1.6 K/mm3 (1.2-5.4) 06/26/18 04:40 [place] # 0.8 K/mm3 (0.0-0.8) 06/26/18 04:40 Eos # 0.2 K/mm3 (0.0-0.4) 06/26/18 04:40 Baso # 0.0 K/mm3 (0.0-0.1) 06/26/18 04:40 Seg Neutrophils % 62.9 % (40.0-70.0) 06/26/18 04:40 Seg Neutrophils # 4.5 K/mm3 (1.8-7.7) 06/26/18 04:40 Sodium 137 mmol/L (137-145) 06/26/18 04:40 Potassium 3.4 mmol/L (3.6-5.0) L 06/26/18 04:40 Chloride 95.3 mmol/L (98-107) L 06/26/18 04:40 Carbon Dioxide 23 mmol/L (22-30) 06/26/18 04:40 Anion Gap 22 mmol/L 06/26/18 04:40 BUN 58 mg/dL (9-20) H 06/26/18 04:40 Creatinine 9.5 mg/dL (0.8-1.5) H 06/26/18 04:40 Estimated GFR 8 ml/min 06/26/18 04:40 BUN/Creatinine Ratio 6 % 06/26/18 04:40 Glucose 95 mg/dL (75-100) 06/26/18 04:40 Hemoglobin A1c < 4.2 % (4-6) 06/17/18 19:24 Calcium 9.1 mg/dL (8.4-10.2) 06/26/18 04:40 Phosphorus 7.90 mg/dL (2.5-4.5) H 06/25/18 05:50 Total Bilirubin 0.20 mg/dL (0.1-1.2) 06/18/18 04:17 AST 13 units/L (5-40) 06/18/18 04:17 ALT 12 units/L (7-56) 06/18/18 04:17 Alkaline Phosphatase 71 units/L (35-129) 06/18/18 04:17 Troponin T 0.099 ng/mL (0.00-0.029) H 06/17/18 20:00 Serum Total Protein 7.5 g/dL (6.1-8.1) 06/20/18 09:22 Total Protein 6.9 g/dL (6.3-8.2) 06/18/18 04:17 Albumin 3.5 g/dL (3.8-4.8) L 06/20/18 09:22 Albumin/Globulin Ratio 0.9 % 06/18/18 04:17 Vjvve-5-Nidigdjrr 0.5 g/dL (0.2-0.3) H 06/20/18 09:22 Marwi-2-Mfgxjiytz 0.8 g/dL (0.5-0.9) 06/20/18 09:22 Beta Globulins 0.4 g/dL (0.2-0.5) 06/20/18 09:22 Gamma Globulins 1.8 g/dL (0.8-1.7) H 06/20/18 09:22 Abnorm Protein Band 1 see below 06/20/18 09:22 PEP Interpretation see below H 06/20/18 09:22 Triglycerides 98 mg/dL (2-149) 06/17/18 10:07 Cholesterol 161 mg/dL (50-199) 06/17/18 10:07 LDL Cholesterol Direct 121 mg/dL (50-130) 06/17/18 10:07 HDL Cholesterol 38 mg/dL (40-59) L 06/17/18 10:07 Cholesterol/HDL Ratio 4.23 % 06/17/18 10:07 Urine Color Straw (Yellow) 06/18/18 06:30 Urine Turbidity Clear (Clear) 06/18/18 06:30 Urine pH 5.0 (5.0-7.0) 06/18/18 06:30 Ur Specific [place] 1.006 (1.003-1.030) 06/18/18 06:30 Urine Protein 100 mg/dl mg/dL (Negative) 06/18/18 06:30 Urine Glucose (UA) Neg mg/dL (Negative) 06/18/18 06:30 Urine Ketones Neg mg/dL (Negative) 06/18/18 06:30 Urine Blood Neg (Negative) 06/18/18 06:30 Urine Nitrite Neg (Negative) 06/18/18 06:30 Urine Bilirubin Neg (Negative) 06/18/18 06:30 Urine Urobilinogen < 2.0 mg/dL (<2.0) 06/18/18 06:30 Ur Leukocyte Esterase Neg (Negative) 06/18/18 06:30 Urine WBC (Auto) 2.0 /HPF (0.0-6.0) 06/18/18 06:30 Urine RBC (Auto) 5.0 /HPF (0.0-6.0) 06/18/18 06:30 Amorphous Crystals 1+ 06/18/18 06:30 Urine Mucus Few /HPF 06/18/18 06:30 Urine Eosinophils None seen (None Seen) 06/18/18 06:30 Urine Creatinine 54.1 mg/dL (0.1-20.0) H 06/21/18 05:30 Protein/Creatinin Ratio 3.17 06/18/18 06:30 Urine Sodium 63 mmol/L 06/18/18 06:30 Urine Urea Nitrogen 257 06/18/18 06:30 Urine Total Protein 256 mg/dL (5-11.8) H 06/18/18 06:30 EMLODY Screen Negative (Negative) 06/19/18 16:00 Proteinase 3 (PR3) Ab <1.0 AI (<1.0) 06/19/18 16:00 Myeloperoxidase Ab <1.0 AI (<1.0) 06/19/18 16:00 Complement C3 138 mg/dL (82-185) 06/19/18 16:00 Complement C4 35 mg/dL (15-53) 06/19/18 16:00 Hep Bs Antigen Non-reactive (Negative) 06/19/18 16:00 Hepatitis C Antibody Non-reactive (NonReactive) 06/19/18 16:00 HIV 1&2 Antibody Rapid Non react (Non React) 06/19/18 16:00 HIV P24 Antigen Non react (Non React) 06/19/18 16:00 Nutrition/Malnutrition Assess - Dietary Evaluation Nutrition/Malnutrition Findings: Nutrition Notes Start: 06/22/18 10:21 Freq: Status: Active Protocol: Document 06/22/18 10:21 SOTO (Rec: 06/22/18 10:26 SOTO [email or web address] [email or web address]) Nutrition Notes Need for Assessment generated from: LOS Initial or Follow up Brief Note Height 6 ft 4 in Weight 152.407 kg [place] Body Weight (lbs) 202.0 BMI 40.8 Subjective/Other Information Pt screened for LOS. He has consumed 90% of meals since admission. Percent of energy/protein needs met: 90% energy 72% pro Burn Absent Trauma Absent Is patient on ventilator? No Is Patient Ambulatory and/or Out of Bed Yes REE-([place] or-ambulatory/OOB) [ 3322.241 NUTR.MSJOOB] Kcal/Kg value to use for calculation 14 Approximate Energy Requirements Using 2134 kcal/Kg Calculation Used for Recommendations Kcal/kg Additional Notes Pro needs 0.8-1g/kg adjBW: 98- 122g/day Fluid needs 1ml/kcal Nutrition Intervention Follow-Up By: 06/28/18 Additional Comments F/U: stable intakes
[2018-06-26] MEDS ORDERED: NACL 0.9 (PRIMING MACHINE ONLY DIALYSIS) MC ONE (15:48)
[2018-06-26] MEDS: PROCRIT SUB-Q SCH (15:54)
--- NOTE | 2018-06-26 18:05 | Progress Note ---
Assessment and Plan ESRD on HD: Metabolic Acidosis: - S/p HD today for UF and clearance - Assess need for HD on daily basis - Ok for pt to be discharged from renal standpoint once outpatient dialysis is set up - Negative secondary GN and vascultis work up - Renally dose all meds and avoid nephrotoxic meds - Renal plan d/w Dr Matos Hypertensive Urgency: - Adjust meds as needed - UF with HD Chest Pain: Elevated Troponin: - As per Cardiology Anemia of chronic disease: - Epogen dosing for anemia management Subjective Date of service: 06/26/18 Principal diagnosis: chronic kidney disease Interval history: Pt reports having cramping during his HD treatment today, states feels ok at this time. No family at bedside Objective - Vital Signs Vital signs: Vital Signs - 12hr 06/26/18 06/26/18 06/26/18 06:52 06:56 11:13 Temperature 98.6 F 98.1 F Pulse Rate 90 78 93 H Respiratory 20 20 Rate Blood Pressure 115/90 115/90 143/97 O2 Sat by Pulse 97 96 Oximetry 06/26/18 06/26/18 06/26/18 13:00 13:15 13:30 Temperature 98.2 F Pulse Rate 81 70 81 Respiratory 16 Rate Blood Pressure 170/98 168/97 170/98 O2 Sat by Pulse Oximetry 06/26/18 06/26/18 06/26/18 13:45 14:00 14:15 Temperature Pulse Rate 81 80 84 Respiratory Rate Blood Pressure 173/90 181/92 175/91 O2 Sat by Pulse Oximetry 06/26/18 06/26/18 06/26/18 14:30 14:45 15:00 Temperature Pulse Rate 87 87 87 Respiratory Rate Blood Pressure 152/87 174/88 168/103 O2 Sat by Pulse Oximetry 06/26/18 06/26/18 06/26/18 15:15 15:30 15:45 Temperature Pulse Rate 83 82 84 Respiratory Rate Blood Pressure 187/118 160/94 163/102 O2 Sat by Pulse Oximetry 06/26/18 16:00 Temperature Pulse Rate 84 Respiratory Rate Blood Pressure 173/102 O2 Sat by Pulse Oximetry - General Appearance General appearance: well-developed EENT: ATNC Neck: no JVD Respiratory: Present: Decreased Breath Sounds Cardiology: regular, S1S2, other (ACCESS: Right IJ Perm Catheter intact) Gastrointestinal: normoactive bowel sounds, no tenderness Integumentary: warm and dry Neurologic: alert and oriented x3 Musculoskeletal: other (trace edema to BLE) Psychiatric: mood/affect appropriate, cooperative - Lab 06/26/18 04:40 06/26/18 04:40 Most recent lab results Calcium 9.1 mg/dL (8.4-10.2) 06/26/18 04:40 Phosphorus 7.90 mg/dL (2.5-4.5) H 06/25/18 05:50 Urine Creatinine 54.1 mg/dL (0.1-20.0) H 06/21/18 05:30 Urine Sodium 63 mmol/L 06/18/18 06:30 Urine Total Protein 256 mg/dL (5-11.8) H 06/18/18 06:30 Medications & Allergies - Medications Allergies/Adverse Reactions: Allergies ibuprofen Allergy (Verified 06/17/18 09:52) Bleeding Home Medications: Home Medications Medication Instructions Recorded Confirmed Last Taken Type Hydralazine HCl 50 mg PO TID 06/17/18 06/17/18 06/16/18 History 50 ISOSORBIDE MONOnitrate [Imdur ER] 60 mg PO QDAY 06/17/18 06/17/18 06/16/18 History 60 Metoprolol Xl [Metoprolol 100 mg PO DAILY 06/17/18 06/17/18 06/16/18 History SUCCINATE ER TAB] 100 NIFEdipine [Nifedipine ER] 90 mg PO DAILY 06/17/18 06/17/18 06/16/18 History 90 Pantoprazole [Protonix] 40 mg PO QDAY 06/17/18 06/17/18 06/16/18 History 40 Active Medications: Generic Name Dose Route Start Last Admin Trade Name Freq PRN Reason Stop Dose Admin Acetaminophen 650 mg 06/17/18 19:19 Tylenol PO Q4H PRN Pain MILD(1-3)/Fever >100.5/VALDEZ Epoetin Jeison 10,000 unit 06/19/18 18:09 06/26/18 15:54 Procrit SUB-Q 10,000 unit MOWEFR VERNELL Administration Famotidine 20 mg 06/20/18 22:00 06/25/18 09:42 Pepcid PO 20 mg DAILY VERNELL Administration Furosemide 80 mg 06/18/18 18:00 06/25/18 17:25 Lasix IV 80 mg 0600,1800 [facility] Administration Hydralazine HCl 50 mg 06/17/18 22:00 06/26/18 13:48 Apresoline PO Not Given Q8HR [facility] Hydromorphone HCl 1 mg 06/17/18 19:19 06/26/18 13:10 Dilaudid IV 1 mg Q3H PRN Administration Pain , Severe (7-10) Sodium Chloride 100 mls @ 999 mls/hr 06/23/18 09:59 Nacl 0.9% IV JC PRN Hypotension Isosorbide Mononitrate 60 mg 06/17/18 16:00 06/25/18 09:42 Imdur PO 60 mg QDAY [facility] Administration Losartan Potassium 100 mg 06/26/18 18:00 Cozaar PO QDAY [facility] Metoclopramide HCl 10 mg 06/18/18 13:47 06/18/18 14:05 Reglan IV 10 mg Q6H PRN Administration Nausea And Vomiting Metoprolol Succinate 100 mg 06/18/18 10:00 06/25/18 09:42 Toprol Xl PO 100 mg DAILY [facility] Administration Nifedipine 90 mg 06/18/18 10:00 06/25/18 09:42 Procardia Xl PO 90 mg QDAY [facility] Administration Ondansetron HCl 4 mg 06/17/18 19:19 06/19/18 09:38 Zofran IV 4 mg Q8H PRN Administration Nausea And Vomiting Oxycodone/Acetaminophen 1 tab 06/17/18 19:19 06/25/18 22:42 Percocet 5/325 PO 1 tab Q6H PRN Administration Pain, Moderate (4-6) Polyethylene Glycol 17 gm 06/18/18 17:10 06/18/18 18:23 Miralax 3350 PO 17 gm QDAY PRN Administration Constipation Promethazine HCl 25 mg 06/17/18 19:19 Phenergan [place] Q6H PRN N/V IF NPO AND NO IV ACCESS Sodium Chloride 10 ml 06/17/18 22:00 06/25/18 22:44 Sodium Chloride Flush Syringe 10 Ml IV 10 ml BID VERNELL Administration Sodium Chloride 10 ml 06/17/18 19:19 Sodium Chloride Flush Syringe 10 Ml IV PRN PRN LINE FLUSH
[2018-06-26] MEDS: TOPROL XL PO SCH (18:21)
[2018-06-26] MEDS: PEPCID PO SCH (18:22)
[2018-06-26] MEDS: PROCARDIA XL PO SCH (18:22)
[2018-06-26] MEDS: IMDUR PO SCH (18:22)
[2018-06-26] MEDS: COZAAR PO SCH (18:34)
[2018-06-26] MEDS: LASIX IV SCH (18:35)
[2018-06-26] MEDS: PERCOCET 5/325 PO PRN (22:09)
[2018-06-27] MEDS: LASIX IV SCH ×3 (06:40→20:34)
[2018-06-27] MEDS: APRESOLINE PO SCH ×3 (06:55→23:07)
[2018-06-27] MEDS: PEPCID PO SCH (09:27)
[2018-06-27] MEDS: COZAAR PO SCH (09:49)
[2018-06-27] MEDS: IMDUR PO SCH (09:50)
[2018-06-27] MEDS: TOPROL XL PO SCH (09:51)
[2018-06-27] MEDS: PROCARDIA XL PO SCH (09:51)
[2018-06-27] MEDS: SODIUM CHLORIDE FLUSH SYRINGE 10 ML IV SCH ×2 (13:17→22:59)
[2018-06-27] MEDS ORDERED: XYLOCAINE 1% 20 mL ONE (14:41)
--- NOTE | 2018-06-27 14:57 | Progress Note ---
Assessment and Plan Assessment and plan: Patient is 38 yo man with a history of hypertension, depression, CHF, CKD 4 not on hemodialysis and gerd who presented with chest pains. * 06/19/18 2D ECHO: The left ventricular chamber size is normal. Severe concentric LVH. The myocardium has a granular appearance on echo raising the suspicion of infiltrative cardiomyopathy. Global left ventricular systolic function appears hyperdynamic, estimated EF 70-75%, abnormal left ventricular diastolic filling, c/w impaired relaxation, right ventricle wall thickness is moderately increased, right ventricle is mildly dilated, moderate AR, RVSP 48 mmHg, trivial pericardial effusion * His blood pressure medications were optimized. He was seen by cardiology who performed stress test which was negative * The patient had worsening renal function and then went into end-stage renal disease. He was started on dialysis. * His medications were optimized for chronic conditions, he was counseled about improved adherence with medications. * At this point the patient is ready for discharge, and he is awaiting dialysis placement prior to discharge * Adjust BP medication due to hypotension. Will decrease dose of Losartan * Discussed complaince in detail and he verbalized understanding. `15MINS SPENT Diagnosis -Hypertensive malignancy with urgency -Chest pain due to hypertensive urgency Nonspecific elevation of troponin, likely due to end-stage renal disease End-stage renal disease -GERD (gastroesophageal reflux disease): -AOCD: -DVT prophylaxis: -Morbid obesity, -Non-compliance: History Interval history: Patient seen and examined, resting comfortable, awaiting dialysis set up. Review of systems Constitutional: No fevers, no malaise, no joint pains CVS: No chest pain, no orthopnea, no dyspnea on exertion, no pedal edema GI: No abdominal pain, no diarrhea, no vomiting, no constipation Respiratory: No shortness of breath, no wheezing, no coughing Hospitalist Physical - Physical exam Narrative exam: General.: Appears well, no distress, nontoxic HEENT: Moist mucous membranes, extraocular muscles intact, no lymphadenopathy Neck: supple Cardiac: S1-S2 heard Lungs: clear to auscultation bilaterally Abdomen: soft , nontender, nondistended, bowel sounds positive Extremities: no edema clubbing or cyanosis Skin: no rash or lesions Neurologic: no gross focal deficits Psych: appropriate behavior, appropriate mood, corporative, judgment intact - Constitutional Vitals: Temp Pulse Resp BP Pulse Ox 98.3 F 88 16 116/66 97 06/27/18 12:01 06/27/18 12:01 06/27/18 12:01 06/27/18 13:56 06/27/18 12:01 General appearance: Present: obese Results - Labs CBC & Chem 7: 06/26/18 04:40 06/26/18 04:40 Labs: Laboratory Last Values WBC 7.1 K/mm3 (4.5-11.0) 06/26/18 04:40 RBC 3.65 M/mm3 (3.65-5.03) 06/26/18 04:40 Hgb 8.7 gm/dl (11.8-15.2) L 06/26/18 04:40 Hct 27.8 % (35.5-45.6) L 06/26/18 04:40 MCV 76 fl (84-94) L 06/26/18 04:40 MCH 24 pg (28-32) L 06/26/18 04:40 MCHC 31 % (32-34) L 06/26/18 04:40 RDW 18.7 % (13.2-15.2) H 06/26/18 04:40 Plt Count 173 K/mm3 (140-440) 06/26/18 04:40 Lymph % (Auto) 22.0 % (13.4-35.0) 06/26/18 04:40 [place] % (Auto) 11.7 % (0.0-7.3) H 06/26/18 04:40 Eos % (Auto) 2.9 % (0.0-4.3) 06/26/18 04:40 Baso % (Auto) 0.5 % (0.0-1.8) 06/26/18 04:40 Lymph # 1.6 K/mm3 (1.2-5.4) 06/26/18 04:40 [place] # 0.8 K/mm3 (0.0-0.8) 06/26/18 04:40 Eos # 0.2 K/mm3 (0.0-0.4) 06/26/18 04:40 Baso # 0.0 K/mm3 (0.0-0.1) 06/26/18 04:40 Seg Neutrophils % 62.9 % (40.0-70.0) 06/26/18 04:40 Seg Neutrophils # 4.5 K/mm3 (1.8-7.7) 06/26/18 04:40 Sodium 137 mmol/L (137-145) 06/26/18 04:40 Potassium 3.4 mmol/L (3.6-5.0) L 06/26/18 04:40 Chloride 95.3 mmol/L (98-107) L 06/26/18 04:40 Carbon Dioxide 23 mmol/L (22-30) 06/26/18 04:40 Anion Gap 22 mmol/L 06/26/18 04:40 BUN 58 mg/dL (9-20) H 06/26/18 04:40 Creatinine 9.5 mg/dL (0.8-1.5) H 06/26/18 04:40 Estimated GFR 8 ml/min 06/26/18 04:40 BUN/Creatinine Ratio 6 % 06/26/18 04:40 Glucose 95 mg/dL (75-100) 06/26/18 04:40 Hemoglobin A1c < 4.2 % (4-6) 06/17/18 19:24 Calcium 9.1 mg/dL (8.4-10.2) 06/26/18 04:40 Phosphorus 7.90 mg/dL (2.5-4.5) H 06/25/18 05:50 Total Bilirubin 0.20 mg/dL (0.1-1.2) 06/18/18 04:17 AST 13 units/L (5-40) 06/18/18 04:17 ALT 12 units/L (7-56) 06/18/18 04:17 Alkaline Phosphatase 71 units/L (35-129) 06/18/18 04:17 Troponin T 0.099 ng/mL (0.00-0.029) H 06/17/18 20:00 Serum Total Protein 7.5 g/dL (6.1-8.1) 06/20/18 09:22 Total Protein 6.9 g/dL (6.3-8.2) 06/18/18 04:17 Albumin 3.5 g/dL (3.8-4.8) L 06/20/18 09:22 Albumin/Globulin Ratio 0.9 % 06/18/18 04:17 Tojpz-7-Wokgapbtc 0.5 g/dL (0.2-0.3) H 06/20/18 09:22 Wfueh-2-Gadjbpcdt 0.8 g/dL (0.5-0.9) 06/20/18 09:22 Beta Globulins 0.4 g/dL (0.2-0.5) 06/20/18 09:22 Gamma Globulins 1.8 g/dL (0.8-1.7) H 06/20/18 09:22 Abnorm Protein Band 1 see below 06/20/18 09:22 PEP Interpretation see below H 06/20/18 09:22 Triglycerides 98 mg/dL (2-149) 06/17/18 10:07 Cholesterol 161 mg/dL (50-199) 06/17/18 10:07 LDL Cholesterol Direct 121 mg/dL (50-130) 06/17/18 10:07 HDL Cholesterol 38 mg/dL (40-59) L 06/17/18 10:07 Cholesterol/HDL Ratio 4.23 % 06/17/18 10:07 Urine Color Straw (Yellow) 06/18/18 06:30 Urine Turbidity Clear (Clear) 06/18/18 06:30 Urine pH 5.0 (5.0-7.0) 06/18/18 06:30 Ur Specific Moran 1.006 (1.003-1.030) 06/18/18 06:30 Urine Protein 100 mg/dl mg/dL (Negative) 06/18/18 06:30 Urine Glucose (UA) Neg mg/dL (Negative) 06/18/18 06:30 Urine Ketones Neg mg/dL (Negative) 06/18/18 06:30 Urine Blood Neg (Negative) 06/18/18 06:30 Urine Nitrite Neg (Negative) 06/18/18 06:30 Urine Bilirubin Neg (Negative) 06/18/18 06:30 Urine Urobilinogen < 2.0 mg/dL (<2.0) 06/18/18 06:30 Ur Leukocyte Esterase Neg (Negative) 06/18/18 06:30 Urine WBC (Auto) 2.0 /HPF (0.0-6.0) 06/18/18 06:30 Urine RBC (Auto) 5.0 /HPF (0.0-6.0) 06/18/18 06:30 Amorphous Crystals 1+ 06/18/18 06:30 Urine Mucus Few /HPF 06/18/18 06:30 Urine Eosinophils None seen (None Seen) 06/18/18 06:30 Urine Creatinine 54.1 mg/dL (0.1-20.0) H 06/21/18 05:30 Protein/Creatinin Ratio 3.17 06/18/18 06:30 Urine Sodium 63 mmol/L 06/18/18 06:30 Urine Urea Nitrogen 257 06/18/18 06:30 Urine Total Protein 256 mg/dL (5-11.8) H 06/18/18 06:30 MELODY Screen Negative (Negative) 06/19/18 16:00 Proteinase 3 (PR3) Ab <1.0 AI (<1.0) 06/19/18 16:00 Myeloperoxidase Ab <1.0 AI (<1.0) 06/19/18 16:00 Complement C3 138 mg/dL (82-185) 06/19/18 16:00 Complement C4 35 mg/dL (15-53) 06/19/18 16:00 Hep Bs Antigen Non-reactive (Negative) 06/19/18 16:00 Hepatitis C Antibody Non-reactive (NonReactive) 06/19/18 16:00 HIV 1&2 Antibody Rapid Non react (Non React) 06/19/18 16:00 HIV P24 Antigen Non react (Non React) 06/19/18 16:00 Nutrition/Malnutrition Assess - Dietary Evaluation Nutrition/Malnutrition Findings: Nutrition Notes Start: 06/22/18 10:21 Freq: Status: Active Protocol: Document 06/22/18 10:21 [facility] (Rec: 06/22/18 10:26 [facility] SRW- [id number]) Nutrition Notes Need for Assessment generated from: LOS Initial or Follow up Brief Note Height 6 ft 4 in Weight 152.407 kg [place] Body Weight (lbs) 202.0 BMI 40.8 Subjective/Other Information Pt screened for LOS. He has consumed 90% of meals since admission. Percent of energy/protein needs met: 90% energy 72% pro Burn Absent Trauma Absent Is patient on ventilator? No Is Patient Ambulatory and/or Out of Bed Yes [facility] [ 3322.241 [id number]] Kcal/Kg value to use for calculation 14 Approximate Energy Requirements Using 2134 kcal/Kg Calculation Used for Recommendations Kcal/kg Additional Notes Pro needs 0.8-1g/kg adjBW: 98- 122g/day Fluid needs 1ml/kcal Nutrition Intervention Follow-Up By: 06/28/18 Additional Comments F/U: stable intakes
[2018-06-27] MEDS ORDERED: NACL 0.9% 100 ML IV PRN (16:29)
--- NOTE | 2018-06-27 16:32 | Progress Note ---
Assessment and Plan ESRD on HD: Metabolic Acidosis: - S/p HD yesterday for UF and clearance - Assess need for HD on daily basis - HD tomorrow for gentle UF and clearance - HD prescription adjusted to [facility] for hypokalemia management - Ok for pt to be discharged from renal standpoint once outpatient dialysis is set up - Negative secondary GN and vascultis work up - Renally dose all meds and avoid nephrotoxic meds - Renal plan d/w Dr Matos Hypokalemia: - HD prescription adjusted to [facility] Hypertensive Urgency: - Adjust meds as needed - UF with HD Chest Pain: Elevated Troponin: - As per Cardiology Anemia of chronic disease: - Epogen dosing for anemia management Subjective Date of service: 06/27/18 Principal diagnosis: chronic kidney disease Interval history: Pt states feels ok today, denies shortness of breath. Pt reported cramping during his HD Tx yesterday. Family at bedside Objective - Vital Signs Vital signs: Vital Signs - 12hr 06/27/18 06/27/18 06/27/18 05:28 06:55 09:49 Temperature 98.8 F Pulse Rate 82 82 73 Respiratory 18 Rate Blood Pressure 96/44 96/44 109/62 O2 Sat by Pulse 91 Oximetry 06/27/18 06/27/18 06/27/18 09:50 11:59 12:01 Temperature 98.3 F Pulse Rate 73 97 H 88 Respiratory 16 Rate Blood Pressure 109/62 116/66 O2 Sat by Pulse 96 97 Oximetry 06/27/18 13:56 Temperature Pulse Rate Respiratory Rate Blood Pressure 116/66 O2 Sat by Pulse Oximetry - General Appearance General appearance: well-developed EENT: ATNC Neck: no JVD Respiratory: Present: Decreased Breath Sounds Cardiology: regular, S1S2, other (ACCESS: Right IJ Perm Catheter intact) Gastrointestinal: normoactive bowel sounds, no tenderness Integumentary: warm and dry Neurologic: alert and oriented x3 Musculoskeletal: other (trace edema to both lower extremities) Psychiatric: cooperative - Lab 06/26/18 04:40 06/26/18 04:40 Most recent lab results Calcium 9.1 mg/dL (8.4-10.2) 06/26/18 04:40 Phosphorus 7.90 mg/dL (2.5-4.5) H 06/25/18 05:50 Urine Creatinine 54.1 mg/dL (0.1-20.0) H 06/21/18 05:30 Urine Sodium 63 mmol/L 06/18/18 06:30 Urine Total Protein 256 mg/dL (5-11.8) H 06/18/18 06:30 Medications & Allergies - Medications Allergies/Adverse Reactions: Allergies ibuprofen Allergy (Verified 06/17/18 09:52) Bleeding Home Medications: Home Medications Medication Instructions Recorded Confirmed Last Taken Type Hydralazine HCl 50 mg PO TID 06/17/18 06/17/18 06/16/18 History 50 ISOSORBIDE MONOnitrate [Imdur ER] 60 mg PO QDAY 06/17/18 06/17/18 06/16/18 History 60 Metoprolol Xl [Metoprolol 100 mg PO DAILY 06/17/18 06/17/18 06/16/18 History SUCCINATE ER TAB] 100 NIFEdipine [Nifedipine ER] 90 mg PO DAILY 06/17/18 06/17/18 06/16/18 History 90 Pantoprazole [Protonix] 40 mg PO QDAY 06/17/18 06/17/18 06/16/18 History 40 Active Medications: Generic Name Dose Route Start Last Admin Trade Name Freq PRN Reason Stop Dose Admin Acetaminophen 650 mg 06/17/18 19:19 Tylenol PO Q4H PRN Pain MILD(1-3)/Fever >100.5/VALDEZ Epoetin Jeison 10,000 unit 06/19/18 18:09 06/26/18 15:54 Procrit SUB-Q 10,000 unit MOWEFR VERNELL Administration Famotidine 20 mg 06/20/18 22:00 06/27/18 09:27 Pepcid PO 20 mg DAILY VERNELL Administration Furosemide 80 mg 06/18/18 18:00 06/27/18 06:40 Lasix IV Not Given 0600,1800 VERNELL Hydralazine HCl 50 mg 06/17/18 22:00 06/27/18 13:56 Apresoline PO Not Given Q8HR VERNELL Hydromorphone HCl 1 mg 06/17/18 19:19 06/26/18 13:10 Dilaudid IV 1 mg Q3H PRN Administration Pain , Severe (7-10) Sodium Chloride 100 mls @ 999 mls/hr 06/23/18 09:59 Nacl 0.9% IV JC PRN Hypotension Isosorbide Mononitrate 60 mg 06/17/18 16:00 06/27/18 09:50 Imdur PO Not Given QDAY [facility] Losartan Potassium 50 mg 06/27/18 14:55 Cozaar PO QDAY [facility] Metoclopramide HCl 10 mg 06/18/18 13:47 06/18/18 14:05 Reglan IV 10 mg Q6H PRN Administration Nausea And Vomiting Metoprolol Succinate 100 mg 06/18/18 10:00 06/27/18 09:51 Toprol Xl PO Not Given DAILY [facility] Nifedipine 90 mg 06/18/18 10:00 06/27/18 09:51 Procardia Xl PO Not Given QDAY [facility] Ondansetron HCl 4 mg 06/17/18 19:19 06/19/18 09:38 Zofran IV 4 mg Q8H PRN Administration Nausea And Vomiting Oxycodone/Acetaminophen 1 tab 06/17/18 19:19 06/26/18 22:09 Percocet 5/325 PO 1 tab Q6H PRN Administration Pain, Moderate (4-6) Polyethylene Glycol 17 gm 06/18/18 17:10 06/18/18 18:23 Miralax 3350 PO 17 gm QDAY PRN Administration Constipation Promethazine HCl 25 mg 06/17/18 19:19 Phenergan [place] Q6H PRN N/V IF NPO AND NO IV ACCESS Sodium Chloride 10 ml 06/17/18 22:00 06/27/18 13:17 Sodium Chloride Flush Syringe 10 Ml IV 10 ml BID VERNELL Administration Sodium Chloride 10 ml 06/17/18 19:19 Sodium Chloride Flush Syringe 10 Ml IV PRN PRN LINE FLUSH
[2018-06-27] MEDS: PROCRIT SUB-Q SCH (20:33)
[2018-06-27] MEDS: ZOFRAN IV PRN (22:58)
[2018-06-27] MEDS: DILAUDID IV PRN (22:58)
[2018-06-28] MEDS: APRESOLINE PO SCH ×3 (06:04→21:20)
[2018-06-28] MEDS: LASIX IV SCH ×2 (06:05→21:20)
--- NOTE | 2018-06-28 09:54 | Progress Note ---
Assessment and Plan ESRD on HD: Metabolic Acidosis: - HD today for gentle UF and clearance - HD prescription adjusted to [facility] for hypokalemia management - Ok for pt to be discharged from renal standpoint once outpatient dialysis is set up - Negative secondary GN and vascultis work up - Renally dose all meds and avoid nephrotoxic meds Hypokalemia: - HD prescription adjusted to [facility] Hypertensive Urgency: - Adjust meds as needed - UF with HD Chest Pain: Elevated Troponin: - As per Cardiology Anemia of chronic disease: - Epogen dosing for anemia management Subjective Date of service: 06/28/18 Principal diagnosis: chronic kidney disease Interval history: denies acute issues, comfortable Objective - Vital Signs Vital signs: Vital Signs - 12hr 06/27/18 06/27/18 06/27/18 22:00 22:58 23:03 Temperature 98.5 F Pulse Rate 89 Respiratory 18 20 Rate Respiratory 18 Rate [Chest] Blood Pressure 147/83 O2 Sat by Pulse 95 Oximetry 06/27/18 06/28/18 23:28 05:12 Temperature 98.0 F Pulse Rate 82 Respiratory 18 18 Rate Respiratory Rate [Chest] Blood Pressure 144/92 O2 Sat by Pulse 96 Oximetry - General Appearance General appearance: well-developed, well-nourished, obese EENT: ATNC, PERRL Neck: no JVD, no carotid bruit Respiratory: Present: Clear to Ascultation, Normal Exam Cardiology: regular, S1S2 Gastrointestinal: normoactive bowel sounds, no tenderness, no distended Integumentary: no rash, warm and dry Neurologic: no focal deficit, no asterixis, alert and oriented x3 Musculoskeletal: other (no edema iN BLE) Psychiatric: mood/affect appropriate, cooperative - Lab 06/26/18 04:40 06/26/18 04:40 Most recent lab results Calcium 9.1 mg/dL (8.4-10.2) 06/26/18 04:40 Phosphorus 7.90 mg/dL (2.5-4.5) H 06/25/18 05:50 Urine Creatinine 54.1 mg/dL (0.1-20.0) H 06/21/18 05:30 Urine Sodium 63 mmol/L 06/18/18 06:30 Urine Total Protein 256 mg/dL (5-11.8) H 06/18/18 06:30 Medications & Allergies - Medications Allergies/Adverse Reactions: Allergies ibuprofen Allergy (Verified 06/17/18 09:52) Bleeding Home Medications: Home Medications Medication Instructions Recorded Confirmed Last Taken Type Hydralazine HCl 50 mg PO TID 06/17/18 06/17/18 06/16/18 History 50 ISOSORBIDE MONOnitrate [Imdur ER] 60 mg PO QDAY 06/17/18 06/17/18 06/16/18 History 60 Metoprolol Xl [Metoprolol 100 mg PO DAILY 06/17/18 06/17/18 06/16/18 History SUCCINATE ER TAB] 100 NIFEdipine [Nifedipine ER] 90 mg PO DAILY 06/17/18 06/17/18 06/16/18 History 90 Pantoprazole [Protonix] 40 mg PO QDAY 06/17/18 06/17/18 06/16/18 History 40 Active Medications: Generic Name Dose Route Start Last Admin Trade Name Freq PRN Reason Stop Dose Admin Acetaminophen 650 mg 06/17/18 19:19 Tylenol PO Q4H PRN Pain MILD(1-3)/Fever >100.5/VALDEZ Epoetin Jeison 10,000 unit 06/19/18 18:09 06/27/18 20:33 Procrit SUB-Q Not Given MOWEFR VERNELL Famotidine 20 mg 06/20/18 22:00 06/27/18 09:27 Pepcid PO 20 mg DAILY VERNELL Administration Furosemide 80 mg 06/18/18 18:00 06/28/18 06:05 Lasix IV Not Given 0600,1800 [facility] Hydralazine HCl 50 mg 06/17/18 22:00 06/28/18 06:04 Apresoline PO 50 mg Q8HR VERNELL Administration Hydromorphone HCl 1 mg 06/17/18 19:19 06/27/18 22:58 Dilaudid IV 1 mg Q3H PRN Administration Pain , Severe (7-10) Sodium Chloride 100 mls @ 999 mls/hr 06/23/18 09:59 Nacl 0.9% IV JC PRN Hypotension Sodium Chloride 100 mls @ 999 mls/hr 06/27/18 16:29 Nacl 0.9% IV JC PRN Hypotension Isosorbide Mononitrate 60 mg 06/17/18 16:00 06/27/18 09:50 Imdur PO Not Given QDAY [facility] Losartan Potassium 50 mg 01/01/19 14:55 Cozaar PO QDAY [facility] Metoclopramide HCl 10 mg 06/18/18 13:47 06/18/18 14:05 Reglan IV 10 mg Q6H PRN Administration Nausea And Vomiting Metoprolol Succinate 100 mg 06/18/18 10:00 06/27/18 09:51 Toprol Xl PO Not Given DAILY [facility] Nifedipine 90 mg 06/18/18 10:00 06/27/18 09:51 Procardia Xl PO Not Given QDAY [facility] Ondansetron HCl 4 mg 06/17/18 19:19 06/27/18 22:58 Zofran IV 4 mg Q8H PRN Administration Nausea And Vomiting Oxycodone/Acetaminophen 1 tab 06/17/18 19:19 06/26/18 22:09 Percocet 5/325 PO 1 tab Q6H PRN Administration Pain, Moderate (4-6) Polyethylene Glycol 17 gm 06/18/18 17:10 06/18/18 18:23 Miralax 3350 PO 17 gm QDAY PRN Administration Constipation Promethazine HCl 25 mg 06/17/18 19:19 Phenergan [place] Q6H PRN N/V IF NPO AND NO IV ACCESS Sodium Chloride 10 ml 06/17/18 22:00 06/27/18 22:59 Sodium Chloride Flush Syringe 10 Ml IV 10 ml BID VERNELL Administration Sodium Chloride 10 ml 06/17/18 19:19 Sodium Chloride Flush Syringe 10 Ml IV PRN PRN LINE FLUSH
[2018-06-28] MEDS: DILAUDID IV PRN (09:58)
[2018-06-28] MEDS: PROCRIT SUB-Q SCH ×2 (11:13→20:09)
--- NOTE | 2018-06-28 11:14 | Discharge Summary ---
Providers - Providers Date of Admission: 06/17/18 13:03 Attending physician: LUH VALADEZ MD 06/17/18 19:31 Consult to Physician [CONS] Routine Comment: Consulting Provider: JEEVAN HARRIS Physician Instructions: Reason For Exam: ESRD 06/19/18 09:38 Consult to Physician [CONS] Routine Comment: Consulting Provider: IQRA GRACE Physician Instructions: Reason For Exam: L kidney mass 06/21/18 11:10 Consult to Physician [CONS] Routine Comment: Consulting Provider: JESUSITA WISE Physician Instructions: Reason For Exam: permcath 06/21/18 11:15 Consult to Case Management [CONS] Routine Services Needed at Discharge: Other Notified:: nancy Phone number called:: [phone] Was contact made?: Yes Additional Physician Instructions: New outpatient dialysis Primary care physician: [facility] Hospitalization Reason for admission: chest pain Condition: Stable Hospital course: Patient is 38 yo man with a history of hypertension, depression, CHF, CKD 4 not on hemodialysis and gerd who presented with chest pains. * 06/19/18 2D ECHO: The left ventricular chamber size is normal. Severe concentric LVH. The myocardium has a granular appearance on echo raising the suspicion of infiltrative cardiomyopathy. Global left ventricular systolic function appears hyperdynamic, estimated EF 70-75%, abnormal left ventricular diastolic filling, c/w impaired relaxation, right ventricle wall thickness is moderately increased, right ventricle is mildly dilated, moderate AR, RVSP 48 mmHg, trivial pericardial effusion * His blood pressure medications were optimized. He was seen by cardiology who performed stress test which was negative * The patient had worsening renal function and then went into end-stage renal disease. He was started on dialysis. * His medications were optimized for chronic conditions, he was counseled about improved adherence with medications. * At this point the patient is ready for discharge, and he is awaiting dialysis placement prior to discharge * Adjust BP medication due to hypotension. Will decrease dose of Losartan * Discussed complaince in detail and he verbalized understanding. `15MINS SPENT Diagnosis -Hypertensive malignancy with urgency -Chest pain due to hypertensive urgency -Nonspecific elevation of troponin, likely due to end-stage renal disease -End-stage renal disease -GERD (gastroesophageal reflux disease): -AOCD: -DVT prophylaxis: -Morbid obesity, -Non-compliance: Disposition: TO HOME OR SELFCARE Time spent for discharge: 35 mins Core Measure Documentation - Palliative Care Palliative Care/ Comfort Measures: Not Applicable - Core Measures Any of the following diagnoses?: none Exam - Physical Exam Narrative exam: General.: Appears well, no distress, nontoxic HEENT: Moist mucous membranes, extraocular muscles intact, no lymphadenopathy Neck: supple Cardiac: S1-S2 heard Lungs: clear to auscultation bilaterally Abdomen: soft , nontender, nondistended, bowel sounds positive Extremities: no edema clubbing or cyanosis Skin: no rash or lesions Neurologic: no gross focal deficits Psych: appropriate behavior, appropriate mood, corporative, judgment intact - Constitutional Vitals: Temp Pulse Resp BP Pulse Ox 97.7 F 81 16 134/75 96 06/28/18 09:30 06/28/18 11:00 06/28/18 09:30 06/28/18 11:00 06/28/18 05:12 Plan Activity: advance as tolerated, fall precautions Diet: renal Special Instructions: restrict fluid intake to (1200cc/day), record daily weights Follow up with: PRIMARY MD BUBBA [Primary Care Provider] - 3-5 Days ABIOLA GERMAIN MD [Staff Physician] - 7 Days MARIAH BRANCH MD [Staff Physician] - 7 Days Prescriptions: Famotidine [Pepcid] 20 mg PO DAILY #30 tablet Hydralazine HCl 50 mg PO TID #90 tablet ISOSORBIDE MONOnitrate [Imdur ER] 60 mg PO QDAY #30 tablet Losartan [Cozaar] 50 mg PO QDAY #30 tablet NIFEdipine [Nifedipine ER] 90 mg PO DAILY #30 tablet.er
--- NOTE | 2018-06-28 11:14 | Progress Note ---
Assessment and Plan Assessment and plan: Patient is 38 yo man with a history of hypertension, depression, CHF, CKD 4 not on hemodialysis and gerd who presented with chest pains. * 06/19/18 2D ECHO: The left ventricular chamber size is normal. Severe concentric LVH. The myocardium has a granular appearance on echo raising the suspicion of infiltrative cardiomyopathy. Global left ventricular systolic function appears hyperdynamic, estimated EF 70-75%, abnormal left ventricular diastolic filling, c/w impaired relaxation, right ventricle wall thickness is moderately increased, right ventricle is mildly dilated, moderate AR, RVSP 48 mmHg, trivial pericardial effusion * His blood pressure medications were optimized. He was seen by cardiology who performed stress test which was negative * The patient had worsening renal function and then went into end-stage renal disease. He was started on dialysis. * His medications were optimized for chronic conditions, he was counseled about improved adherence with medications. * At this point the patient is ready for discharge, and he is awaiting dialysis placement prior to discharge * Adjust BP medication due to hypotension. Will decrease dose of Losartan * Discussed complaince in detail and he verbalized understanding. `15MINS SPENT Diagnosis -Hypertensive malignancy with urgency-better controlled -Chest pain due to hypertensive urgency-negative as noted above -Nonspecific elevation of troponin, likely due to end-stage renal disease -End-stage renal disease;-dialysis per Nephrology -GERD (gastroesophageal reflux disease): -AOCD: -DVT prophylaxis: -Morbid obesity, -Non-compliance: History Interval history: Patient seen and examined, resting comfortable, awaiting dialysis set up. Review of systems Constitutional: No fevers, no malaise, no joint pains CVS: No chest pain, no orthopnea, no dyspnea on exertion, no pedal edema GI: No abdominal pain, no diarrhea, no vomiting, no constipation Respiratory: No shortness of breath, no wheezing, no coughing Hospitalist Physical - Physical exam Narrative exam: General.: Appears well, no distress, nontoxic HEENT: Moist mucous membranes, extraocular muscles intact, no lymphadenopathy Neck: supple Cardiac: S1-S2 heard Lungs: clear to auscultation bilaterally Abdomen: soft , nontender, nondistended, bowel sounds positive Extremities: no edema clubbing or cyanosis Skin: no rash or lesions Neurologic: no gross focal deficits Psych: appropriate behavior, appropriate mood, corporative, judgment intact - Constitutional Vitals: Temp Pulse Resp BP Pulse Ox 97.7 F 81 16 134/75 96 06/28/18 09:30 06/28/18 11:00 06/28/18 09:30 06/28/18 11:00 06/28/18 05:12 General appearance: Present: obese Results - Labs CBC & Chem 7: 06/26/18 04:40 06/26/18 04:40 Labs: Laboratory Last Values WBC 7.1 K/mm3 (4.5-11.0) 06/26/18 04:40 RBC 3.65 M/mm3 (3.65-5.03) 06/26/18 04:40 Hgb 8.7 gm/dl (11.8-15.2) L 06/26/18 04:40 Hct 27.8 % (35.5-45.6) L 06/26/18 04:40 MCV 76 fl (84-94) L 06/26/18 04:40 MCH 24 pg (28-32) L 06/26/18 04:40 MCHC 31 % (32-34) L 06/26/18 04:40 RDW 18.7 % (13.2-15.2) H 06/26/18 04:40 Plt Count 173 K/mm3 (140-440) 06/26/18 04:40 Lymph % (Auto) 22.0 % (13.4-35.0) 06/26/18 04:40 [place] % (Auto) 11.7 % (0.0-7.3) H 06/26/18 04:40 Eos % (Auto) 2.9 % (0.0-4.3) 06/26/18 04:40 Baso % (Auto) 0.5 % (0.0-1.8) 06/26/18 04:40 Lymph # 1.6 K/mm3 (1.2-5.4) 06/26/18 04:40 [place] # 0.8 K/mm3 (0.0-0.8) 06/26/18 04:40 Eos # 0.2 K/mm3 (0.0-0.4) 06/26/18 04:40 Baso # 0.0 K/mm3 (0.0-0.1) 06/26/18 04:40 Seg Neutrophils % 62.9 % (40.0-70.0) 06/26/18 04:40 Seg Neutrophils # 4.5 K/mm3 (1.8-7.7) 06/26/18 04:40 Sodium 137 mmol/L (137-145) 06/26/18 04:40 Potassium 3.4 mmol/L (3.6-5.0) L 06/26/18 04:40 Chloride 95.3 mmol/L (98-107) L 06/26/18 04:40 Carbon Dioxide 23 mmol/L (22-30) 06/26/18 04:40 Anion Gap 22 mmol/L 06/26/18 04:40 BUN 58 mg/dL (9-20) H 06/26/18 04:40 Creatinine 9.5 mg/dL (0.8-1.5) H 06/26/18 04:40 Estimated GFR 8 ml/min 06/26/18 04:40 BUN/Creatinine Ratio 6 % 06/26/18 04:40 Glucose 95 mg/dL (75-100) 06/26/18 04:40 Hemoglobin A1c < 4.2 % (4-6) 06/17/18 19:24 Calcium 9.1 mg/dL (8.4-10.2) 06/26/18 04:40 Phosphorus 7.90 mg/dL (2.5-4.5) H 06/25/18 05:50 Total Bilirubin 0.20 mg/dL (0.1-1.2) 06/18/18 04:17 AST 13 units/L (5-40) 06/18/18 04:17 ALT 12 units/L (7-56) 06/18/18 04:17 Alkaline Phosphatase 71 units/L (35-129) 06/18/18 04:17 Troponin T 0.099 ng/mL (0.00-0.029) H 06/17/18 20:00 Serum Total Protein 7.5 g/dL (6.1-8.1) 06/20/18 09:22 Total Protein 6.9 g/dL (6.3-8.2) 06/18/18 04:17 Albumin 3.5 g/dL (3.8-4.8) L 06/20/18 09:22 Albumin/Globulin Ratio 0.9 % 06/18/18 04:17 Bwpfg-7-Algzvxjlg 0.5 g/dL (0.2-0.3) H 06/20/18 09:22 Zjjtq-2-Xbpfckxab 0.8 g/dL (0.5-0.9) 06/20/18 09:22 Beta Globulins 0.4 g/dL (0.2-0.5) 06/20/18 09:22 Gamma Globulins 1.8 g/dL (0.8-1.7) H 06/20/18 09:22 Abnorm Protein Band 1 see below 06/20/18 09:22 PEP Interpretation see below H 06/20/18 09:22 Triglycerides 98 mg/dL (2-149) 06/17/18 10:07 Cholesterol 161 mg/dL (50-199) 06/17/18 10:07 LDL Cholesterol Direct 121 mg/dL (50-130) 06/17/18 10:07 HDL Cholesterol 38 mg/dL (40-59) L 06/17/18 10:07 Cholesterol/HDL Ratio 4.23 % 06/17/18 10:07 Urine Color Straw (Yellow) 06/18/18 06:30 Urine Turbidity Clear (Clear) 06/18/18 06:30 Urine pH 5.0 (5.0-7.0) 06/18/18 06:30 Ur Specific [place] 1.006 (1.003-1.030) 06/18/18 06:30 Urine Protein 100 mg/dl mg/dL (Negative) 06/18/18 06:30 Urine Glucose (UA) Neg mg/dL (Negative) 06/18/18 06:30 Urine Ketones Neg mg/dL (Negative) 06/18/18 06:30 Urine Blood Neg (Negative) 06/18/18 06:30 Urine Nitrite Neg (Negative) 06/18/18 06:30 Urine Bilirubin Neg (Negative) 06/18/18 06:30 Urine Urobilinogen < 2.0 mg/dL (<2.0) 06/18/18 06:30 Ur Leukocyte Esterase Neg (Negative) 06/18/18 06:30 Urine WBC (Auto) 2.0 /HPF (0.0-6.0) 06/18/18 06:30 Urine RBC (Auto) 5.0 /HPF (0.0-6.0) 06/18/18 06:30 Amorphous Crystals 1+ 06/18/18 06:30 Urine Mucus Few /HPF 06/18/18 06:30 Urine Eosinophils None seen (None Seen) 06/18/18 06:30 Urine Creatinine 54.1 mg/dL (0.1-20.0) H 06/21/18 05:30 Protein/Creatinin Ratio 3.17 06/18/18 06:30 Urine Sodium 63 mmol/L 06/18/18 06:30 Urine Urea Nitrogen 257 06/18/18 06:30 Urine Total Protein 256 mg/dL (5-11.8) H 06/18/18 06:30 MELODY Screen Negative (Negative) 06/19/18 16:00 Proteinase 3 (PR3) Ab <1.0 AI (<1.0) 06/19/18 16:00 Myeloperoxidase Ab <1.0 AI (<1.0) 06/19/18 16:00 Complement C3 138 mg/dL (82-185) 06/19/18 16:00 Complement C4 35 mg/dL (15-53) 06/19/18 16:00 Hep Bs Antigen Non-reactive (Negative) 06/19/18 16:00 Hepatitis C Antibody Non-reactive (NonReactive) 06/19/18 16:00 HIV 1&2 Antibody Rapid Non react (Non React) 06/19/18 16:00 HIV P24 Antigen Non react (Non React) 06/19/18 16:00 Nutrition/Malnutrition Assess - Dietary Evaluation Nutrition/Malnutrition Findings: Nutrition Notes Start: 06/22/18 10:21 Freq: Status: Active Protocol: Document 06/22/18 10:21 CAIGLESIA (Rec: 06/22/18 10:26 [email or web address] [id number]) Nutrition Notes Need for Assessment generated from: LOS Initial or Follow up Brief Note Height 6 ft 4 in Weight 152.407 kg [place] Body Weight (lbs) 202.0 BMI 40.8 Subjective/Other Information Pt screened for LOS. He has consumed 90% of meals since admission. Percent of energy/protein needs met: 90% energy 72% pro Burn Absent Trauma Absent Is patient on ventilator? No Is Patient Ambulatory and/or Out of Bed Yes REE-([place] Jeor-ambulatory/OOB) [ 3322.241 NUTR.MSJOOB] Kcal/Kg value to use for calculation 14 Approximate Energy Requirements Using 2134 kcal/Kg Calculation Used for Recommendations Kcal/kg Additional Notes Pro needs 0.8-1g/kg adjBW: 98- 122g/day Fluid needs 1ml/kcal Nutrition Intervention Follow-Up By: 06/28/18 Additional Comments F/U: stable intakes
[2018-06-28] MEDS ORDERED: NACL 0.9 (PRIMING MACHINE ONLY DIALYSIS) MC ONE (11:16)
[2018-06-28] MEDS: PEPCID PO SCH (13:27)
[2018-06-28] MEDS: TOPROL XL PO SCH (13:31)
[2018-06-28] MEDS: SODIUM CHLORIDE FLUSH SYRINGE 10 ML IV SCH ×2 (13:32→21:20)
[2018-06-28] MEDS: IMDUR PO SCH (13:33)
[2018-06-28] MEDS: PROCARDIA XL PO SCH (13:33)
[2018-06-28] MEDS: COZAAR PO SCH (13:35)
[2018-06-28] MEDS: PERCOCET 5/325 PO PRN (21:26)
[2018-06-29] MEDS: LASIX IV SCH (05:58)
[2018-06-29] MEDS: APRESOLINE PO SCH ×2 (05:58→14:01)
--- NOTE | 2018-06-29 10:13 | Progress Note ---
Assessment and Plan Assessment and plan: Patient is 38 yo man with a history of hypertension, depression, CHF, CKD 4 not on hemodialysis and gerd who presented with chest pains. * 06/19/18 2D ECHO: The left ventricular chamber size is normal. Severe concentric LVH. The myocardium has a granular appearance on echo raising the suspicion of infiltrative cardiomyopathy. Global left ventricular systolic function appears hyperdynamic, estimated EF 70-75%, abnormal left ventricular diastolic filling, c/w impaired relaxation, right ventricle wall thickness is moderately increased, right ventricle is mildly dilated, moderate AR, RVSP 48 mmHg, trivial pericardial effusion * His blood pressure medications were optimized. He was seen by cardiology who performed stress test which was negative * The patient had worsening renal function and then went into end-stage renal disease. He was started on dialysis. * His medications were optimized for chronic conditions, he was counseled about improved adherence with medications. * At this point the patient is ready for discharge, and he is awaiting dialysis placement prior to discharge * Adjust BP medication due to hypotension. Will decrease dose of Losartan * Discussed complaince in detail and he verbalized understanding. `15MINS SPENT Diagnosis -Hypertensive malignancy with urgency-better controlled -Chest pain due to hypertensive urgency-negative as noted above -Nonspecific elevation of troponin, likely due to end-stage renal disease -End-stage renal disease;-dialysis per Nephrology -GERD (gastroesophageal reflux disease): -AOCD: -DVT prophylaxis: -Morbid obesity, -Non-compliance: Hospitalist Physical - Constitutional Vitals: Temp Pulse Resp BP Pulse Ox 98.1 F 78 18 122/58 96 06/28/18 17:43 06/29/18 05:58 06/28/18 21:59 06/29/18 05:58 06/28/18 17:43 General appearance: Present: obese Results - Labs CBC & Chem 7: 06/26/18 04:40 06/26/18 04:40 Labs: Laboratory Last Values WBC 7.1 K/mm3 (4.5-11.0) 06/26/18 04:40 RBC 3.65 M/mm3 (3.65-5.03) 06/26/18 04:40 Hgb 8.7 gm/dl (11.8-15.2) L 06/26/18 04:40 Hct 27.8 % (35.5-45.6) L 06/26/18 04:40 MCV 76 fl (84-94) L 06/26/18 04:40 MCH 24 pg (28-32) L 06/26/18 04:40 MCHC 31 % (32-34) L 06/26/18 04:40 RDW 18.7 % (13.2-15.2) H 06/26/18 04:40 Plt Count 173 K/mm3 (140-440) 06/26/18 04:40 Lymph % (Auto) 22.0 % (13.4-35.0) 06/26/18 04:40 [place] % (Auto) 11.7 % (0.0-7.3) H 06/26/18 04:40 Eos % (Auto) 2.9 % (0.0-4.3) 06/26/18 04:40 Baso % (Auto) 0.5 % (0.0-1.8) 06/26/18 04:40 Lymph # 1.6 K/mm3 (1.2-5.4) 06/26/18 04:40 [place] # 0.8 K/mm3 (0.0-0.8) 06/26/18 04:40 Eos # 0.2 K/mm3 (0.0-0.4) 06/26/18 04:40 Baso # 0.0 K/mm3 (0.0-0.1) 06/26/18 04:40 Seg Neutrophils % 62.9 % (40.0-70.0) 06/26/18 04:40 Seg Neutrophils # 4.5 K/mm3 (1.8-7.7) 06/26/18 04:40 Sodium 137 mmol/L (137-145) 06/26/18 04:40 Potassium 3.4 mmol/L (3.6-5.0) L 06/26/18 04:40 Chloride 95.3 mmol/L (98-107) L 06/26/18 04:40 Carbon Dioxide 23 mmol/L (22-30) 06/26/18 04:40 Anion Gap 22 mmol/L 06/26/18 04:40 BUN 58 mg/dL (9-20) H 06/26/18 04:40 Creatinine 9.5 mg/dL (0.8-1.5) H 06/26/18 04:40 Estimated GFR 8 ml/min 06/26/18 04:40 BUN/Creatinine Ratio 6 % 06/26/18 04:40 Glucose 95 mg/dL (75-100) 06/26/18 04:40 Hemoglobin A1c < 4.2 % (4-6) 06/17/18 19:24 Calcium 9.1 mg/dL (8.4-10.2) 06/26/18 04:40 Phosphorus 7.90 mg/dL (2.5-4.5) H 06/25/18 05:50 Total Bilirubin 0.20 mg/dL (0.1-1.2) 06/18/18 04:17 AST 13 units/L (5-40) 06/18/18 04:17 ALT 12 units/L (7-56) 06/18/18 04:17 Alkaline Phosphatase 71 units/L (35-129) 06/18/18 04:17 Troponin T 0.099 ng/mL (0.00-0.029) H 06/17/18 20:00 Serum Total Protein 7.5 g/dL (6.1-8.1) 06/20/18 09:22 Total Protein 6.9 g/dL (6.3-8.2) 06/18/18 04:17 Albumin 3.5 g/dL (3.8-4.8) L 06/20/18 09:22 Albumin/Globulin Ratio 0.9 % 06/18/18 04:17 Ctjbx-7-Xubfwiduj 0.5 g/dL (0.2-0.3) H 06/20/18 09:22 Pvrhx-1-Upletmekv 0.8 g/dL (0.5-0.9) 06/20/18 09:22 Beta Globulins 0.4 g/dL (0.2-0.5) 06/20/18 09:22 Gamma Globulins 1.8 g/dL (0.8-1.7) H 06/20/18 09:22 Abnorm Protein Band 1 see below 06/20/18 09:22 PEP Interpretation see below H 06/20/18 09:22 Triglycerides 98 mg/dL (2-149) 06/17/18 10:07 Cholesterol 161 mg/dL (50-199) 06/17/18 10:07 LDL Cholesterol Direct 121 mg/dL (50-130) 06/17/18 10:07 HDL Cholesterol 38 mg/dL (40-59) L 06/17/18 10:07 Cholesterol/HDL Ratio 4.23 % 06/17/18 10:07 Urine Color Straw (Yellow) 06/18/18 06:30 Urine Turbidity Clear (Clear) 06/18/18 06:30 Urine pH 5.0 (5.0-7.0) 06/18/18 06:30 Ur Specific [place] 1.006 (1.003-1.030) 06/18/18 06:30 Urine Protein 100 mg/dl mg/dL (Negative) 06/18/18 06:30 Urine Glucose (UA) Neg mg/dL (Negative) 06/18/18 06:30 Urine Ketones Neg mg/dL (Negative) 06/18/18 06:30 Urine Blood Neg (Negative) 06/18/18 06:30 Urine Nitrite Neg (Negative) 06/18/18 06:30 Urine Bilirubin Neg (Negative) 06/18/18 06:30 Urine Urobilinogen < 2.0 mg/dL (<2.0) 06/18/18 06:30 Ur Leukocyte Esterase Neg (Negative) 06/18/18 06:30 Urine WBC (Auto) 2.0 /HPF (0.0-6.0) 06/18/18 06:30 Urine RBC (Auto) 5.0 /HPF (0.0-6.0) 06/18/18 06:30 Amorphous Crystals 1+ 06/18/18 06:30 Urine Mucus Few /HPF 06/18/18 06:30 Urine Eosinophils None seen (None Seen) 06/18/18 06:30 Urine Creatinine 54.1 mg/dL (0.1-20.0) H 06/21/18 05:30 Protein/Creatinin Ratio 3.17 06/18/18 06:30 Urine Sodium 63 mmol/L 06/18/18 06:30 Urine Urea Nitrogen 257 06/18/18 06:30 Urine Total Protein 256 mg/dL (5-11.8) H 06/18/18 06:30 MELODY Screen Negative (Negative) 06/19/18 16:00 Proteinase 3 (PR3) Ab <1.0 AI (<1.0) 06/19/18 16:00 Myeloperoxidase Ab <1.0 AI (<1.0) 06/19/18 16:00 Glomerular Base Mem IgG See scanned result 06/19/18 16:00 Complement C3 138 mg/dL (82-185) 06/19/18 16:00 Complement C4 35 mg/dL (15-53) 06/19/18 16:00 Hep Bs Antigen Non-reactive (Negative) 06/19/18 16:00 Hepatitis C Antibody Non-reactive (NonReactive) 06/19/18 16:00 HIV 1&2 Antibody Rapid Non react (Non React) 06/19/18 16:00 HIV P24 Antigen Non react (Non React) 06/19/18 16:00 Nutrition/Malnutrition Assess - Dietary Evaluation Nutrition/Malnutrition Findings: Nutrition Notes Start: 06/22/18 10:21 Freq: Status: Active Protocol: Document 06/28/18 14:35 RM (Rec: 06/28/18 14:36 RM [id number]) Nutrition Notes Initial or Follow up Brief Note Height 6 ft 4 in Weight 152.407 kg [place] Body Weight (lbs) 202.0 BMI 40.8 Subjective/Other Information PO intake 100% X 2 days. Nutrition Intervention Revisit per MD consult or patient Sign Off request:
--- NOTE | 2018-06-29 11:01 | Progress Note ---
Assessment and Plan ESRD on HD: Metabolic Acidosis: - no indication for HD today - Ok for pt to be discharged from renal standpoint once outpatient dialysis is set up - Negative secondary GN and vascultis work up - Renally dose all meds and avoid nephrotoxic meds Hypokalemia: - HD prescription adjusted Hypertensive Urgency: - Adjust meds as needed - UF with HD Chest Pain: Elevated Troponin: - As per Cardiology Anemia of chronic disease: - Epogen dosing for anemia management Subjective Date of service: 06/29/18 Principal diagnosis: chronic kidney disease Interval history: tolerated HD yesterday Objective - Vital Signs Vital signs: Vital Signs - 12hr 06/29/18 05:58 Pulse Rate 78 Blood Pressure 122/58 - General Appearance General appearance: well-developed, well-nourished EENT: ATNC, PERRL, mucous membranes moist Neck: no JVD, no carotid bruit Respiratory: Present: Clear to Ascultation Cardiology: regular, S1S2 Gastrointestinal: normoactive bowel sounds, no tenderness Integumentary: no rash, warm and dry Neurologic: no focal deficit, no asterixis, alert and oriented x3 Musculoskeletal: other (no edema in BLE) Psychiatric: mood/affect appropriate, cooperative - Lab 06/26/18 04:40 06/26/18 04:40 Most recent lab results Calcium 9.1 mg/dL (8.4-10.2) 06/26/18 04:40 Phosphorus 7.90 mg/dL (2.5-4.5) H 06/25/18 05:50 Urine Creatinine 54.1 mg/dL (0.1-20.0) H 06/21/18 05:30 Urine Sodium 63 mmol/L 06/18/18 06:30 Urine Total Protein 256 mg/dL (5-11.8) H 06/18/18 06:30 Medications & Allergies - Medications Allergies/Adverse Reactions: Allergies ibuprofen Allergy (Verified 06/17/18 09:52) Bleeding Home Medications: Home Medications Medication Instructions Recorded Confirmed Last Taken Type Metoprolol Xl [Metoprolol 100 mg PO DAILY 06/17/18 06/17/18 06/16/18 History SUCCINATE ER TAB] 100 Pantoprazole [Protonix TAB] 40 mg PO QDAY 06/17/18 06/17/18 06/16/18 History 40 Famotidine [Pepcid] 20 mg PO DAILY #30 tablet 06/28/18 Unknown Rx Hydralazine HCl 50 mg PO TID #90 tablet 06/28/18 Unknown Rx ISOSORBIDE MONOnitrate [Imdur ER] 60 mg PO QDAY #30 tablet 06/28/18 Unknown Rx Losartan [Cozaar] 50 mg PO QDAY #30 tablet 06/28/18 Unknown Rx NIFEdipine [Nifedipine ER] 90 mg PO DAILY #30 tablet.er 06/28/18 Unknown Rx Active Medications: Generic Name Dose Route Start Last Admin Trade Name Freq PRN Reason Stop Dose Admin Acetaminophen 650 mg 06/17/18 19:19 Tylenol PO Q4H PRN Pain MILD(1-3)/Fever >100.5/VALDEZ Epoetin Jeison 10,000 unit 06/19/18 18:09 06/28/18 20:09 Procrit SUB-Q Not Given MOWEFR VERNELL Famotidine 20 mg 06/20/18 22:00 06/28/18 13:27 Pepcid PO 20 mg DAILY VERNELL Administration Furosemide 80 mg 06/18/18 18:00 06/29/18 05:58 Lasix IV 80 mg 0600,1800 VERNELL Administration Hydralazine HCl 50 mg 06/17/18 22:00 06/29/18 05:58 Apresoline PO Not Given Q8HR [facility] Hydromorphone HCl 1 mg 06/17/18 19:19 06/28/18 09:58 Dilaudid IV 1 mg Q3H PRN Administration Pain , Severe (7-10) Sodium Chloride 100 mls @ 999 mls/hr 06/27/18 16:29 Nacl 0.9% IV JC PRN Hypotension Isosorbide Mononitrate 60 mg 06/17/18 16:00 06/28/18 13:33 Imdur PO Not Given QDAY [facility] Losartan Potassium 50 mg 06/27/18 14:55 06/28/18 13:35 Cozaar PO Not Given QDAY [facility] Metoclopramide HCl 10 mg 06/18/18 13:47 06/18/18 14:05 Reglan IV 10 mg Q6H PRN Administration Nausea And Vomiting Metoprolol Succinate 100 mg 06/18/18 10:00 06/28/18 13:31 Toprol Xl PO 100 mg DAILY VERNELL Administration Nifedipine 90 mg 06/18/18 10:00 06/28/18 13:33 Procardia Xl PO Not Given QDAY VERNELL Ondansetron HCl 4 mg 06/17/18 19:19 06/27/18 22:58 Zofran IV 4 mg Q8H PRN Administration Nausea And Vomiting Oxycodone/Acetaminophen 1 tab 06/17/18 19:19 06/28/18 21:26 Percocet 5/325 PO 1 tab Q6H PRN Administration Pain, Moderate (4-6) Polyethylene Glycol 17 gm 06/18/18 17:10 06/18/18 18:23 Miralax 3350 PO 17 gm QDAY PRN Administration Constipation Promethazine HCl 25 mg 06/17/18 19:19 Phenergan CO Q6H PRN N/V IF NPO AND NO IV ACCESS Sodium Chloride 10 ml 06/17/18 22:00 06/28/18 21:20 Sodium Chloride Flush Syringe 10 Ml IV 10 ml BID VERNELL Administration Sodium Chloride 10 ml 06/17/18 19:19 Sodium Chloride Flush Syringe 10 Ml IV PRN PRN LINE FLUSH
[2018-06-29] MEDS: TOPROL XL PO SCH (11:14)
[2018-06-29] MEDS: PROCARDIA XL PO SCH (11:14)
[2018-06-29] MEDS: COZAAR PO SCH (11:15)
[2018-06-29] MEDS: PEPCID PO SCH (11:16)
[2018-06-29] MEDS: IMDUR PO SCH (11:16)
[2018-06-29] MEDS: SODIUM CHLORIDE FLUSH SYRINGE 10 ML IV SCH (11:22)
[2018-06-29 14:01] VITALS: BP 119/78
--- NOTE | 2018-06-29 16:41 | Progress Note ---
Subjective Date of service: 06/29/18 Principal diagnosis: chronic kidney disease Interval history: Patient has no new complaints. Awake alert in NAD. Ambulatory Right IJ permcath present Respirations nonlabored at rest. Good ROM all extremities He has ESRD and currently getting hemodialysis with right IJ permacath. 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 Vein mapping ordered not completed at time of this evaluation. He is right hand dominant. Advised no venipuncture, IV, or blood pressures to left arm in preparation for permanent hemodialysis access which can be created in outpatient setting. Discussed types of access, risks, benefits and alternatives in detail with him. He needs to follow up in office to get scheduled for creation of permament hemodialysis access. Objective - Constitutional Vitals: Vital Signs - 12hr 06/29/18 06/29/18 06/29/18 05:58 11:05 11:14 Temperature 98.3 F Pulse Rate 78 85 Respiratory 20 Rate Blood Pressure 122/58 167/101 157/97 O2 Sat by Pulse 93 Oximetry 06/29/18 06/29/18 06/29/18 11:15 11:16 14:01 Temperature Pulse Rate Respiratory Rate Blood Pressure 157/97 157/97 119/78 O2 Sat by Pulse Oximetry - Labs CBC & Chem 7: 06/26/18 04:40 06/26/18 04:40 Medications & Allergies - Medications Allergies/Adverse Reactions: Allergies ibuprofen Allergy (Verified 06/17/18 09:52) Bleeding Home Medications: Home Medications Medication Instructions Recorded Confirmed Last Taken Type Metoprolol Xl [Metoprolol 100 mg PO DAILY 06/17/18 06/17/18 06/16/18 History SUCCINATE ER TAB] 100 Pantoprazole [Protonix TAB] 40 mg PO QDAY 06/17/18 06/17/18 06/16/18 History 40 Famotidine [Pepcid] 20 mg PO DAILY #30 tablet 06/28/18 Unknown Rx Hydralazine HCl 50 mg PO TID #90 tablet 06/28/18 Unknown Rx ISOSORBIDE MONOnitrate [Imdur ER] 60 mg PO QDAY #30 tablet 06/28/18 Unknown Rx Losartan [Cozaar] 50 mg PO QDAY #30 tablet 06/28/18 Unknown Rx NIFEdipine [Nifedipine ER] 90 mg PO DAILY #30 tablet.er 06/28/18 Unknown Rx Active Medications: Generic Name Dose Route Start Last Admin Trade Name Freq PRN Reason Stop Dose Admin Acetaminophen 650 mg 06/17/18 19:19 Tylenol PO Q4H PRN Pain MILD(1-3)/Fever >100.5/VALDEZ Epoetin Jeison 10,000 unit 06/19/18 18:09 06/28/18 20:09 Procrit SUB-Q Not Given MOWEFR [facility] Famotidine 20 mg 06/20/18 22:00 06/29/18 11:16 Pepcid PO 20 mg DAILY VERNELL Administration Furosemide 80 mg 06/18/18 18:00 06/29/18 05:58 Lasix IV 80 mg 0600,1800 VERNELL Administration Hydralazine HCl 50 mg 06/17/18 22:00 06/29/18 14:01 Apresoline PO Not Given Q8HR [facility] Hydromorphone HCl 1 mg 06/17/18 19:19 06/28/18 09:58 Dilaudid IV 1 mg Q3H PRN Administration Pain , Severe (7-10) Sodium Chloride 100 mls @ 999 mls/hr 06/27/18 16:29 Nacl 0.9% IV JC PRN Hypotension Isosorbide Mononitrate 60 mg 06/17/18 16:00 06/29/18 11:16 Imdur PO 60 mg QDAY [facility] Administration Losartan Potassium 50 mg 06/27/18 14:55 06/29/18 11:15 Cozaar PO 50 mg QDAY VERNELL Administration Metoclopramide HCl 10 mg 06/18/18 13:47 06/18/18 14:05 Reglan IV 10 mg Q6H PRN Administration Nausea And Vomiting Metoprolol Succinate 100 mg 06/18/18 10:00 06/29/18 11:14 Toprol Xl PO 100 mg DAILY VERNELL Administration Nifedipine 90 mg 06/18/18 10:00 06/29/18 11:14 Procardia Xl PO 90 mg QDAY [facility] Administration Ondansetron HCl 4 mg 06/17/18 19:19 06/27/18 22:58 Zofran IV 4 mg Q8H PRN Administration Nausea And Vomiting Oxycodone/Acetaminophen 1 tab 06/17/18 19:19 06/28/18 21:26 Percocet 5/325 PO 1 tab Q6H PRN Administration Pain, Moderate (4-6) Polyethylene Glycol 17 gm 06/18/18 17:10 06/18/18 18:23 Miralax 3350 PO 17 gm QDAY PRN Administration Constipation Promethazine HCl 25 mg 06/17/18 19:19 Phenergan GA Q6H PRN N/V IF NPO AND NO IV ACCESS Sodium Chloride 10 ml 06/17/18 22:00 06/29/18 11:22 Sodium Chloride Flush Syringe 10 Ml IV 10 ml BID VERNELL Administration Sodium Chloride 10 ml 06/17/18 19:19 Sodium Chloride Flush Syringe 10 Ml IV PRN PRN LINE FLUSH
[2018-06-30 07:17] LABS: Protein/Creatinine Ratio SEE SCANNED RESULT
[2018-06-30 07:18] LABS: Abnormal Protein Band 1 SEE SCANNED RESULT; Abnormal Protein Band 2 SEE SCANNED RESULT; Albumin SEE SCANNED RESULT; Creatinine, Random Urine SEE SCANNED RESULT; Gamma Globulin SEE SCANNED RESULT; Interpretation SEE SCANNED RESULT
--- NOTE | 2018-07-03 21:50 | Vascular Lab Report ---
FINAL REPORT PROCEDURE: Bilateral upper extremity duplex venous mapping. Limited bilateral upper extremity duplex arterial ultrasound. TECHNIQUE: Duplex Doppler ultrasound of the BILATERAL upper extremity veins and incompetent perforat ors was attempted. Panchal scale imaging with and without compression, spectral waveform analysis with a nd without augmentation, and color flow Doppler were employed. CPT 00246 HISTORY: Vein mapping of the upper extremities for end stage renal disease. COMPARISON: No prior studies are available for comparison. FINDINGS: RIGHT UPPER EXTREMITY: BASILIC Vein Upper Arm: Proximal diameter: 7.7 x 11.4 mm Mid diameter: 5.9 x 7.4 mm Distal diameter: 6.2 x 4.1 mm BASILIC Vein Forearm: Proximal diameter: 4.7 x 3.1 mm Mid diameter: 5.9 x 2.9 mm Distal diameter: 5.0 x 1.7 mm CEPHALIC Vein Upper Arm: Proximal diameter: 2.5 x 2.5 mm Mid diameter: 3.5 x 3.8 mm Distal diameter: 1.9 x 2.4 mm CEPHALIC Vein Forearm: Proximal diameter: 2.9 x 3.8 mm Mid diameter: 2.6 x 3.9 mm Distal diameter: 2.2 x 3.6 mm LEFT UPPER EXTREMITY: BASILIC Vein Upper Arm: Proximal diameter: 4.7 x 5.4 mm Mid diameter: 3.6 x 5.4 mm Distal diameter: 4.1 x 3.8 mm BASILIC Vein Forearm: Proximal diameter: 1.9 x 3.6 mm Mid diameter: 2.2 x 3.4 mm Distal diameter: 1.7 x 3.6 mm CEPHALIC Vein Upper Arm: Proximal diameter: 2.9 x 2.9 mm Mid diameter: 2.7 x 2.0 mm Distal diameter: 2.7 x 2.9 mm CEPHALIC Vein Forearm: Proximal diameter: 3.5 x 1.9 mm Mid diameter: 3.2 x 1.8 mm Distal diameter: 1.7 x 2.0 mm Both internal jugular veins, both subclavian veins and both axillary veins are patent. There are norm al triphasic arterial waveforms in both radial arteries and in both brachial arteries. IMPRESSION: Venous mapping measurements as detailed above. No superficial venous thrombosis. No evidence of signi ficant arterial obstruction.
== END 2018-06-29 19:55 | disposition home or self-care (01) | DRG 673 ==
LOC: ED 09:27 → 4A 13:03 → 3A 06-21 14:59
PROVIDERS: ADMIT Internal Medicine; ATTEND Internal Medicine
PROC: 0JH63XZ Insertion of Tunneled Vascular Access Device into Chest Subcutaneous Tissue and Fascia, Percutaneous Approach (ICD-10-PCS; principal; 2018-06-22)
PROC: B2141ZZ Fluoroscopy of Right Heart using Low Osmolar Contrast (ICD-10-PCS; 2018-06-22)
PROC: 02H633Z Insertion of Infusion Device into Right Atrium, Percutaneous Approach (ICD-10-PCS; 2018-06-22)
PROC: B244ZZZ Ultrasonography of Right Heart (ICD-10-PCS; 2018-06-22)
PROC: 5A1D70Z Performance of Urinary Filtration, Intermittent, Less than 6 Hours Per Day (ICD-10-PCS; 2018-06-22)
PROC: 5A1D70Z Performance of Urinary Filtration, Intermittent, Less than 6 Hours Per Day (ICD-10-PCS; 2018-06-23)
PROC: 5A1D70Z Performance of Urinary Filtration, Intermittent, Less than 6 Hours Per Day (ICD-10-PCS; 2018-06-26)
PROC: 5A1D70Z Performance of Urinary Filtration, Intermittent, Less than 6 Hours Per Day (ICD-10-PCS; 2018-06-28)
DX: N17.0 Acute kidney failure with tubular necrosis (principal); I50.23 Acute on chronic systolic (congestive) heart failure; I16.1 Hypertensive emergency; Z68.41 Body mass index [BMI] 40.0-44.9, adult; I42.0 Dilated cardiomyopathy; E87.2 Acidosis; I13.2 Hypertensive heart and chronic kidney disease with heart failure and with stage 5 chronic kidney disease, or end stage renal disease; N18.6 End stage renal disease; J44.9 Chronic obstructive pulmonary disease, unspecified; E66.01 Morbid (severe) obesity due to excess calories; F32.9 Major depressive disorder, single episode, unspecified; I50.9 Heart failure, unspecified; K21.0 Gastro-esophageal reflux disease with esophagitis; D63.1 Anemia in chronic kidney disease; N52.9 Male erectile dysfunction, unspecified; E87.6 Hypokalemia; Z82.49 Family history of ischemic heart disease and other diseases of the circulatory system; Z88.6 Allergy status to analgesic agent; Z91.14 Patient's other noncompliance with medication regimen; Z71.89 Other specified counseling; Z71.3 Dietary counseling and surveillance
CPT/HCPCS: 36415; 36558; 71045; 74018; 74150; 76770; 77001; 78452; 80048; 80053; 80061; 81001; 82570; 83036; 83520; 84100; 84156; 84165; 84166; 84300; 84484; 84520; 85025; 86021; 86038; 86160; 86706; 86803; 87806; 89050; 93005; 93010; 93017; 93306; 93970; 96374; 96375; G0378; A9502; C1750; J0360; J0690; J0885; J1170; J1644; J1940; J2250; J2270; J2405; J2765; J2785; J3010; J7030; J7050

== ENCOUNTER 2018-09-19 07:55 | Day surgery (SDC) | payer MEDICARE ==
[~2018-09-19 07:55] MED LIST: ANCEF/STERILE WATER 2 GM/20 ML 2 GM/20 ML SYRINGE IV NR; NACL 0.9% 1000 ML 1,000 ML IV SCH
--- NOTE | 2018-09-19 09:21 | Anesthesia Consultation ---
Anesthesia Consult and Med Hx Date of service: 09/19/18 - Airway Anesthetic Teeth Evaluation: Good ROM Head & Neck: Adequate Mental/Hyoid Distance: Adequate Mallampati Class: Class II Intubation Access Assessment: Probably Good - Pulmonary Exam CTA: Yes - Cardiac Exam Cardiac Exam: RRR - Pre-Operative Health Status ASA Pre-Surgery Classification: ASA4 Proposed Anesthetic Plan: General - Pulmonary Hx Smoking: No Hx Asthma: No Hx Respiratory Symptoms: No Hx Sleep Apnea: No (Per pt needs to have sleep study done) - Cardiovascular System Hx Hypertension: Yes (took antihypertensives today) Hx Heart Attack/AMI: No Hx Percutaneous Transluminal Coronary Angioplasty (PTCA): No Hx Heart Murmur: Yes - Central Nervous System Hx Seizures: No CVA: No Hx Psychiatric Problems: No - Endocrine Hx End Stage Renal Disease: Yes (last HD 09/18/18) Hx Liver Disease: No Hx Insulin Dependent Diabetes: No Hx Non-Insulin Dependent Diabetes: No Hx Thyroid Disease: No - Hematic Hx Anemia: Yes - Other Systems Hx Alcohol Use: Yes (Occas) Hx Obesity: Yes - Additional Comments Anesthesia Medical History Comments: No hx anesthetic complications. Cardiology records from 05/2018 show hyperdynamic LV with possible infiltrative cardiomyopathy on TTE and dilated cardiomyopathy with EF 45% on ST.
[2018-09-19] MEDS ORDERED: SUBLIMAZE IV NR (09:22)
--- NOTE | 2018-09-19 09:22 | Anesthesia Day of Surgery ---
Anesthesia Day of Surgery - Day of Surgery Patient Examined: Yes Patient H&P Reviewed: Yes Patient is NPO: Yes Beta Blockers: Yes (last dose metoprolol today AM)
[2018-09-19] MEDS: VERSED IV NR ×2 (09:47→10:41)
[2018-09-19 10:14] LABS: Basophils % (Auto) 0.8 % (0.0-1.8); Eosinophils # (Auto) 0.1 K/mm3 (0.0-0.4); Hematocrit 36.8 % (35.5-45.6); Hemoglobin 11.6 gm/dl (11.8-15.2); Lymphocytes # (Auto) 1.4 K/mm3 (1.2-5.4); Lymphocytes % (Auto) 30.2 % (13.4-35.0); Mean Corpuscular HGB Conc 32 % (32-34); Mean Corpuscular Volume 80 fl (84-94); Monocytes # (Auto) 0.5 K/mm3 (0.0-0.8); Monocytes % (Auto) 11.6 % (0.0-7.3); Platelet Count 121 K/mm3 (140-440); Red Blood Count 4.57 M/mm3 (3.65-5.03); Red Cell Distribution Width 19.8 % (13.2-15.2)
[2018-09-19 10:21] LABS: Calcium 9.2 mg/dL (8.4-10.2)
[2018-09-19] MEDS ORDERED: XYLOCAINE MPF 2% ONE (10:51)
[2018-09-19] MEDS ORDERED: DIPRIVAN 10 MG/ML IV ONE (10:52)
[2018-09-19] MEDS ORDERED: SUBLIMAZE ONE (10:52)
[2018-09-19] MEDS ORDERED: MARCAINE-EPI 0.5%-1:200,000 INFILTRATI ONE ×2 (10:55→11:11)
[2018-09-19] MEDS ORDERED: HEPARIN 10,000 UNITS/10 ML IR ONE (10:55)
[2018-09-19] MEDS ORDERED: NITROGLYCERIN SYRINGE UD ONE (10:55)
[2018-09-19] MEDS ORDERED: THROMBIN (BOVINE) TP ONE ×2 (10:55→11:11)
[2018-09-19] MEDS ORDERED: NACL 0.9% IR ONE ×2 (10:55)
[2018-09-19] MEDS ORDERED: GELFOAM TP ONE ×2 (10:55→11:11)
[2018-09-19] MEDS ORDERED: NACL 0.9% 500 ML 500 ML ONE ×2 (11:11→11:12)
[2018-09-19] MEDS ORDERED: HEPARIN 10,000 UNITS/10 ML ONE (11:11)
[2018-09-19] MEDS ORDERED: NEO SYNEPHRINE/NS Syringe(OR USE) IV ONE (12:13)
--- NOTE | 2018-09-19 12:30 | Short Stay Summary ---
Short Stay Documentation Date of service: 09/19/18 - History H&P: obtained from office - Allergies and Medications Current Medications: Allergies ibuprofen Allergy (Verified 09/05/18 15:11) Bleeding Home Medications Medication Instructions Recorded Confirmed Last Taken Type Metoprolol Xl [Metoprolol 100 mg PO DAILY 06/17/18 09/19/18 09/19/18 07:00 History SUCCINATE ER TAB] Hydralazine HCl 50 mg PO TID #90 tablet 06/28/18 09/19/18 09/19/18 07:00 Rx ISOSORBIDE MONOnitrate [Imdur ER] 60 mg PO QDAY #30 tablet 06/28/18 09/19/18 09/19/18 07:00 Rx Losartan [Cozaar] 50 mg PO QDAY #30 tablet 06/28/18 09/19/18 09/19/18 07:00 Rx Esomeprazole Magnesium [Nexium] 40 mg PO DAILY 09/19/18 09/19/18 09/19/18 07:00 History Active Medications Fentanyl (Sublimaze) 100 mcg IV ONCE NR Stop: 09/19/18 16:00 Cefazolin Sodium (Ancef/Sterile Water 2 Gm/20 Ml) 2 gm in 20 mls @ 80 mls/hr IV PREOP NR; Protocol Stop: 09/19/18 23:59 Sodium Chloride (Nacl 0.9% 1000 Ml) 1,000 mls @ 42 mls/hr IV DIRECT VERNELL Last Admin: 09/19/18 09:45 Dose: 42 mls/hr Documented by: Midazolam HCl (Versed) 2 mg IV PREOP NR Stop: 09/19/18 23:59 Last Admin: 09/19/18 10:41 Dose: 2 mg Documented by: - Brief post op/procedure progress note Date of procedure: 09/19/18 Pre-op diagnosis: end-stage renal disease Post-op diagnosis: same Procedure: Left arm cephalic vein to radial artery fistula at the distal forearm Anesthesia: GETA, local Findings: Good thrill in the fistula and palpable left radial pulse at the end of the case Surgeon: CHEN CHEN Pallet Rectifier: GUANAKO BEEBE Estimated blood loss: minimal Pathology: none Condition: stable - Hospital course Hospital course: benign - Disposition Condition at discharge: Good Disposition: DC-01 TO HOME OR SELFCARE Short Stay Discharge Plan Activity: advance as tolerated Diet: advance as tolerated Follow up with: CHEN CHEN MD [Staff Physician] - 14 Days Prescriptions: HYDROcodone/APAP 5-325 [[place] 5/325] 1 each PO Q6HR PRN #20 tablet PRN Reason: Pain
--- NOTE | 2018-09-19 12:37 | Operative Report ---
Operative Report Operative Report: Date of procedure: 09/19/2018 Pre-operative diagnosis: End-stage renal failure Post-operative diagnosis: Same Procedure name(s): Cephalic vein to radial artery fistula at the level of the distal forearm in the left upper extremity Surgeon: Kali Velasquez MD Automotive Upholsterer: Kala Caro NP Anesthesia: Local MAC EBL: Less than 50 mL Operative indication: Patient is a 38 year old man with a history of end-stage renal failure. The patient presents for establishment of long-term hemodialysis access. Findings: Excellent thrill in the arteriovenous fistula at the end of the procedure. Easily palpable radial pulse distal to the anastomosis. Procedure: The patient was placed on the table in the supine position. The left arm was prepped with ChloraPrep solution and draped in the usual sterile fashion. The ultrasound was used to identify the cephalic vein after a tourniquet had been pl aced in the upper arm using a rubber glove. The vein appeared to be of adequate caliber and no thrombus was noted. After thorough examination of the arm, the cephalic vein in the midforearm appeared to be suitable for use. The basilic vein was patent but did not cross the elbow as a usable vein. I was concerned that doing a basilic vein fistula would not leave enough length to be elevated in this man's somewhat large arm. Under local anesthesia, an incision was made in the distal forearm. Dissection was carried out to identify the cephalic vein. Dissection was also carried out to identify the radial artery. The vein was dissected from the surrounding tissue to provide enough length to reach the artery. A longitudinal incision was made in the vein. Nitroglycerin was instilled into the vein to dwell while the anastomosis was created. An arteriotomy was made in the artery. Nitroglycerin was instilled into the proximal portion of the artery as well. An end-to-side anastomosis was created using running 7-0 Prolene. A #2 Kandace catheter was used to make sure all vessels were patent. The anastomosis was completed and flow started into the fistula. There was a thrill up the arm. Hemostasis was obtained. The wound was infiltrated with half percent Marcaine and epinephrine. Closure was done with 3-0 Vicryl and 4-0 subcuticular PDS. Dermabond was placed. The patient tolerated the procedure well. There was an easily palpable left radial pulse at the end of the procedure. There was a good thrill in the fistula at the end of the procedure. Sponge, needle, and instrument counts were reported as correct.
[2018-09-19] MEDS ORDERED: SUBLIMAZE IV PRN (13:19)
[2018-09-19 13:49] VITALS: BP 119/77
[2018-09-19] MEDS ORDERED: NORCO 5/325 PO PRN (14:30)
--- NOTE | 2018-09-19 14:43 | Post Anesthesia Evaluation ---
- Post Anesthesia Evaluation Patient Participated: Yes Airway Patent: Yes Stable Respiratory Function: Yes Nausea/Vomiting: No Temp > 96.8F: Yes Pain Manageable: Yes Adequeate Hydration: Yes Anesthesia Complications: No
== END 2018-09-19 14:24 | disposition home or self-care (01) ==
LOC: OR 07:55
PROVIDERS: ATTEND Surgery Vascular Surgery
DX: I13.2 Hypertensive heart and chronic kidney disease with heart failure and with stage 5 chronic kidney disease, or end stage renal disease (principal); N18.6 End stage renal disease; I50.9 Heart failure, unspecified; K21.9 Gastro-esophageal reflux disease without esophagitis; D64.9 Anemia, unspecified; I48.91 Unspecified atrial fibrillation; E66.9 Obesity, unspecified; Z68.36 Body mass index [BMI] 36.0-36.9, adult; Z99.2 Dependence on renal dialysis; Z72.89 Other problems related to lifestyle; Z79.899 Other long term (current) drug therapy; Z98.890 Other specified postprocedural states; Z88.8 Allergy status to other drugs, medicaments and biological substances
CPT/HCPCS: 36415; 36821; 80048; 85025; A4649; C1757; J0690; J1644; J2250; J2370; J2704; J3010; J7030; J7040; 76937